=== PATIENT | female | born 1955 | race Caucasian/White ===

== ENCOUNTER 2020-06-04 03:18 | Outpatient (CLI) | payer MEDICAID, SELFPAY ==
--- NOTE | 2020-06-04 | DI.MRI_ITS ---
EXAM: MR LUMBAR SPINE WO INDICATION: RADICULOPATHY,M54.17, LOW BACK PAIN WITH RADIATION TO RLE,NUMBNESS,PAR-. COMPARISON: No exams were available for comparison TECHNIQUE: MR examination of the lumbosacral spine was performed according to the usual protocol. FINDINGS: No significant bony signal abnormality is seen. Intervertebral discs show normal signal. No signifi cant facet arthropathy identified. The conus medullaris appears intact. There is no evidence of a central canal spinal stenosis, or neural foraminal stenosis, in the lumbar region. No disc herniation is identified in the lumbar region. IMPRESSION: Negative lumbosacral spine MRI.
== END 2020-06-04 03:38 ==
PROVIDERS: PCP Internal Medicine; Visit Provider Internal Medicine
DX: M54.17 Radiculopathy, lumbosacral region (principal); R20.0 Anesthesia of skin
CPT/HCPCS: 72148

== ENCOUNTER 2020-09-07 01:27 | Outpatient (CLI) | payer MEDICAID, SELFPAY ==
--- NOTE | 2020-09-07 | DI.DEXA_ITS ---
Exam(s) XR DEXA BONE DENSITY W/WO LAZARO EXAM: XR DEXA BONE DENSITY W/WO LAZARO CLINICAL HISTORY: SCREENING OSTEOPOROSIS, Z13.820 TECHNIQUE: Routine DEXA evaluation of the lumbar spine, hip, or forearm. COMPARISON: No exams were available for comparison FINDINGS: Performed on a Hologic unit. Lateral image: No compression fracture evident. Lumbar Spine total T-score: -1.4 Hip total T-score:-2.3 Independent reading at the femoral neck yields a T-score -3.0 Forearm total T-score: -0.5 IMPRESSION: Bone mineral density measures in the osteoporosis range. Fracture risk is high. Note: Any spine fracture indicates 5x risk for subsequent spine fracture and 2x risk for subsequent h ip fracture. World Health Organization criteria for BMD interpretation classify patients: Normal...... T- Score at or above -1.0 Osteopenic... T- Score between -1.0 and -2.5 Osteoporosis... T-Score at or below -2.5
== END 2020-09-07 01:47 ==
PROVIDERS: PCP Internal Medicine; Visit Provider Internal Medicine
DX: Z13.820 Encounter for screening for osteoporosis (principal)
CPT/HCPCS: 77080

== ENCOUNTER 2020-09-15 10:03 | Emergency (ER) | payer MEDICAID, SELFPAY ==
[2020-09-15] VITALS (9 sets, daily range): BP systolic 131–152; BP diastolic 63–75; PULSE 69–84; RESP 18; TEMP 36.2; O2SAT 97–100
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
[2020-09-15] MEDS: Lidocaine/Epinephri/Tetracaine Topical Gel 3 ML TP (10:42)
--- NOTE | 2020-09-15 11:28 | DI.CT_ITS ---
Exam(s) CT HEAD WO EXAM: CT HEAD WO CLINICAL HISTORY: head injury. TECHNIQUE: Imaging Protocol: Axial computed tomography images with coronal and sagittal reformatted images were created and reviewed COMPARISON: No exams were available for comparison FINDINGS: Ventricles and Extra axial spaces: Normal in size and morphology for the patient's age. Hemorrhage: None. Cerebral parenchyma: No acute territorial infarct. There are areas of decreased attenuation scattere d in the white matter likely reflecting small vessel ischemic disease. Midline shift: None. Brainstem/Cerebellum: Normal. Calvarium: Normal. Visualized Paranasal sinuses/Mastoids: Clear. Soft Tissues: Unremarkable. IMPRESSION: 1. No acute intracranial process. 2. Results of this exam have been verbally communicated with provider. RADIATION DOSE DELIVERED: 607mGy.cm Total DLP DATA REPOSITORY: All CT scans at this facility are submitted to the National Radiology Data Registry (NRDR) Dose Index Registry (DIR) with the [employer] ([employer]). RADIATION OPTIMIZATION: All CT scans at this facility use at least one of these dose optimization te chniques: automated exposure control; mA and/or kV adjustment per patient size (includes targeted exa ms where dose is matched to clinical indication); or iterative reconstruction.
== END 2020-09-15 11:56 | disposition home or self-care (01) ==
PROVIDERS: Emergency Provider Physician Assistant; PCP Internal Medicine
DX: S01.01XA Laceration without foreign body of scalp, initial encounter (principal); W20.8XXA Other cause of strike by thrown, projected or falling object, initial encounter
CPT/HCPCS: 12001; 99284; 70450; 99283

== ENCOUNTER 2020-09-20 09:33 | Emergency (ER) | payer MEDICAID, SELFPAY ==
[2020-09-20 09:36] VITALS: BP 131/78; PULSE 81; TEMP 36.4; O2SAT 99
--- NOTE | 2020-09-20 09:36 | ED.GENADUL_ITS ---
Discharge Plan Disposition Patient Disposition: HOME Condition: Stable Discharge Details Clinical Impression: Encounter for removal of laura Primary Care Provider: Lalita Molina ED Provider: Alexis Silva Home Meds and New Rx's Prescriptions: Continued atorvastatin 10 mg tablet 10 mg PO DAILY RF: 0 diazepam 10 mg tablet 5 mg PO QHS PRNRF: 0 fluticasone propionate [Allergy Relief (fluticasone)] 50 mcg/actuation spray,suspension 2 spray intranasal DAILY RF: 0 hydrochlorothiazide 25 mg tablet 25 mg PO DAILY RF: 0 ibuprofen 600 mg tablet 600 mg PO TID RF: 0 loratadine 10 mg capsule 10 mg PO DAILY RF: 0 nystatin 100,000 unit/gram cream 1 applic topical BID RF: 0 omeprazole 40 mg capsule,delayed release(DR/EC) 40 mg PO DAILY RF: 0 albuterol sulfate [ProAir HFA] 90 mcg/actuation HFA aerosol inhaler 1 inh inhalation ONCE RF: 0 Trelegy Ellipta 100-62.5-25 mcg blister with device 1 inh inhalation DAILY RF: 0 Discharge Instructions Additional Instructions: Laura removed without difficulty. Laceration appears to be well-healing. Please watch for new or worsening symptoms and return to the ER for any concerns. Medical Decision Making 65-year-old female presenting for staple removal. No additional concerns or complaints. Laceration appears well-healed, will remove laura. Medical Records Medical records reviewed: Yes I reviewed the patient's medical records. HPI General Mode of arrival: ambulatory . Date/Time Provider Initiated Documentation: 09/20/20 09:34 . Limitations to Documentation: no limitations . Information obtained by: patient . HPI Narrative: This is a 65-year-old female presenting to the ER today for staple removal. Patient sustained a scalp laceration 5 days ago, 2 laura were placed. Patient has no acute concerns or complaints. Denies headache, fever, drainage from the laceration. Related Data Home Medications Medication Instructions Recorded Confirmed albuterol sulfate 90 mcg/actuation 1 inh INHALATION ONCE 08/12/20 09/15/20 aerosol inhaler atorvastatin 10 mg tablet 10 mg PO DAILY 08/12/20 09/15/20 diazepam 10 mg tablet 5 mg PO QHS PRN tab 08/12/20 09/15/20 fluticasone fur. 100 mcg-umeclid 1 inh INHALATION DAILY 08/12/20 09/15/20 62.5 mcg-vilant 25 mcg inhalat.powder fluticasone propionate 50 2 spray INTRANASAL DAILY 08/12/20 09/15/20 mcg/actuation nasal spray,suspension hydrochlorothiazide 25 mg tablet 25 mg PO DAILY 08/12/20 09/15/20 ibuprofen 600 mg tablet 600 mg PO TID 08/12/20 09/15/20 loratadine 10 mg capsule 10 mg PO DAILY 08/12/20 09/15/20 nystatin 100,000 unit/gram topical 1 applic TOPICAL BID 08/12/20 09/15/20 cream omeprazole 40 mg capsule,delayed 40 mg PO DAILY 08/12/20 09/15/20 release Allergies Allergy/AdvReac Type Severity Reaction Status Date / Time estrogens, conjugated Allergy Severe Anaphylaxis Verified 09/15/20 10:15 [From Prempro] medroxyprogesterone Allergy Severe Anaphylaxis Verified 09/15/20 10:15 [From Prempro] oxybutynin Allergy Severe Anaphylaxis Verified 09/15/20 10:15 General GAEL: 3 Review of Systems Constitutional Constitutional: Denies fever(s), Denies headache(s) and Denies weakness Eyes Eyes: Denies change in vision ENT Ears, Nose, Mouth, and Throat: Denies headache(s) Gastrointestinal Gastrointestinal: Denies nausea and Denies vomiting Musculoskeletal Musculoskeletal: Denies tingling Integumentary/Breasts Skin/Breast: Denies erythema Neurologic Neurologic: Denies headache(s), Denies tingling and Denies weakness [facility] Medical History Pharyngitis Social History Smoking/Tobacco Use Status: Former Tobacco Use Smoking risk assessment performed?: Yes Drug use: Never Substance use type: does not use Do you feel safe at home: Yes Do you feel safe in your relationship?: Yes Exam Const General: cooperative, healthy appearing, comfortable and no acute distress Orientation: alert, awake and oriented x3 HENMT Head: normocephalic and atraumatic Head images: 1. Well approximated laceration. 2 laura present. There is no warmth, eryt mack, drainage, discomfort to palpation. No signs of infection. Ears: hearing grossly normal bilaterally Face and sinus: normal facial exam Mouth: moist mucous membranes Eyes General: appearance normal, both eyes and all related structures Conjunctivae: conjunctivae normal Neck Neck: normal visual inspection, full ROM, trachea midline and supple Resp Effort & Inspection: normal respiratory effort and able to speak in complete sentences Skin General skin exam: no rashes or lesions noted Neuro General: patient alert, patient awake, moves all extremities and no focal motor deficits Sensory Exam: no sensory deficits noted Psych Appearance: grossly normal Mental Status: mental status grossly normal Procedures Other Description: 2 laura removed using staple remover. Patient tolerated well
== END 2020-09-20 10:12 | disposition home or self-care (01) ==
PROVIDERS: Emergency Provider Physician Assistant; PCP Internal Medicine
DX: S01.01XD Laceration without foreign body of scalp, subsequent encounter (principal); X58.XXXD Exposure to other specified factors, subsequent encounter; Z48.02 Encounter for removal of sutures

== ENCOUNTER 2020-10-22 02:26 | Outpatient (CLI) | payer MEDICAID, SELFPAY ==
[2020-10-22 08:56] LABS: ALT 30 U/L (14-59); AST 30 U/L (15-37); Albumin 3.9 g/dL (3.4-5.0); Alkaline Phosphatase 71 U/L (46-116); Anion Gap 7.3 mmol/L (3-11); BUN 10 mg/dL (7-18); Bilirubin, Total 0.6 mg/dL (0.2-1.0); CO2 31.7 mmol/L (21.0-32.0); CREATININE 0.9 mg/dL (0.55-1.02); Calculated LDL 110 mg/dL (<100); Chloride 100 mmol/L (98-107); Cholesterol 200 mg/dL (<200); Glucose 90 mg/dL (74-106); HDL Cholesterol 78 mg/dL (40-60); Potassium 3.3 mmol/L (3.5-5.1); Sodium 139 mmol/L (136-145); Total Protein 7.2 g/dL (6.4-8.2); Triglyceride 64 mg/dL (<150)
== END 2020-10-22 02:27 | disposition home or self-care (01) ==
LOC: LBO 02:26
PROVIDERS: PCP Internal Medicine; Visit Provider Internal Medicine
DX: E78.5 Hyperlipidemia, unspecified (principal)
CPT/HCPCS: 36415; 80053; 80061

== ENCOUNTER 2020-12-16 01:38 | Outpatient (CLI) | payer MEDICAID, SELFPAY ==
--- NOTE | 2020-12-16 | DI.US_ITS ---
Exam(s) US SOFT TISS ABD WALL/LOW BACK EXAM: US SOFT TISS ABD WALL/LOW BACK CLINICAL HISTORY: LIPOMA OF SKIN,D17.30,FULLNESS,MASS FLANK AREA. TECHNIQUE: Ultrasound was performed using standard protocol. COMPARISON: No exams were available for comparison FINDINGS: Sonographic assessment utilizing grayscale and color Doppler imaging was performed and targeted to th e area of clinical concern. There is a 5.5 x 1.1 x 6 cm isoechoic mass in the subcutaneous tissues corresponding to the palpable abnormality. Sonographically this is most consistent with a lipoma. IMPRESSION: 5.5 x 1.1 x 6 cm isoechoic mass in the subcutaneous tissues corresponding to the palpable abnormality likely reflecting lipoma. DATA REPOSITORY:
== END 2020-12-16 01:58 ==
PROVIDERS: PCP Internal Medicine; Visit Provider Internal Medicine
DX: D17.1 Benign lipomatous neoplasm of skin and subcutaneous tissue of trunk (principal)
CPT/HCPCS: 76705

== ENCOUNTER 2021-01-10 09:45 | Emergency (ER) | payer MEDICAID, SELFPAY ==
[2021-01-10] VITALS (21 sets, daily range): BP systolic 113–136; BP diastolic 60–94; PULSE 68–92; RESP 19–26; TEMP 36.8; O2SAT 94–99
--- NOTE | 2021-01-10 09:45 | RT.EKG_ITS ---
APPROVED REPORT Exam: Resting ECG Reason for Exam: feeling unwell Patient Location: E HR:80 bpm ECG Measurements Heart Rate 80 AXIS CA 132 P 72 QRSd 95 QRS -16 QT 363 T 54 QTc 419 Conclusion Sinus rhythm...normal P axis, V-rate 60- 99 no STEMI, non-diagnostic EKG I have reviewed and interpreted ECG and agree with software generated interpretation.
--- NOTE | 2021-01-10 10:00 | DI.RAD_ITS ---
Exam(s) XR PORTABLE CHEST AP EXAM: XR PORTABLE CHEST AP CLINICAL HISTORY: cough. TECHNIQUE: 2D digital imaging was performed. COMPARISON: No exams were available for comparison FINDINGS: Heart size is upper normal. The mediastinum is not widened. Lungs are clear. No infiltrates nor obvious pleural effusions. IMPRESSION: No acute pulmonary findings on this single AP portable view of the chest. DATA REPOSITORY: RADIATION DOSE DELIVERED: All CT scans at this facility use at least one of these dose optimization techniques: automated exposure control; mA and/or kV adjustment per patient size (includes targeted e xams where dose is matched to clinical indication); or iterative reconstruction.
--- NOTE | 2021-01-10 10:26 | W.ED.GENAD ---
Discharge Plan Disposition Patient Disposition: HOME Condition: Stable Discharge Details Clinical Impression: URI (upper respiratory infection) Primary Care Provider: Lalita Molina ED Provider: Alexis Silva Home Meds and New Rx's Prescriptions: Continued bisacodyl [Dulcolax (bisacodyl)] 5 mg tablet,delayed release (DR/EC) 5 mg PO ONCE Qty: 4 RF: 0 polyethylene glycol 3350 17 gram/dose powder 17 g PO ONCE Qty: 238 RF: 0 diazepam 10 mg tablet 5 mg PO QHS PRNRF: 0 fluticasone propionate [Allergy Relief (fluticasone)] 50 mcg/actuation spray,suspension 2 spray intranasal DAILY RF: 0 ibuprofen 600 mg tablet 600 mg PO TID RF: 0 loratadine 10 mg capsule 10 mg PO DAILY RF: 0 omeprazole 40 mg capsule,delayed release(DR/EC) 40 mg PO DAILY RF: 0 albuterol sulfate [ProAir HFA] 90 mcg/actuation HFA aerosol inhaler 1 inh inhalation ONCE RF: 0 Trelegy Ellipta 100-62.5-25 mcg blister with device 1 inh inhalation DAILY RF: 0 atorvastatin 10 mg tablet 20 mg PO DAILY RF: 0 Discharge Instructions Instructions: Upper Respiratory Infection (ED) Additional Instructions: Work-up in the ER does not reveal any obvious emergent process. You may use jejz-zww-fhuijzp medications for symptomatic control. Specifically we talked about Chloraseptic Roland for your sore throat. Please watch for new or worsening symptoms and return to the ER for any concerns. I have placed you on the care management list to help expedite outpatient primary care follow up Medical Decision Making 65-year-old female presents to the ER with 3-4-day history of URI-like symptoms, she is fully vaccinated. Given her age, complaint of chest pressure when coughing, will obtain a single troponin EKG although given her presentation extremely low suspicion for ACS. Also extremely low suspicion for PE, we will not pursue CTA of the chest. Will obtain IV access, CBC, CMP, single troponin, flu, Covid, rapid strep, chest x-ray. Patient appears well, nontoxic, afebrile, not requiring any supplemental oxygen. Patient is comfortable with this plan and has no additional questions or concerns. Laboratory values are unremarkable for obvious emergent process. Minimal nonspecific leukocytosis of 11.38, hemoglobin 12.4 hematocrit 37.4 platelet count 268. Electrolytes unremarkable, creatinine 1.0 with a GFR of 56. Glucose 102 calcium 8.9 troponin less than 0.05, flu negative, Covid negative Chest x-ray unremarkable. Patient without wheezing, not requiring any neb treatments, steroids, submental oxygen. Given the duration of her symptoms, single troponin reasonable for cardiac rule out. Patient appears well, nontoxic. We discussed her evaluation, work-up, disposition. Patient comfortable with discharge at this time. No clear indication for emergent antibiotic therapy. We discussed [id number] medications for symptomatic control. Strict discharge and return precautions provided. Patient does not have a primary care provider that she was placed on the care management list to help expedite outpatient primary care follow-up. Patient without any additional questions or concerns. This documentation was generated using [employer] system, please disregard any oddities of phrase or misspellings. Medical Records Medical records reviewed: Yes I reviewed the patient's medical records. Imaging Data Radiologic Study: Attestation: I personally reviewed and interpreted this imaging study as follows: Imaging: X-Ray Radiologist's impression: EXAM XR PORTABLE CHEST AP CLINICAL HISTORY [ cough. ] [] TECHNIQUE 2D digital imaging was performed. COMPARISON [No exams were available for comparison] [] FINDINGS [Heart size is upper normal]. The mediastinum is not widened. [Lungs are clear. No infiltrates nor obvious pleural effusions.] [] [] IMPRESSION [No acute pulmonary findings on this single AP portable view of the chest. Lab Data Lab results reviewed: Yes I reviewed the patient's lab results. Labs: 01/10/21 10:42 Tonsil - Not Specified Group A Streptococcus Culture - Pending 01/10/21 10:16 Nasopharynx Influenza Types A,B Antigen - Final Laboratory Tests Range/Units 01/10/21 01/10/21 01/10/21 10:12 10:16 10:30 WBC (4.4-10.8) 10^3/uL RBC (3.93-5.22) 10^6/uL Hgb (11.2-15.7) g/dL Hct (36.0-46.0) % MCV (80-95) fL MCH (27.0-33.0) pg MCHC (32.0-36.0) % RDW (11.7-14.6) % Plt Count (130-400) 10^3/uL MPV (8.0-11.0) fL Immature Gran % Neutrophils % Lymphocytes % Monocytes % Eosinophils % Basophils % Nucleated RBC % % Absolute Neutrophils (1.2-6.7) 10^3/uL Absolute Lymphocytes (1.2-3.4) 10^3/uL Absolute Monocytes (0.1-0.8) 10^3/uL Absolute Eosinophils (0.0-0.7) 10^3/uL Absolute Basophils (0.0-0.2) 10^3/uL Sodium (136-145) mmol/L 141 Potassium (3.5-5.1) mmol/L 3.5 Chloride (98-107) mmol/L 104 Carbon Dioxide (21.0-32.0) mmol/L 29.8 Anion Gap (3-11) mmol/L 7.2 BUN (7-18) mg/dL 9 Creatinine (0.55-1.02) mg/dL 1.0 Estimated GFR/1.73 m2 (mL/min/1.73m2) 56.00 Glucose (74-106) mg/dL 102 Calcium (8.5-10.1) mg/dL 8.9 Total Bilirubin (0.2-1.0) mg/dL 0.6 AST (15-37) U/L 13 L ALT (14-59) U/L 24 Alkaline Phosphatase (46-116) U/L 91 Troponin I (<0.06) ng/mL Total Protein (6.4-8.2) g/dL 7.7 Albumin (3.4-5.0) g/dL 3.6 COVID-19 Source Cancelled NASOPHARYX SARS-CoV-2 (PCR) Cancelled Negative Range/Units 01/10/21 01/10/21 10:30 10:30 WBC (4.4-10.8) 10^3/uL 11.38 H RBC (3.93-5.22) 10^6/uL 3.80 L Hgb (11.2-15.7) g/dL 12.4 Hct (36.0-46.0) % 37.4 MCV (80-95) fL 98.4 H MCH (27.0-33.0) pg 32.6 MCHC (32.0-36.0) % 33.2 RDW (11.7-14.6) % 12.4 Plt Count (130-400) 10^3/uL 268 MPV (8.0-11.0) fL 9.8 Immature Gran % 0.4 Neutrophils % 79.4 Lymphocytes % 10.1 Monocytes % 9.4 Eosinophils % 0.3 Basophils % 0.4 Nucleated RBC % % 0 Absolute Neutrophils (1.2-6.7) 10^3/uL 9.04 H Absolute Lymphocytes (1.2-3.4) 10^3/uL 1.15 L Absolute Monocytes (0.1-0.8) 10^3/uL 1.07 H Absolute Eosinophils (0.0-0.7) 10^3/uL 0.03 Absolute Basophils (0.0-0.2) 10^3/uL 0.05 Sodium (136-145) mmol/L Potassium (3.5-5.1) mmol/L Chloride (98-107) mmol/L Carbon Dioxide (21.0-32.0) mmol/L Anion Gap (3-11) mmol/L BUN (7-18) mg/dL Creatinine (0.55-1.02) mg/dL Estimated GFR/1.73 m2 (mL/min/1.73m2) Glucose (74-106) mg/dL Calcium (8.5-10.1) mg/dL Total Bilirubin (0.2-1.0) mg/dL AST (15-37) U/L ALT (14-59) U/L Alkaline Phosphatase (46-116) U/L Troponin I (<0.06) ng/mL < 0.05 Total Protein (6.4-8.2) g/dL Albumin (3.4-5.0) g/dL COVID-19 Source SARS-CoV-2 (PCR) ECG Data Attestation: I personally reviewed and interpreted this ECG (s) as follows: Interpretation: Please see official report by Dr. Kemp. Sinus rhythm, ventricular rate of 88, no STEMI HPI General Mode of arrival: ambulatory. Date/Time Provider Initiated Documentation: 01/10/21 10:04. Limitations to Documentation: no limitations. Information obtained by: patient. HPI Narrative: Jaron is a 65-year-old female, past medical history of asthma-COPD, GERD, hypertension, hyperlipidemia, anxiety, former smoker, presenting to the ER for multiple complaints, reporting a head cold, mild headache, nasal congestion, sneezing, general fatigue, and what she describes as a sometimes productive cough, and sore throat. She reports mild chest pressure when coughing but no real chest pressure at baseline. She denies chest pain or shortness of breath. Patient has not taken any [id number] medications for her symptoms. She denies fever, visual changes, neck pain, back pain, abdominal pain, nausea, vomiting, dysuria, diarrhea, pain or swelling her legs. Patient states that she is fully vaccinated against Covid. Reports that a friend had similar symptoms a week or so ago. Patient states her symptoms been present for the past 3-4 days. Related Data Home Medications Medication Instructions Recorded Confirmed albuterol sulfate 90 mcg/actuation 1 inh INHALATION ONCE 08/12/20 01/10/21 aerosol inhaler diazepam 10 mg tablet 5 mg PO QHS PRN tab 08/12/20 01/10/21 fluticasone fur. 100 mcg-umeclid 1 inh INHALATION DAILY 08/12/20 01/10/21 62.5 mcg-vilant 25 mcg inhalat.powder fluticasone propionate 50 2 spray INTRANASAL DAILY 08/12/20 01/10/21 mcg/actuation nasal spray,suspension ibuprofen 600 mg tablet 600 mg PO TID 08/12/20 01/10/21 loratadine 10 mg capsule 10 mg PO DAILY 08/12/20 01/10/21 omeprazole 40 mg capsule,delayed 40 mg PO DAILY 08/12/20 01/10/21 release atorvastatin 10 mg tablet 20 mg PO DAILY tab 12/23/20 01/10/21 bisacodyl 5 mg tablet,delayed 5 mg PO ONCE #4 tab 12/30/20 01/10/21 release polyethylene glycol 3350 17 17 g PO ONCE #238 g 12/30/20 01/10/21 gram/dose oral powder Previous Rx's Medication Instructions Recorded bisacodyl 5 mg tablet,delayed 5 mg PO ONCE #4 tab 12/30/20 release polyethylene glycol 3350 17 17 g PO ONCE #238 g 12/30/20 gram/dose oral powder Allergies Allergy/AdvReac Type Severity Reaction Status Date / Time estrogens, conjugated Allergy Severe Anaphylaxis Verified 12/30/20 08:46 [From Prempro] medroxyprogesterone Allergy Severe Anaphylaxis Verified 12/30/20 08:46 [From Prempro] oxybutynin Allergy Severe Anaphylaxis Verified 12/30/20 08:46 General Stated Complaint: RespSymp GAEL: 3 Review of Systems Constitutional Constitutional: Denies fatigue, Denies fever(s), Reports headache(s) and Denies weakness Eyes Eyes: Denies eye discharge ENT Ears, Nose, Mouth, and Throat: Reports headache(s), Denies neck pain and Reports sore throat Cardiovascular Cardiovascular: Reports chest pain (Pressure with cough) and Denies dyspnea Respiratory Respiratory: Reports cough and Denies dyspnea Gastrointestinal Gastrointestinal: Denies abdominal pain, Denies diarrhea, Denies nausea and Denies vomiting Genitourinary Genitourinary: Denies dysuria Musculoskeletal Musculoskeletal: Denies back pain, Reports myalgias and Denies neck pain Integumentary/Breasts Skin/Breast: Denies rash Neurologic Neurologic: Reports headache(s) and Denies weakness Endocrine Endocrine: Denies fatigue [facility] [place] Medical History Crushing injury of left hand Pharyngitis Social History Smoking/Tobacco Use Status: Former Tobacco Use Smoking risk assessment performed?: Yes Alcohol Intake: current Alcohol Intake frequency: a few times a week Alcohol type: beer Drug use: Never Substance use type: does not use Do you feel safe at home: Yes Do you feel safe in your relationship?: Yes Exam Const General: cooperative, healthy appearing, comfortable and no acute distress Orientation: alert, awake and oriented x3 HENMT Head: normal to inspection, normocephalic and atraumatic Ears: external ears normal, TM's normal bilaterally and EAC's normal General nose exam: external nose normal Face and sinus: normal facial exam Mouth: oral mucosae normal and moist mucous membranes Throat: posterior oropharynx normal Eyes General: appearance normal, both eyes and all related structures Conjunctivae: conjunctivae normal Neck Neck: normal visual inspection, full ROM, no lymphadenopathy, no meningeal signs, trachea midline, supple and nontender Resp Effort & Inspection: normal respiratory effort, able to speak in complete sentences and cough Quality of cough: dry (Mild) Auscultation: clear to auscultation bilaterally Cardio Rate: regular rate Rhythm: regular rhythm GI Inspection: normal to inspection Palpation: soft, not firm, no guarding, no pulsatile masses and nontender Auscultation: normal bowel sounds Back/Spine/Pelvis Back: No back tenderness Skin General skin exam: no rashes or lesions noted Neuro General: patient alert, patient awake, moves all extremities and no focal motor deficits Cognition: normal cognition Speech: speech normal Gait: normal gait Motor: muscle tone normal throughout Sensory Exam: no sensory deficits noted Extrem General: normal to inspection, full ROM, capillary refill normal, no pedal edema and no calf tenderness Psych Appearance: grossly normal Mental Status: mental status grossly normal Course Vital Signs Vital signs: Vital Signs Temperature 36.8 C 01/10/21 09:52 Pulse 92 H 01/10/21 09:52 Respiratory Rate 23 01/10/21 09:52 Blood Pressure 123/70 01/10/21 09:52 Pulse Oximetry 97 01/10/21 09:52 Temperature 36.8 C 01/10/21 09:52 Temperature Source Oral 01/10/21 09:52 Pulse 92 H 01/10/21 09:52 Respiratory Rate 23 01/10/21 09:52 Respiratory Effort Short of Breath 01/10/21 10:05 Respiratory Depth Normal 01/10/21 10:05 Blood Pressure 123/70 01/10/21 09:52 Blood Pressure Position Sitting 01/10/21 09:52 Pulse Oximetry 97 01/10/21 09:52 Oxygen Delivery Method Room Air 01/10/21 09:52 Oxygen Flow Rate 0 01/10/21 09:52 Pain Level 5 01/10/21 09:52 Lab/Test Results Lab/Test Results: 01/10/21 10:16 Nasopharynx Influenza Types A,B Antigen - Pending Laboratory Tests Range/Units 01/10/21 01/10/21 10:12 10:16 COVID-19 Source Cancelled NASOPHARYX SARS-CoV-2 (PCR) Cancelled
[2021-01-10 10:41] LABS: Abs Immature Grans 0.05 10^3/uL (0.0-0.06); Absolute Eosinophil Count 0.03 10^3/uL (0.0-0.7); Absolute Lymphocyte Count 1.15 10^3/uL (1.2-3.4); Absolute Monocyte Count 1.07 10^3/uL (0.1-0.8); Absolute Neutrophil Count 9.04 10^3/uL (1.2-6.7); Basophils % 0.4; Eosinophils % 0.3; HCT 37.4 % (36.0-46.0); HGB 12.4 g/dL (11.2-15.7); Immature Grans % 0.4; Lymphocytes % 10.1; MCH 32.6 pg (27.0-33.0); MCHC 33.2 % (32.0-36.0); MCV 98.4 fL (80-95); MPV 9.8 fL (8.0-11.0); Monocytes % 9.4; Neutrophils % 79.4; Nucleated RBC 0 %; Platelet Count 268 10^3/uL (130-400); RDW 12.4 % (11.7-14.6); RDW-SD 44.9 fL; WBC 11.38 10^3/uL (4.4-10.8)
[2021-01-10 10:42] LABS: Absolute Basophil Count 0.05 10^3/uL (0.0-0.2)
[2021-01-10 10:55] LABS: ALT 24 U/L (14-59); AST 13 U/L (15-37); Albumin 3.6 g/dL (3.4-5.0); Alkaline Phosphatase 91 U/L (46-116); Anion Gap 7.2 mmol/L (3-11); BUN 9 mg/dL (7-18); Bilirubin, Total 0.6 mg/dL (0.2-1.0); CO2 29.8 mmol/L (21.0-32.0); Calcium 8.9 mg/dL (8.5-10.1); Chloride 104 mmol/L (98-107); Glucose 102 mg/dL (74-106); Potassium 3.5 mmol/L (3.5-5.1); Sodium 141 mmol/L (136-145); Total Protein 7.7 g/dL (6.4-8.2)
[2021-01-10 11:00] LABS: Troponin I < 0.05 ng/mL (<0.06)
[2021-01-10 11:20] LABS: COVID-19 PCR Negative (Negative)
--- NOTE | 2021-01-10 14:23 | PDOC.ERCMPRO ---
- If Service Date Differs Date of service: 01/10/21 Time of Service: 14:23 Care Management Progress Note Leah is seen in the ED for an upper respiratory infection. CM is asked to set Leah up with a PCP but a review of her chart reveals that she is already an established patient at [facility]. [facility] telephones the [facility] office and learns that Leah sees Lalita Molina PA-C. They will outreach to Leah to schedule a follow up appointment.
== END 2021-01-10 13:18 | disposition home or self-care (01) ==
PROVIDERS: Emergency Provider Physician Assistant; PCP Internal Medicine
DX: J06.9 Acute upper respiratory infection, unspecified (principal); R07.89 Other chest pain; J02.9 Acute pharyngitis, unspecified; J44.9 Chronic obstructive pulmonary disease, unspecified; Z87.891 Personal history of nicotine dependence; Z20.822 Contact with and (suspected) exposure to COVID-19; Z03.818 Encounter for observation for suspected exposure to other biological agents ruled out
CPT/HCPCS: 36415; 80053; 87449; 87635; 87880; 93005; 99285; 71045; 84484; 85025; 87081; 93010

== ENCOUNTER 2021-01-14 11:59 | Emergency (ER) | payer MEDICAID, SELFPAY ==
[2021-01-14 12:03] VITALS: BP 137/75; PULSE 93; RESP 18; TEMP 36.5; O2SAT 98
--- NOTE | 2021-01-14 12:15 | DI.RAD_ITS ---
Exam(s) XR CHEST 2V PA LATERAL EXAM: XR CHEST 2V PA LATERAL CLINICAL HISTORY: cough, shortness of breath TECHNIQUE: 2D digital imaging was performed. COMPARISON: CR XR PORTABLE CHEST AP from 01/10/2021 FINDINGS: MEDIASTINUM: Normal. HEART: Normal. PULMONARY VASCULATURE: Normal. LUNGS: No focal consolidation. Mild interstitial changes. PLEURAL SPACE: No pleural effusion or pneumothorax. BONE:Unremarkable for age. IMPRESSION: No acute abnormality. DATA REPOSITORY: RADIATION DOSE DELIVERED:
--- NOTE | 2021-01-14 12:27 | ED.GENADUL_ITS ---
Discharge Plan Disposition Patient Disposition: HOME Condition: Stable Discharge Details Clinical Impression: Bronchitis, COPD (chronic obstructive pulmonary disease) Primary Care Provider: Lalita Molina ED Provider: Leatha Mace Home Meds and New Rx's Prescriptions: New doxycycline hyclate 100 mg capsule 100 mg PO BID Qty: 14 RF: 0 Saccharomyces boulardii [Florastor] 250 mg capsule 250 mg PO BID Qty: 14 RF: 0 prednisone 20 mg tablet 40 mg PO DAILY 4 Days Qty: 8 RF: 0 benzonatate [Tessalon Perles] 100 mg capsule 100 mg PO BID PRNQty: 10 RF: 0 Combivent Respimat 20-100 mcg/actuation mist 1 puff inhalation Q6H Qty: 4 RF: 0 Continued bisacodyl [Dulcolax (bisacodyl)] 5 mg tablet,delayed release (DR/EC) 5 mg PO ONCE Qty: 4 RF: 0 polyethylene glycol 3350 17 gram/dose powder 17 g PO ONCE Qty: 238 RF: 0 diazepam 10 mg tablet 5 mg PO QHS PRNRF: 0 fluticasone propionate [Allergy Relief (fluticasone)] 50 mcg/actuation spray,suspension 2 spray intranasal DAILY RF: 0 ibuprofen 600 mg tablet 600 mg PO TID RF: 0 loratadine 10 mg capsule 10 mg PO DAILY RF: 0 omeprazole 40 mg capsule,delayed release(DR/EC) 40 mg PO DAILY RF: 0 albuterol sulfate [ProAir HFA] 90 mcg/actuation HFA aerosol inhaler 1 inh inhalation ONCE RF: 0 Trelegy Ellipta 100-62.5-25 mcg blister with device 1 inh inhalation DAILY RF: 0 atorvastatin 10 mg tablet 20 mg PO DAILY RF: 0 Discharge Instructions Instructions: Acute Bronchitis (ED), COPD (Chronic Obstructive Pulmonary Disease) (ED) Additional Instructions: Florastor daily, doxycycline twice daily for 7 days Prednisone starting tomorrow you received a dose today Use your Combivent instead of your albuterol or ProAir every 6 hours Stay hydrated Tessalon Perles as needed for cough Follow-up with your primary care physician in 1 to 2 days for reevaluation Return with fever, chills, worsening shortness of breath, or should you have new or worsening complaints Referrals: Lalita oMlina [Primary Care Provider] - Medical Decision Making Patient appears well, she is in no respiratory distress given her history of worsening shortness of breath I did order Combivent, steroids, doxycycline as she is a COPD her I suspect she has bronchitis, she has a negative Covid test from 3 days prior, no indication to repeat Chest x-ray does not show acute abnormality Return precautions discussed and patient understanding, no suspicion for cardiac etiology of patient's complaints and she had an excellent work-up on her previous exam, I do not think she warrants additional testing at this time Medical Records Medical records reviewed: Yes I reviewed the patient's medical records. Lab Data Lab results reviewed: Yes I reviewed the patient's lab results. HPI General Mode of arrival: ambulatory . Date/Time Provider Initiated Documentation: 01/14/21 11:59 . Limitations to Documentation: no limitations . Information obtained by: patient . HPI Narrative: This 65-year-old female presents with upper respiratory symptoms for the past 6 days. She was evaluated previously in the emergency room diagnosed with upper respiratory infection. She presents secondary to worsening shortness of breath. She denies any chest pain. She states she has negative for Covid and is Covid vaccinated. She. She does not currently smoke. She denies any hemoptysis, calf pain or swelling, recent flights, surgeries, long drives. She denies any associated pleuritic discomfort. She denies any known fever or chills. She is not been taking any [id number] medications. Related Data Home Medications Medication Instructions Recorded Confirmed albuterol sulfate 90 mcg/actuation 1 inh INHALATION ONCE 08/12/20 01/14/21 aerosol inhaler diazepam 10 mg tablet 5 mg PO QHS PRN tab 08/12/20 01/14/21 fluticasone fur. 100 mcg-umeclid 1 inh INHALATION DAILY 08/12/20 01/14/21 62.5 mcg-vilant 25 mcg inhalat.powder fluticasone propionate 50 2 spray INTRANASAL DAILY 08/12/20 01/14/21 mcg/actuation nasal spray,suspension ibuprofen 600 mg tablet 600 mg PO TID 08/12/20 01/14/21 loratadine 10 mg capsule 10 mg PO DAILY 08/12/20 01/14/21 omeprazole 40 mg capsule,delayed 40 mg PO DAILY 08/12/20 01/14/21 release atorvastatin 10 mg tablet 20 mg PO DAILY tab 12/23/20 01/14/21 bisacodyl 5 mg tablet,delayed 5 mg PO ONCE #4 tab 12/30/20 01/10/21 release polyethylene glycol 3350 17 17 g PO ONCE #238 g 12/30/20 01/14/21 gram/dose oral powder Saccharomyces boulardii [Florastor] 250 mg PO BID #14 cap 01/14/21 benzonatate [Tessalon Perles] 100 mg PO BID PRN #10 cap 01/14/21 doxycycline hyclate 100 mg PO BID #14 cap 01/14/21 ipratropium-albuterol [Combivent 1 puff INHALATION Q6H #4 g 01/14/21 Respimat] prednisone 40 mg PO DAILY 4 Days #8 tab 01/14/21 Previous Rx's Medication Instructions Recorded bisacodyl 5 mg tablet,delayed 5 mg PO ONCE #4 tab 12/30/20 release polyethylene glycol 3350 17 17 g PO ONCE #238 g 12/30/20 gram/dose oral powder Saccharomyces boulardii [Florastor] 250 mg PO BID #14 cap 01/14/21 benzonatate [Tessalon Perles] 100 mg PO BID PRN #10 cap 01/14/21 doxycycline hyclate 100 mg PO BID #14 cap 01/14/21 ipratropium-albuterol [Combivent 1 puff INHALATION Q6H #4 g 01/14/21 Respimat] prednisone 40 mg PO DAILY 4 Days #8 tab 01/14/21 Allergies Allergy/AdvReac Type Severity Reaction Status Date / Time estrogens, conjugated Allergy Severe Anaphylaxis Verified 01/14/21 12:09 [From Prempro] medroxyprogesterone Allergy Severe Anaphylaxis Verified 01/14/21 12:09 [From Prempro] oxybutynin Allergy Severe Anaphylaxis Verified 01/14/21 12:09 General Stated Complaint: RespSymp GAEL: 3 Review of Systems All systems reviewed & are unremarkable except as noted in HPI and below PFSH Medical History Crushing injury of left hand Pharyngitis Social History Smoking/Tobacco Use Status: Former Tobacco Use Smoking risk assessment performed?: Yes Alcohol Intake: current Alcohol Intake frequency: a few times a week Alcohol type: beer Drug use: Never Substance use type: does not use Do you feel safe at home: Yes Do you feel safe in your relationship?: Yes Exam Const General: cooperative, comfortable and no acute distress HENMT Mouth: oral mucosae normal Other: Uvula midline Eyes Pupils: PERRL Resp Effort & Inspection: normal respiratory effort Auscultation: clear to auscultation bilaterally Cardio Rate: regular rate Rhythm: regular rhythm Skin General skin exam: no rashes or lesions noted Neuro General: patient alert and patient oriented x3 Extrem Other: No calf swelling or tenderness appreciated Course Vital Signs Vital signs: Vital Signs Temperature 36.5 C 01/14/21 12:03 Pulse 93 H 01/14/21 12:03 Respiratory Rate 18 01/14/21 12:03 Blood Pressure 137/75 01/14/21 12:03 Pulse Oximetry 98 01/14/21 12:03 Temperature 36.5 C 01/14/21 12:03 Temperature Source Skin 01/14/21 12:03 Pulse 93 H 01/14/21 12:03 Respiratory Rate 18 01/14/21 12:03 Blood Pressure 137/75 01/14/21 12:03 Blood Pressure Position Sitting 01/14/21 12:03 Pulse Oximetry 98 01/14/21 12:03 Oxygen Delivery Method Room Air 01/14/21 12:03 Oxygen Flow Rate 0 01/14/21 12:03 Pain Level 8 01/14/21 12:03 PAWSS Have you Been Recently Intoxicated or Drunk Within the Last 30 days?: No Have you Ever Experienced Previous Episodes of Alcohol Withdrawal?: No Have you ever Experienced Withdrawal Seizures?: No Have you ever Experienced Delirium Tremens(DT)s?: No Have you ever undergone Alcohol Rehabilitation Treatment (i.e, inpt ot outpatient treatment programs)?: No Have you ever Experienced Blackouts?: No Have you ever Combined Alcohol with other Downers within the last 90 days?: No Have you ever Combined Alcohol with any other Substance of Abuse during the last 90 days?: No Positive Blood Alcohol level on Presentation? [PCS.BAL]: No Evidence of Increased Autonomic Activity (i.e. HR>120, tremor, sweating, agitation, nausea)?: No Result: 0
[2021-01-14 12:59] VITALS: RESP 1
[2021-01-14] MEDS: predniSONE 20 MG TAB 40 MG PO (12:59)
[2021-01-14] MEDS: Albuterol/Ipratropium 3 ML UPD VIAL (12:59)
[2021-01-14 13:23] VITALS: BP 119/79; PULSE 90; RESP 16; TEMP 36.6; O2SAT 97
== END 2021-01-14 13:27 | disposition home or self-care (01) ==
PROVIDERS: Emergency Provider Physician Assistant; PCP Internal Medicine
DX: J44.0 Chronic obstructive pulmonary disease with (acute) lower respiratory infection (principal); J20.8 Acute bronchitis due to other specified organisms; Z87.891 Personal history of nicotine dependence
CPT/HCPCS: 94640; 99283; 71046; J3490; J7512; J7620

== ENCOUNTER 2021-01-17 11:30 | Emergency (ER) | payer MEDICAID, SELFPAY ==
[2021-01-17 11:36] VITALS: BP 152/68; PULSE 86; RESP 26; TEMP 36.8; O2SAT 100
--- NOTE | 2021-01-17 11:36 | RT.EKG_ITS ---
APPROVED REPORT Exam: Resting ECG Reason for Exam: sob Patient Location: E HR:83 bpm ECG Measurements Heart Rate 83 AXIS HI 136 P 64 QRSd 83 QRS -10 QT 351 T 51 QTc 414 Conclusion Sinus rhythm...normal P axis, V-rate 60- 99
--- NOTE | 2021-01-17 12:18 | ED.GENADUL_ITS ---
Discharge Plan Disposition Patient Disposition: HOME Condition: Improving Discharge Details Clinical Impression: URI (upper respiratory infection) Primary Care Provider: Lalita Molina ED Provider: Elisha Rivera Home Meds and New Rx's Prescriptions: Continued bisacodyl [Dulcolax (bisacodyl)] 5 mg tablet,delayed release (DR/EC) 5 mg PO ONCE Qty: 4 RF: 0 polyethylene glycol 3350 17 gram/dose powder 17 g PO ONCE Qty: 238 RF: 0 diazepam 10 mg tablet 5 mg PO QHS PRNRF: 0 fluticasone propionate [Allergy Relief (fluticasone)] 50 mcg/actuation spray,suspension 2 spray intranasal DAILY RF: 0 ibuprofen 600 mg tablet 600 mg PO TID RF: 0 loratadine 10 mg capsule 10 mg PO DAILY RF: 0 omeprazole 40 mg capsule,delayed release(DR/EC) 40 mg PO DAILY RF: 0 albuterol sulfate [ProAir HFA] 90 mcg/actuation HFA aerosol inhaler 1 inh inhalation ONCE RF: 0 Trelegy Ellipta 100-62.5-25 mcg blister with device 1 inh inhalation DAILY RF: 0 atorvastatin 10 mg tablet 20 mg PO DAILY RF: 0 doxycycline hyclate 100 mg capsule 100 mg PO BID Qty: 14 RF: 0 Saccharomyces boulardii [Florastor] 250 mg capsule 250 mg PO BID Qty: 14 RF: 0 benzonatate [Tessalon Perles] 100 mg capsule 100 mg PO BID PRNQty: 10 RF: 0 Combivent Respimat 20-100 mcg/actuation mist 1 puff inhalation Q6H Qty: 4 RF: 0 Discharge Instructions Instructions: Upper Respiratory Infection (ED) Additional Instructions: It is reassuring that your symptoms are improving and that you want to begin your physical activity once again. As we discussed, please begin slowly. You may use Tylenol and ibuprofen as needed for discomfort. Encourage hydration. Please follow-up with primary care in the next 1 to 2 weeks for reevaluation. Please continue with the medications as previously prescribed. If you develop any new or worsening symptoms please seek care urgently once again. Referrals: Lalita Molina [Primary Care Provider] - Discharge Data Discharge Date/Time-TO BE ENTERED AT DEPARTURE: 01/17/21 12:30 Medical Decision Making Patient is a pleasant 65 year old female presenting today with c/c of continued URI. States her symptoms are improving. She had been experiencing SOB, this has been improving since starting Doxycycline and prednisone. She denies CP. States she is still having cough and can have discomfort with her cough. Improves with APAP. States that this is improving as well since her recent visit. She is questioning if she can start exercising again. ECG was obtained. Reviewed by Dr. Baez. NSR, no acute ischemic changes noted. On exam, patient appears non toxic. Lungs clear, no respiratory distress. She has some tenderness along left lower side of her chest wall. No rash. Normal cardiac exam. we discussed treatment options. She sounds to be improving. Gave advise on returning to exercise. Advised to start slow. She will continue with her previously prescribed medications. She would like to hold off on further workup as she states she is improving. Return precautions discussed. She will f/u with PCP in the next 1-2 weeks for revaluation. All of her questions and concerns were addressed, she is in agreement with this plan. HPI General Mode of arrival: ambulatory . Date/Time Provider Initiated Documentation: 01/17/21 11:38 . Limitations to Documentation: no limitations . Information obtained by: patient and RN notes reviewed . HPI Narrative: Patient is a pleasant 65 year old female presenting today with c/c of continued cough and feeling unwell. States she initially became ill on 01/10. Was seen in the ED at which time thorough workup was completed. She then came back in a few days later at which time she was treated for COPD exacerbation. She is currently on abx and steroids. She states that each day she feels slightly improved. Wants to be able to exercise and was not sure if she should do so as she still has some persistant symptoms. She states that she is getting better with time and above intervention. She is not having worsening CP, no increased SOB. Related Data Home Medications Medication Instructions Recorded Confirmed albuterol sulfate 90 mcg/actuation 1 inh INHALATION ONCE 08/12/20 01/14/21 aerosol inhaler diazepam 10 mg tablet 5 mg PO QHS PRN tab 08/12/20 01/14/21 fluticasone fur. 100 mcg-umeclid 1 inh INHALATION DAILY 08/12/20 01/14/21 62.5 mcg-vilant 25 mcg inhalat.powder fluticasone propionate 50 2 spray INTRANASAL DAILY 08/12/20 01/14/21 mcg/actuation nasal spray,suspension ibuprofen 600 mg tablet 600 mg PO TID 08/12/20 01/14/21 loratadine 10 mg capsule 10 mg PO DAILY 08/12/20 01/14/21 omeprazole 40 mg capsule,delayed 40 mg PO DAILY 08/12/20 01/14/21 release atorvastatin 10 mg tablet 20 mg PO DAILY tab 12/23/20 01/14/21 bisacodyl 5 mg tablet,delayed 5 mg PO ONCE #4 tab 12/30/20 01/10/21 release polyethylene glycol 3350 17 17 g PO ONCE #238 g 12/30/20 01/14/21 gram/dose oral powder Combivent Respimat 1 puff INHALATION Q6H #4 g 01/14/21 Saccharomyces boulardii [Florastor] 250 mg PO BID #14 cap 01/14/21 benzonatate [Tessalon Perles] 100 mg PO BID PRN #10 cap 01/14/21 doxycycline hyclate 100 mg PO BID #14 cap 01/14/21 Previous Rx's Medication Instructions Recorded bisacodyl 5 mg tablet,delayed 5 mg PO ONCE #4 tab 12/30/20 release polyethylene glycol 3350 17 17 g PO ONCE #238 g 12/30/20 gram/dose oral powder Combivent Respimat 1 puff INHALATION Q6H #4 g 01/14/21 Saccharomyces boulardii [Florastor] 250 mg PO BID #14 cap 01/14/21 benzonatate [Tessalon Perles] 100 mg PO BID PRN #10 cap 01/14/21 doxycycline hyclate 100 mg PO BID #14 cap 01/14/21 Allergies Allergy/AdvReac Type Severity Reaction Status Date / Time estrogens, conjugated Allergy Severe Anaphylaxis Verified 01/17/21 11:42 [From Prempro] medroxyprogesterone Allergy Severe Anaphylaxis Verified 01/17/21 11:42 [From Prempro] oxybutynin Allergy Severe Anaphylaxis Verified 01/17/21 11:42 General Stated Complaint: SOB GAEL: 2 Review of Systems Constitutional Constitutional: Reports as per HPI and Denies headache(s) Eyes Eyes: Reports as per HPI, Denies eye discharge and Denies irritation ENT Ears, Nose, Mouth, and Throat: Reports as per HPI and Denies headache(s) Cardiovascular Cardiovascular: Reports as per HPI, Denies chest pain and Denies dyspnea Respiratory Respiratory: Reports as per HPI and Denies dyspnea Gastrointestinal Gastrointestinal: Reports as per HPI, Denies abdominal pain, Denies change in bowel habits, Denies nausea and Denies vomiting Integumentary/Breasts Skin/Breast: Reports as per HPI and Denies rash Neurologic Neurologic: Reports as per HPI and Denies headache(s) [facility] Medical History Crushing injury of left hand Pharyngitis Social History Smoking/Tobacco Use Status: Former Tobacco Use Smoking risk assessment performed?: Yes Alcohol Intake: current Alcohol Intake frequency: a few times a week Alcohol type: beer Drug use: Never Substance use type: does not use Do you feel safe at home: Yes Do you feel safe in your relationship?: Yes Exam Const General: cooperative, healthy appearing, comfortable, no acute distress, well developed and well groomed Nutritional Appearance: average body habitus and well nourished Orientation: alert and awake [facility] Head: normal to inspection, normocephalic and atraumatic Ears: hearing grossly normal bilaterally, external ears normal and TM's normal bilaterally General nose exam: external nose normal and nares normal Face and sinus: normal facial exam, sinuses nontender and face symmetric Mouth: oral mucosae normal, lip normal, tongue normal, oropharynx normal and moist mucous membranes Teeth and gingiva: dentition normal Throat: posterior oropharynx normal, tonsils normal and uvula midline Eyes General: appearance normal, both eyes and all related structures Neck Neck: normal visual inspection, full ROM and no lymphadenopathy Resp Effort & Inspection: normal respiratory effort, able to speak in complete sentences and no respiratory distress Auscultation: clear to auscultation bilaterally, no rales, no rhonchi and no wheezes Cardio Rate: regular rate Rhythm: regular rhythm Heart Sounds: S1 normal and S2 normal Skin General skin exam: no rashes or lesions noted Neuro General: patient alert and patient awake Cognition: normal cognition Speech: speech normal Gait: normal gait Extrem General: normal to inspection, capillary refill normal, no pedal edema and no calf tenderness Psych Appearance: grossly normal and well kempt Mental Status: mental status grossly normal Speech and Movement: speech and movement normal Course Vital Signs Vital signs: Vital Signs Temperature 36.8 C 01/17/21 11:36 Pulse 86 01/17/21 11:36 Respiratory Rate 26 H 01/17/21 11:36 Blood Pressure 152/68 H 01/17/21 11:36 Pulse Oximetry 100 01/17/21 11:36 Temperature 36.8 C 01/17/21 11:36 Temperature Source Oral 01/17/21 11:36 Pulse 86 01/17/21 11:36 Respiratory Rate 26 H 01/17/21 11:36 Blood Pressure 152/68 H 01/17/21 11:36 Pulse Oximetry 100 01/17/21 11:36 Oxygen Delivery Method Room Air 01/17/21 11:36 Oxygen Flow Rate 0 01/17/21 11:36 Pain Level 6 01/17/21 11:36
[2021-01-17 12:32] VITALS: BP 152/68; PULSE 86; RESP 26; TEMP 36.8; O2SAT 100
== END 2021-01-17 12:30 | disposition home or self-care (01) ==
PROVIDERS: Emergency Provider Physician Assistant; PCP Internal Medicine
DX: J06.9 Acute upper respiratory infection, unspecified (principal); R06.02 Shortness of breath
CPT/HCPCS: 93005; 99283; 93010; 99282

== ENCOUNTER 2021-01-25 10:30 | Outpatient (CLI) | payer MEDICAID, SELFPAY ==
[2021-01-25 13:03] LABS: ALT 29 U/L (14-59); AST 17 U/L (15-37); Albumin 3.6 g/dL (3.4-5.0); Alkaline Phosphatase 80 U/L (46-116); Anion Gap 8.7 mmol/L (3-11); BUN 11 mg/dL (7-18); Bilirubin, Total 0.6 mg/dL (0.2-1.0); CO2 30.3 mmol/L (21.0-32.0); CREATININE 0.9 mg/dL (0.55-1.02); Calcium 8.7 mg/dL (8.5-10.1); Calculated LDL 110 mg/dL (<100); Chloride 105 mmol/L (98-107); Cholesterol 203 mg/dL (<200); Glucose 88 mg/dL (74-106); HDL Cholesterol 55 mg/dL (40-60); Potassium 4.2 mmol/L (3.5-5.1); Sodium 144 mmol/L (136-145); Total Protein 6.8 g/dL (6.4-8.2); Triglyceride 191 mg/dL (<150)
== END 2021-01-25 10:31 | disposition home or self-care (01) ==
LOC: LOS 10:30
PROVIDERS: PCP Internal Medicine; Visit Provider Internal Medicine
DX: I10 Essential (primary) hypertension (principal); E78.5 Hyperlipidemia, unspecified
CPT/HCPCS: 36415; 80053; 80061

== ENCOUNTER 2021-02-11 00:27 | Outpatient (CLI) | payer MEDICAID, SELFPAY ==
--- NOTE | 2021-02-11 09:21 | DI.CT_ITS ---
Exam(s) CT CHEST WO EXAM: CT CHEST WO CLINICAL HISTORY: COPD J44.9 TECHNIQUE: Imaging Protocol: Axial computed tomography images with coronal and sagittal reformatted images were created and reviewed COMPARISON: CT CT CHEST LOW DOSE CA SCREENING from 08/16/2020 FINDINGS: Tracheobronchial tree: Patent where visualized. Pulmonary parenchyma: No consolidation or dominant measurable mass. Mild centrilobular emphysema is p resent. Lung Nodules: There is a stable to 3 mm nodule in the right upper lobe. (Series 7, image 78). There is a stable 3 mm nodule in the right upper lobe. (Series 7, image 286). The left lower lobe pulmon priya nodular opacity has resolved. Mediastinum and Lynn: No dominant adenopathy or fluid collection. The esophagus is unremarkable. Thyroid gland: There is a stable multinodular thyroid gland. One of the nodules measures 1.1 cm and contains calcifications. Thyroid ultrasound may be obtained for further evaluation. Pleura: No effusion or pneumothorax. Heart: The heart is not dilated. Coronary artery calcification is present. No pericardial effusion. Aorta: Thoracic aorta non-dilated.Atherosclerosis. Upper abdomen: There is diverticulosis of the colon. No evidence of acute diverticulitis. There is a 3 x 2.2 cm hypodense mass in the posterior segment of the right lobe of the liver. Soft Tissues: Unremarkable. Bones: Within normal limits. IMPRESSION: 1. Resolution of the left lower lobe nodular opacity. This may represent a resolved infiltrate. 2. Stable pulmonary nodules. 3. 3 x 2.2 cm hypodense lesion in the posterior segment of the right lobe of the liver. CT or MRI of the abdomen is recommended for further evaluation. 4. Multinodular thyroid gland. Nonemergent thyroid ultrasound may be considered for further evaluati on. Category Lung-RADS 1.0 CATEGORIES: Category 0 - Prior chest CT exam(s) being located for comparison. Category 1 - Annual screening in 12 months. No nodules or definitely benign nodules. Category 2 - Annual screening in 12 months. Benign appearance. Nodules with low likelihood of becomin g active cancer. Category 3 - 6-month follow-up. Probably benign. Short-term follow-up suggested. Nodules with low lik elihood of becoming active cancer. Category 4A - 3-month follow-up and CT/PET if >8 mm in size. Suspicious finding. Findings which requi re additional testing. Category 4B - Findings which require additional testing and tissue sampling. Suspicious finding. Modifier S- Potentially clinically significant finding. (Non lung cancer) RADIATION DOSE DELIVERED: 473.52mGy.cm Total DLP 11.7mGy CTDIvol 473.52mGy.cm Total DLP DATA REPOSITORY: All CT scans at this facility are submitted to the National Radiology Data Registry (NRDR) Dose Index Registry (DIR) with the [employer] (A[employer]). RADIATION OPTIMIZATION: All CT scans at this facility use at least one of these dose optimization te chniques: automated exposure control; mA and/or kV adjustment per patient size (includes targeted exa ms where dose is matched to clinical indication); or iterative reconstruction.
== END 2021-02-11 00:47 ==
PROVIDERS: PCP Internal Medicine; Visit Provider Internal Medicine
DX: J44.9 Chronic obstructive pulmonary disease, unspecified (principal); R91.1 Solitary pulmonary nodule; K76.9 Liver disease, unspecified; E04.2 Nontoxic multinodular goiter
CPT/HCPCS: 71250

== ENCOUNTER 2021-02-18 01:00 | Outpatient (CLI) | payer MEDICAID, SELFPAY ==
[2021-02-18 10:55] LABS: Source Nasal/Nares
[2021-02-18 19:09] LABS: COVID-19 PCR Negative (Negative)
== END 2021-02-18 01:01 | disposition home or self-care (01) ==
LOC: LBO 01:00
PROVIDERS: PCP Internal Medicine; Visit Provider Surgery
DX: Z20.822 Contact with and (suspected) exposure to COVID-19 (principal); Z01.818 Encounter for other preprocedural examination
CPT/HCPCS: 87635

== ENCOUNTER 2021-02-21 06:07 | Day surgery (SDC) | payer MEDICAID, SELFPAY ==
--- NOTE | 2021-02-21 06:14 | W.ANESPRE ---
General Info Date of Service Date Performed: 02/21/21 Height: 5 ft 3 in Weight: 66.9 kg Body Mass Index (BMI): 26.1 Surgical Procedure: Operation Date: 02/21/21 07:35 Proposed Procedures Side Surgeon p Colonoscopy Lainey Parker MD Meds Allergies and Home Medications Allergies Allergy/AdvReac Type Severity Reaction Status Date / Time estrogens, conjugated Allergy Severe Anaphylaxis Verified 02/21/21 06:17 [From Prempro] medroxyprogesterone Allergy Severe Anaphylaxis Verified 02/21/21 06:17 [From Prempro] oxybutynin Allergy Severe Anaphylaxis Verified 02/21/21 06:17 Home Medication Medication Instructions Recorded albuterol sulfate 90 mcg/actuation 1 inh INHALATION ONCE 08/12/20 aerosol inhaler diazepam 10 mg tablet 2.5 mg PO QHS PRN tab 08/12/20 fluticasone fur. 100 mcg-umeclid 1 inh INHALATION DAILY 08/12/20 62.5 mcg-vilant 25 mcg inhalat.powder omeprazole 40 mg capsule,delayed 40 mg PO DAILY 08/12/20 release atorvastatin 10 mg tablet 20 mg PO DAILY tab 12/23/20 fluticasone propionate 50 2 spray INTRANASAL DAILY 01/26/21 mcg/actuation nasal spray,suspension ibuprofen 600 mg tablet 600 mg PO TID 01/26/21 Current Visit Medications: Current Medications Generic Name Dose Route Start Last Admin Trade Name Freq PRN Reason Stop Dose Admin Ringer's Solution 1,000 mls @ 80 mls/hr 02/21/21 06:00 IV 03/20/21 23:59 INFUSION MINA IV Miscellaneous Supplies 1 each 02/21/21 06:00 Iv Access IV 03/20/21 23:59 DIRECTED MINA Sodium Chloride 0 ml 02/21/21 06:00 Normal Saline Flush 10 Ml Syr IV 03/20/21 23:59 PRN PRN Sodium Chloride 0 ml 02/21/21 06:00 Normal Saline 10 Ml Vial IJ 03/20/21 23:59 DIRECTED PRN Sterile Water 0 ml 02/21/21 06:00 Water,Injection,Sterile 10 Ml Vial IJ 03/20/21 23:59 DIRECTED PRN PFSH Active Problems Active Problems: Problem Status Onset Code Screening for colon cancer Z12.11 Candidiasis B37.9 History of adenomatous polyp of colon Z86.010 Vitamin D deficiency E55.9 Hyperlipidemia E78.5 Mixed anxiety and depressive disorder F41.8 Nicotine dependence F17.200 Hypertensive disorder I10 Chronic tracheobronchitis J42 Asthma J45.909 COPD (chronic obstructive pulmonary disease) J44.9 GERD (gastroesophageal reflux disease) K21.9 Polyphagia R63.2 Dyspnea R06.00 Head injury S09.90XA Laceration of scalp S01.01XA Encounter for removal of marlin Z48.02 Lipoma D17.9 Nodule of left lung R91.1 Periapical abscess without sinus tract K04.7 Lumbosacral radiculopathy M54.17 URI (upper respiratory infection) J06.9 Bronchitis J40 Medical History Medical History (Updated 02/21/21 @ 06:30 by Lainey Parker MD) Asthma Chronic tracheobronchitis COPD (chronic obstructive pulmonary disease) Crushing injury of left hand GERD (gastroesophageal reflux disease) History of adenomatous polyp of colon Hyperlipidemia Hypertensive disorder Lipoma Lumbosacral radiculopathy Mixed anxiety and depressive disorder Nicotine dependence Nodule of left lung Pharyngitis Polyphagia Vitamin D deficiency Surgical History Surgical History Hx of section Status post cardiac surgery 06/20/2016-Pt. denies this Tobacco Smoking/Tobacco Use Status: Former Tobacco Use Alcohol Alcohol Intake: current Alcohol intake frequency: a few times a week Alcohol type: beer Substance Use Substance use: Never Substance use type: does not use Vital Signs and Lab Results Vital Signs Most Recent Vital Signs in EMR: Temp Pulse Resp BP Pulse Ox 36.1 C L 84 16 138/76 99 02/21/21 06:24 02/21/21 06:24 02/21/21 06:24 02/21/21 06:24 02/21/21 06:24 Lab Results Blood Type / Crossmatch: No Data to Display Complete Blood Count: No Data to Display Complete Metabolic Panel: Sodium Level 144 mmol/L (136-145) 01/25/21 09:47 01/25/21 Potassium Level 4.2 mmol/L (3.5-5.1) 01/25/21 09:47 01/25/21 Chloride Level 105 mmol/L (98-107) 01/25/21 09:47 01/25/21 Carbon Dioxide Level 30.3 mmol/L (21.0-32.0) 01/25/21 09:47 01/25/21 Blood Urea Nitrogen 11 mg/dL (7-18) 01/25/21 09:47 01/25/21 Creatinine 0.9 mg/dL (0.55-1.02) 01/25/21 09:47 01/25/21 Estimated GFR/1.73 m2 >= 60.00 (mL/min/1.73m2) 01/25/21 09:47 01/25/21 Calcium Level 8.7 mg/dL (8.5-10.1) 01/25/21 09:47 01/25/21 Albumin 3.6 g/dL (3.4-5.0) 01/25/21 09:47 01/25/21 Glucose Level 88 mg/dL (74-106) 01/25/21 09:47 01/25/21 Liver Function Panel: Alanine Aminotransferase (ALT/SGPT) 29 U/L (14-59) 01/25/21 09:47 01/25/21 Aspartate Amino Transf (AST/SGOT) 17 U/L (15-37) 01/25/21 09:47 01/25/21 Coagulation Panel: No Data to Display Cardiac Panel: No Data to Display Arterial Blood Gas: No Data to Display Venous Blood Gas: No Data to Display Pancreas Panel: No Data to Display Thyroid Panel: No Data to Display Infectious Disease: Coronavirus (COVID-19)(PCR) Negative (Negative) 02/18/21 09:54 02/18/21 Coronavirus 2019 Source Nasal/Nares 02/18/21 09:54 02/18/21 Blood Cultures: No Data to Display Toxicology Panel: No Data to Display Imaging and Studies Imaging and Studies Study information below may be from another EMR and interpreted by another provider. Please see original notes in EMR for more complete details. EKG Summary: 01/2021: sinus rhythm. Anesthesia Assessment and Plan Anesthesia History Personal History: No History of Anesthesia Complications Family History: No Family History of Anesthesia Complications Exercise Tolerance Exercise Tolerance: Metabolic Equivalents>4 Cardiac & Pulmonary Exam Cardiac Exam: Normal S1/S2 Heart Sounds Pulmonary Exam: Clear Bilateral Breath Sounds Implantable Cardiac Device Does patient have a Pacemaker or an ICD?: No Airway Exam Known Difficult Airway: No Mallampati Class: 3 Mouth Opening: Normal (> 3cm) Thyromental Distance: Greater than 3 cm Neck Range of Motion: Full ROM Neck Circumference: Normal Teeth Condition: Normal Dentition ASA Classification ASA Score: ASA 2 Emergency Case?: No NPO Status NPO Status: NPO Clears >2 hours, Solids >8 hours Anesthesia Plan Resuscitation Status: Full Code Anesthesia Technique: General Anesthesia Airway Planned: Natural Airway Monitors Used: Standard Monitors Preoperative Comments:: 65 yo female for colonoscopy. last screening 2013 with polyps. Sig PMHx: HTN (HCTZ), GERD (omep), asthma/COPD (fluticasone/umeclid/albut).
[2021-02-21 06:24] VITALS: BP 138/76; PULSE 84; RESP 16; TEMP 36.1; O2SAT 99
--- NOTE | 2021-02-21 06:28 | HPE_ITS ---
Date of service: 02/21/21 Time of Service: 06:28 Assessment and Plan Assessment and plan (1) Screening for colon cancer: Status: Acute Assessment and plan: The patient is here for Colonoscopy pre-op. Her last screening was in 2013, which was remarkable for large adenomatous polyp. She has no family history of colon cancer. She has not had any bowel habit changes. -Discussed colonoscopy bowel prep as well as the procedure. Discussed possible complications of the procedure to include bleeding, pain, perforation, missed small lesion/polyp, sore throat, aspiration and adverse reaction to the medica tions. Questions were answered to patient?s satisfaction. No guarantees were implied or given. P// Colonoscopy under sedation. (2) History of adenomatous polyp of colon: History of Present Illness Narrative: 65 y/o female with history of HTN, GERD, asthma, COPD and hyperlipidemia presents for colonoscopy screening pre-op. Her last screening was in 2013, which was remarkable for large adenomatous polyp. She denies a family history of colon cancer. She denies any changes in bowel habits including bloody or black tarry stools, abdominal pain, diarrhea or constipation. She denies constitutional symptoms. Denies use of marijuana or any other recreational or illegal drugs. She denies chest pain, palpitations, dyspnea or dyspnea with exertion. Patient reports walking 1/2 mile, a few times per week. She denies prior history or family history of adverse reactions or complications with anesthesia. The patient denies any history of stroke, NM, seizures, bleeding or clotting disorders. She denies having any implanted metal in her body. No changes in her health since she was seen in December Review of Systems Constitutional Constitutional: Denies fever(s) ENT Ears, Nose, Mouth, and Throat: Denies dysphagia and Denies hoarseness Cardiovascular Cardiovascular: Denies chest pain, Denies chest pain at rest, Denies irregular heart rhythm, Denies dyspnea and Denies dyspnea on exertion Respiratory Respiratory: Denies cough, Denies dyspnea and Denies dyspnea on exertion Gastrointestinal Gastrointestinal: Reports as per HPI and Denies dysphagia Genitourinary Genitourinary: Denies dysuria, Denies urinary incontinence and Denies urinary urgency Endocrine Endocrine: Reports system reviewed and no additional complaints, except as documented Hematologic/Lymphatic Hematologic/Lymphatic: Denies easy bruising and Denies lymphadenopathy PFSH All Active Problems (Updated 02/21/21 @ 06:30 by Lainey Parker MD) Screening for colon cancer (Acute) Candidiasis (Acute) Dyspnea (Acute) Head injury (Acute) Laceration of scalp (Acute) Encounter for removal of marlin (Acute) Periapical abscess without sinus tract (Acute) URI (upper respiratory infection) (Acute) Bronchitis (Acute) Medical History (Updated 02/21/21 @ 06:30 by Lainey Parker MD) Asthma Chronic tracheobronchitis COPD (chronic obstructive pulmonary disease) Crushing injury of left hand GERD (gastroesophageal reflux disease) History of adenomatous polyp of colon Hyperlipidemia Hypertensive disorder Lipoma Lumbosacral radiculopathy Mixed anxiety and depressive disorder Nicotine dependence Nodule of left lung Pharyngitis Polyphagia Vitamin D deficiency Surgical History Hx of section Status post cardiac surgery 06/20/2016-Pt. denies this Family History Mother Hypertension Diabetes Father Alzheimer disease Parkinson disease Maternal Grandfather Heart disease Maternal Grandmother Heart disease Social History Smoking/Tobacco Use Status: Former Tobacco Use Quit Date: 03/12/18 Smoking risk assessment performed?: Yes Alcohol Intake: current Alcohol Intake frequency: a few times a week Alcohol type: beer Drug use: Never Substance use type: does not use Do you feel safe at home: Yes Additional Social history: lives alone Meds Allergies and Home Medications Allergies Allergy/AdvReac Type Severity Reaction Status Date / Time estrogens, conjugated Allergy Severe Anaphylaxis Verified 02/21/21 06:17 [From Prempro] medroxyprogesterone Allergy Severe Anaphylaxis Verified 02/21/21 06:17 [From Prempro] oxybutynin Allergy Severe Anaphylaxis Verified 02/21/21 06:17 Home Medications Medication Instructions Recorded Confirmed Type albuterol sulfate 90 mcg/actuation 1 inh INHALATION ONCE 08/12/20 02/17/21 History aerosol inhaler diazepam 10 mg tablet 2.5 mg PO QHS PRN tab 08/12/20 02/21/21 History fluticasone fur. 100 mcg-umeclid 1 inh INHALATION DAILY 08/12/20 02/21/21 History 62.5 mcg-vilant 25 mcg inhalat.powder omeprazole 40 mg capsule,delayed 40 mg PO DAILY 08/12/20 02/21/21 History release atorvastatin 10 mg tablet 20 mg PO DAILY tab 12/23/20 02/21/21 History fluticasone propionate 50 2 spray INTRANASAL DAILY 01/26/21 02/17/21 History mcg/actuation nasal spray,suspension ibuprofen 600 mg tablet 600 mg PO TID 01/26/21 02/21/21 History Exam Const General: healthy appearing and comfortable Resp Effort & Inspection: normal respiratory effort Auscultation: clear to auscultation bilaterally Cardio Rate: regular rate Rhythm: regular rhythm Heart Sounds: no click, no gallops and no murmurs
--- NOTE | 2021-02-21 06:31 | W.COLOREPORT ---
Colonoscopy Report Date of procedure: 02/21/21 Pre-op diagnosis general: Hx of colon polyps, screening Post-op diagnosis procedure note: same Procedure: Flexible sigmoidoscopy Surgeon: Lainey Parker Anesthesia Type: General:No Airway (Cheko Putnam CRNA) Estimated blood loss (mL): 0 Pathology: none sent Complications: None Disposition: same day Indications: The patient is here for Colonoscopy pre-op. Her last screening was in 2013, which was remarkable for large adenomatous polyp. She has no family history of colon cancer. She has not had any bowel habit changes. -Discussed colonoscopy bowel prep as well as the procedure. Discussed possible complications of the procedure to include bleeding, pain, perforation, missed small lesion/polyp, sore throat, aspiration and adverse reaction to the medications. Questions were answered to patient?s satisfaction. No guarantees were implied or given. Prep: Miralax/Dulcolax Findings: Unable to complete the colonoscopy due to a 90 degree corner at the proximal sigmoid colon. Attempted to get around the corner for 3-4 minutes without success. Aborted the procedure as I was afraid to perforate if I continued to try Procedure Description: After informed consent was obtained the patient was taken to the procedure room and placed in a left decubitous position. Monitors were applied and a time out was done. The patients name, date of , procedure, allergies to medications and metal in their body was reviewed. The patient was then sedated. Once sedated and comfortable a rectal exam was done. External exam was normal. Internal exam revealed a normal sphincter tone and no palpable masses. The scope was then introduced and retro-flexed. No internal hemorrhoids, polyps or masses were identified on retro-flexion. The scope was then advanced to the proximal sigmoid colon were there was a very tight corner. The scope would not easily go around the corner. Her hips were opened to try and open the corner but the scope still would not pass without having to push and at that point I was afraid to perforate so the procedure was terminated. The scope was removed and the patient was woken up and taken back to Same day surgery in stable condition. The patient tolerated the procedure well and there were no immediate complications. Follow up: Will try to bring the patient back in 6 months and try again
--- NOTE | 2021-02-21 06:39 | PDOC.DSDIS_ITS ---
Discharge Plan Disposition Patient Disposition: HOME Condition: Good Discharge Details Reason For Visit: Colonoscopy Attending Provider: Lainey Parker Primary Care Provider: Lalita Molina Home Meds and New Rx's Prescriptions: Continued diazepam 10 mg tablet 2.5 mg PO QHS PRNRF: 0 omeprazole 40 mg capsule,delayed release(DR/EC) 40 mg PO DAILY RF: 0 albuterol sulfate [ProAir HFA] 90 mcg/actuation HFA aerosol inhaler 1 inh inhalation ONCE RF: 0 Trelegy Ellipta 100-62.5-25 mcg blister with device 1 inh inhalation DAILY RF: 0 atorvastatin 10 mg tablet 20 mg PO DAILY RF: 0 fluticasone propionate [Allergy Relief (fluticasone)] 50 mcg/actuation spray, suspension 2 spray intranasal DAILY RF: 0 ibuprofen 600 mg tablet 600 mg PO TID RF: 0 Discharge Instructions Additional Instructions: Findings: Unable to pass the scope around a corner. Follow up: 6 months for another attempt Please call if you develop: fevers >101.5 Nausea or Vomiting Abdominal pain that is not transient Rectal bleeding that is more then a tbsp A hard abdomen and inability to pass gas DAY SURGERY UNIT POST ENDOSCOPY INSTRUCTIONS Instructions for everyone who is given Anesthesia: For your safety, please do the following for the next 24 Hours: a. Do not drive or operate dangerous equipment b. Do not drink alcohol beverages or use any recreational drugs for the first 24 hours or while taking pain medications. The medications in your body may have a reaction that can be dangerous. c. Do not make any important decisions or sign any important papers 1. Generally there are no restrictions on your activity after a day or so has gone by, but you may feel a bit fatigued for a few days. 2. After you arrive home you may have a light meal and return to a normal diet as you can tolerate it without feeling sick to your stomach. 3. After surgery, you may feel pain or discomfort. This should be only transient, but if it persists please contact your doctor. 4. If there are any questions regarding the findings of your procedure, please feel free to contact your doctor. 6. If you are unable to contact your doctor with a problem, contact the hospital at [phone]. 7. Continue all your regular medications unless directed otherwise. I understand the above instructions and have no questions. Signature of Patient or Responsible Adult Escort Date/Time Name of Responsible Adult Escort Signature of Nurse Date/Time Activity:: Activity as Tolerated Diet:: As Tolerated Discharge Orders Discharge Orders: Discharge Order (Routine); Ordered 02/21/21 Ordered By: Lainey Parker DS: Diagnosis Discharge Diagnosis (1) Screening for colon cancer: Status: Acute (2) History of adenomatous polyp of colon:
[2021-02-21] MEDS: Lactated Ringers 1,000 ML 80 ML IV (06:44)
[2021-02-21 06:59] VITALS: BMI 26.1
[2021-02-21 07:40] VITALS: BP 134/86; PULSE 76; RESP 16; TEMP 36.3; O2SAT 97
--- NOTE | 2021-02-21 07:52 | W.ANESPOSTOP ---
Postoperative Evaluation Date, Time and Location Date Performed: 02/21/21 Time Performed: 07:52 Patient Location: Day Surgery Unit Vital Signs Most Recent Imported Vital Signs: Most Recent Vital Signs Temp Pulse Resp BP Pulse Ox 36.3 C L 76 16 134/86 97 02/21/21 07:40 02/21/21 07:40 02/21/21 07:40 02/21/21 07:40 02/21/21 07:40 Pain Score Most Recent Pain Score: Most Recent Pain Score Pain Level 0 02/21/21 07:40 Assessment Mental Status: Awake (Alert & Oriented to Patient Baseline) Airway and Respiratory Function: Patent airway with normal (patient baseline) respiratory exam Cardiovascular Function: Hemodynamically Stable Hydration Status: Adequately Hydrated Nausea & Vomiting: No Nausea or Vomiting Pain: Pt. Denies Any Pain Peripheral Nerve Block: Patient did not receive a nerve block
[2021-02-21 08:07] VITALS: BP 147/95; PULSE 66; RESP 16; TEMP 36.2; O2SAT 100
== END 2021-02-21 08:35 | disposition home or self-care (01) ==
PROVIDERS: PCP Internal Medicine; Visit Provider Surgery
PROC: 0DJD8ZZ Inspection of Lower Intestinal Tract, Via Natural or Artificial Opening Endoscopic (ICD-10-PCS; CPT 45378; principal; 2021-02-21 07:30)
DX: Z12.11 Encounter for screening for malignant neoplasm of colon (principal); Z86.010 Personal history of colon polyps
CPT/HCPCS: 45330; J2001

== ENCOUNTER 2021-02-23 00:14 | Outpatient (CLI) | payer MEDICAID, SELFPAY ==
--- NOTE | 2021-02-23 09:15 | DI.MRI_ITS ---
Exam(s) MR ABDOMEN WO/W EXAM: MR ABDOMEN WO/W CLINICAL HISTORY: LESION OF LIVER K76.9 LIVER DISEASE, LESION IN POSTERIOR SEGMENT RT LOBE TECHNIQUE: Multiplanar multisequence MRI was performed with both pre and post contrast infused seque nces. Contrast injected sequences were performed following IV injection of cc of Dotarem. COMPARISON: CT CT CHEST WO from 02/11/2021 was reviewed FINDINGS: VISUALIZED LUNG BASES: No pleural effusions evident. There is no ascites evident. LIVER: Liver size normal. There is a solitary hepatic lesion in right lobe which is subcapsular in c orresponds to the finding described on the recent chest CT scan. This is well-defined, lobulated, T2 -2 uniformly bright and measures 2.5 cm AP by 2 cm maximum with by 2.2 cm craniocaudal. Following co ntrast injection this lesion exhibits typical centripetal enhancement seen with cavernous hemangioma. No other enhancing lesions in the liver. A tiny nonenhancing cyst measuring 2 millimeters is seen just above this hemangioma. BILIARY: There is no obvious gallbladder pathology. The CBD is not dilated. PANCREAS: There is a tiny 2 millimeters cyst in the anterior aspect of the pancreas at the junction o f the body and tail. In addition, there is another slightly larger 4 millimeter cyst in the anterior aspect of the tail the pancreas. SPLEEN: Spleen is not enlarged and there are no intrasplenic lesions.Splenic and portal veins are pat ent ADRENALS: There are no significant adrenal masses. KIDNEYS: No solid renal masses. No hydronephrosis.No cysts evident. ABDOMINAL AORTA: Not enlarged and there is no significant para-aortic adenopathy. ANTERIOR ABDOMINAL WALL/GI: There is no evidence of significant anterior abdominal wall hernia in the field of view of this study.Is no evidence of obvious bowel obstruction. OSSEOUS: There are no lytic osseous lesions in the field of view of this study. IMPRESSION: 1. There is a 2.5 x 2.0 x 2.2 cm subcapsular lesion in the right hepatic lobe corresponding to the fi nding described on recent chest CT scan. On MRI this has the appearance and enhancement characterist ics of a benign cavernous hemangioma. Adjacent to it is a tiny 2 millimeters benign cyst. No other significant focal hepatic findings. 2. Incidentally noted are 2 tiny cysts in the pancreas. One measures 2 millimeters and the other adrian sures 4 millimeters, these located at the junction of the body and tail and in the anterior aspect of the tail, respectively. Recommend repeat MRI in 6 months to ensure stability of these pancreatic fi ndings. DATA REPOSITORY:
[2021-02-23] MEDS: Gadoterate meglumine 20 ML VIAL 12 ML IVP (09:55)
== END 2021-02-23 00:34 ==
PROVIDERS: PCP Internal Medicine; Visit Provider Internal Medicine
DX: K76.89 Other specified diseases of liver (principal); D18.03 Hemangioma of intra-abdominal structures; K86.2 Cyst of pancreas
CPT/HCPCS: 74183

== ENCOUNTER 2021-03-08 01:29 | Outpatient (CLI) | payer MEDICAID, SELFPAY ==
--- NOTE | 2021-03-08 11:00 | DI.US_ITS ---
Exam(s) US THYROID EXAM: US THYROID CLINICAL HISTORY: NONTOXIC MULTINODULAR GOITER, E04.2, modified to protocol-BP TECHNIQUE: Ultrasound performed using standard protocol. COMPARISON: No exams were available for comparison FINDINGS: Thyroid ultrasound was performed according to the usual protocol. There are numerous bilateral thyro id nodules. Right thyroid lobe measures 4.8 x 2.3 x 2.0 cm and left thyroid lobe measures 5.1 x 2.0 x 1.7 cm. There is a 19 x 12 x 7 millimeter in diameter solid nodule of the superior pole of the right thyroid lobe which is isoechoic, wider than tall, and has smooth margins. This appears to contain punctate f oci. This is a TR 4 lesion by TI-RADS calcification and biopsy is recommended since this is greater than 1.5 cm in diameter. No additional lesions are identified which qualify for biopsy. A 6 millimeter in diameter TR 5 lesio n located in the upper pole of the right thyroid lobe may be followed with repeat ultrasound in 6 mon ths. IMPRESSION: Multinodular appearance of the thyroid gland. Biopsy recommended for suspicious nodule of upper arnaldo e of the right thyroid lobe as described above. DATA REPOSITORY:
== END 2021-03-08 01:49 ==
PROVIDERS: PCP Internal Medicine; Visit Provider Internal Medicine
DX: E04.2 Nontoxic multinodular goiter (principal)
CPT/HCPCS: 76536

== ENCOUNTER 2021-07-13 00:38 | Outpatient (CLI) | payer MEDICAID, SELFPAY ==
--- NOTE | 2021-07-13 | DI.MRI_ITS ---
Exam(s) MR ABDOMEN WO/W EXAM: MR ABDOMEN WO/W CLINICAL HISTORY: PANCREATIC LESION, K86.9 TECHNIQUE: Multiplanar multisequence MRI of the Abdomen was performed. Contrast: 13 milliliters Dotarem IV. COMPARISON: MR MR ABDOMEN WO/W from 02/23/2021 FINDINGS: No change in size or appearance of the previously noted high signal lesion in the lateral right lobe of the liver, consistent with a hemangioma. Tiny cyst seen superior to this level. No pancreatic cysts are visible. No significant pancreatic abnormality. Gallbladder, spleen, adrena ls and kidneys as well as spine are unremarkable. No pleural or pericardial effusions are seen at th e lung bases. Diverticulosis noted in scattered through visualized portions of the colon. Aorta nor mal in diameter. IMPRESSION: Stable appearance of liver hemangioma. No significant pancreatic abnormality identified. DATA REPOSITORY:
[2021-07-13 08:20] LABS: CREATININE 0.9 mg/dL (0.55-1.02)
[2021-07-13] MEDS: Gadoterate meglumine 20 ML VIAL 13 ML IVP (08:40)
== END 2021-07-13 00:58 ==
PROVIDERS: PCP Nurse Practitioner Family; Visit Provider Nurse Practitioner Family
DX: K86.89 Other specified diseases of pancreas (principal); Z01.812 Encounter for preprocedural laboratory examination; K76.89 Other specified diseases of liver; D18.03 Hemangioma of intra-abdominal structures
CPT/HCPCS: 74183; 82565

== ENCOUNTER 2021-08-17 11:21 | Day surgery (SDC) | payer MEDICAID, SELFPAY ==
--- NOTE | 2021-08-17 06:39 | W.ANESPRE ---
General Info Date of Service Date Performed: 08/17/21 Height: 5 ft 3 in Weight: 64 kg Body Mass Index (BMI): 25.0 Surgical Procedure: Operation Date: 08/17/21 12:50 Proposed Procedure Side Surgeon p Terell Parker MD Meds Allergies and Home Medications Allergies Allergy/AdvReac Type Severity Reaction Status Date / Time estrogens, conjugated Allergy Severe Anaphylaxis Verified 08/17/21 11:35 [From Prempro] medroxyprogesterone Allergy Severe Anaphylaxis Verified 08/17/21 11:35 [From Prempro] oxybutynin Allergy Severe Anaphylaxis Verified 08/17/21 11:35 amoxicillin Allergy Intermediate Diarrhea, Verified 08/17/21 11:35 raw skin Home Medication Medication Instructions Recorded albuterol sulfate 90 mcg/actuation 1 inh inhalation ONCE 08/12/20 aerosol inhaler (ProAir HFA) diazepam 10 mg tablet 2.5 mg PO QHS PRN 08/12/20 fluticasone fur. 100 mcg-umeclid 1 inh inhalation DAILY 08/12/20 62.5 mcg-vilant 25 mcg inhalat.powder (Trelegy Ellipta) omeprazole 40 mg capsule,delayed 40 mg PO DAILY 08/12/20 release atorvastatin 10 mg tablet 20 mg PO DAILY 12/23/20 fluticasone propionate 50 2 spray intranasal DAILY 01/26/21 mcg/actuation nasal spray,suspension (Allergy Relief (fluticasone)) ibuprofen 600 mg tablet 600 mg PO TID 01/26/21 bisacodyl 5 mg tablet,delayed 5 mg PO ONCE #4 tabs 08/12/21 release (Dulcolax (bisacodyl)) polyethylene glycol 3350 17 17 g PO ONCE #238 grams 08/12/21 gram/dose oral powder Current Visit Medications: Current Medications Generic Name Dose Route Start Last Admin Trade Name Freq PRN Reason Stop Dose Admin Ringer's Solution 1,000 mls @ 80 mls/hr 08/17/21 06:00 IV 09/15/21 23:59 [facility] IV Miscellaneous Supplies 1 each 08/17/21 06:00 Iv Access IV 09/15/21 23:59 DIRECTED MINA Sodium Chloride 0 ml 08/17/21 06:00 Normal Saline Flush 10 Ml Syr IV 09/15/21 23:59 PRN PRN Sodium Chloride 0 ml 08/17/21 06:00 Normal Saline 10 Ml Vial IJ 09/15/21 23:59 DIRECTED PRN Sterile Water 0 ml 08/17/21 06:00 Water,Injection,Sterile 10 Ml Vial IJ 09/15/21 23:59 DIRECTED PRN PFSH Active Problems Active Problems: Problem Status Onset Code COPD (chronic obstructive pulmonary disease) J44.9 Screening for colon cancer Z12.11 Dyspnea R06.00 URI (upper respiratory infection) J06.9 Bronchitis J40 Medical History Medical History Asthma Candidiasis Chronic tracheobronchitis COPD (chronic obstructive pulmonary disease) Crushing injury of left hand Encounter for removal of marlin GERD (gastroesophageal reflux disease) Head injury History of adenomatous polyp of colon Hyperlipidemia Hypertensive disorder Laceration of scalp Lipoma Lumbosacral radiculopathy Lung cyst Mixed anxiety and depressive disorder Mixed conductive and sensorineural hearing loss of right ear with restricted hearing of left ear Nicotine dependence Nodule of left lung Periapical abscess without sinus tract Personal history of nicotine dependence Pharyngitis Polyphagia Sensorineural hearing loss, unilateral, left ear, with restricted hearing on the contralateral side Vitamin D deficiency Surgical History Surgical History History of left cataract surgery 06/2020 History of right cataract surgery 06/20/2016 Hx of section Tobacco Smoking/Tobacco Use Status: Former Tobacco Use Alcohol Alcohol Intake: current Alcohol intake frequency: 3 or more drinks per day Alcohol type: beer and other Substance Use Substance use: Never Substance use type: does not use Vital Signs and Lab Results Vital Signs Most Recent Vital Signs in EMR: Temp Pulse Resp BP Pulse Ox 36.2 C L 64 16 132/68 99 08/17/21 11:40 08/17/21 11:40 08/17/21 11:40 08/17/21 11:40 08/17/21 11:40 Lab Results Blood Type / Crossmatch: No Data to Display Complete Blood Count: No Data to Display Complete Metabolic Panel: No Data to Display Liver Function Panel: No Data to Display Coagulation Panel: No Data to Display Cardiac Panel: No Data to Display Arterial Blood Gas: No Data to Display Venous Blood Gas: No Data to Display Pancreas Panel: No Data to Display Thyroid Panel: No Data to Display Infectious Disease: No Data to Display Blood Cultures: No Data to Display Toxicology Panel: No Data to Display Imaging and Studies Imaging and Studies Study information below may be from another EMR and interpreted by another provider. Please see original notes in EMR for more complete details. EKG Summary: 01/2021: sinus rhythm. Anesthesia Assessment and Plan Anesthesia History Personal History: No History of Anesthesia Complications Family History: No Family History of Anesthesia Complications Exercise Tolerance Exercise Tolerance: Metabolic Equivalents>4 Cardiac & Pulmonary Exam Cardiac Exam: Normal S1/S2 Heart Sounds Pulmonary Exam: Clear Bilateral Breath Sounds Implantable Cardiac Device Does patient have a Pacemaker or an ICD?: No Airway Exam Known Difficult Airway: No Mallampati Class: 3 Mouth Opening: Normal (> 3cm) Thyromental Distance: Greater than 3 cm Neck Range of Motion: Full ROM Neck Circumference: Normal Teeth Condition: Normal Dentition ASA Classification ASA Score: ASA 2 Emergency Case?: No NPO Status NPO Status: NPO Clears >2 hours, Solids >8 hours Anesthesia Plan Resuscitation Status: Full Code Anesthesia Technique: General Anesthesia Airway Planned: Natural Airway Monitors Used: Standard Monitors Preoperative Comments:: 65 yo female for colonoscopy. last in 2020 but was incomplete. history of polyps. Sig PMHx: HTN (HCTZ), GERD (omep), asthma/COPD (fluticasone/umeclid/albut), anxiety. Previous Anes: prop/lido for colo without issues.
--- NOTE | 2021-08-17 07:12 | COLE_ITS ---
Colonoscopy Report Date of procedure: 08/17/21 Pre-op diagnosis general: Colon Cancer Screening Post-op diagnosis procedure note: other (colorectal polyps and severe diverticulosis) Procedure: Colonoscopy with polypectomy Surgeon: Lainey Parker Anesthesia Type: General:No Airway Estimated blood loss (mL): 5 Pathology: other (Transverse polyps and sigmoid polyps x3) Complications: None Disposition: same day Indications: The patient is here for Colonoscopy pre-op.?Her last screening was in 02/2021, which was incomplete secondary to a very tight corner.? Recommendation was follow-up in 6 months for repeat colonoscopy to reattempt. ?She has no family history of colon cancer. She has not had any bowel habit changes. -Discussed colonoscopy bowel prep as well as the procedure. Discussed possible complications of the procedure to include bleeding, pain, perforation, missed small lesion/polyp, sore throat, aspiration and adverse reaction to the medications. Questions were answered to patient?s satisfaction. No guarantees were implied or given.? Prep: Miralax/Dulcolax Procedure Start Time: 13:46 Procedure End Time: 14:18 Retraction Time: 16 minutes Findings: several polyps severe diverticulosis Tight corned at 20 cm Procedure Description: After informed consent was obtained the patient was taken to the procedure room and placed in a left decubitous position. Monitors were applied and a time out was done. The patients name, date of , procedure, allergies to medications and metal in their body was reviewed. The patient was then sedated. Once sedated and comfortable a rectal exam was done. External exam was normal. Internal exam revealed a normal sphincter tone and no palpable masses. The scope was then introduced and retro-flexed. No internal hemorrhoids, polyps or masses were identified on retro-flexion. The scope was then advanced to the cecum with difficulty as there was a very tight corner at about 20 cm. The ileocecal vlave and appendiceal orifice were identified. The prep was adequate. The scope was then slowly retracted over 16 minutes back into the rectum. Polyps were removed with cold forceps in the transverse colon x1 and sigmoid colon x3. There was severe reynoso-diverticulosis noted. The scope was removed and the patient was woken up and taken back to Same day surgery in stable condition. The patient tolerated the procedure well and there were no immediate complications. Follow up: Follow up will depend on final pathology unless they develop changes in bowel habits or other new gastrointestinal complaints.
--- NOTE | 2021-08-17 07:13 | PDOC.DSDIS_ITS ---
Discharge Plan Disposition Patient Disposition: HOME Condition: Good Discharge Details Reason For Visit: [place] Attending Provider: Lainey Parker Primary Care Provider: Laura Manuel Home Meds and New Rx's Prescriptions: Continued diazepam 10 mg tablet 2.5 mg PO QHS PRN omeprazole 40 mg capsule,delayed release(DR/EC) 40 mg PO DAILY albuterol sulfate [ProAir HFA] 90 mcg/actuation HFA aerosol inhaler 1 inh inhalation ONCE Trelegy Ellipta 100-62.5-25 mcg blister with device 1 inh inhalation DAILY atorvastatin 10 mg tablet 20 mg PO DAILY fluticasone propionate [Allergy Relief (fluticasone)] 50 mcg/actuation spray,suspension 2 spray intranasal DAILY Rx Instructions: administer into each nostril ibuprofen 600 mg tablet 600 mg PO TID Discontinued bisacodyl [Dulcolax (bisacodyl)] 5 mg tablet,delayed release (DR/EC) 5 mg PO ONCE Qty: 4 0RF Rx Instructions: Take according to provider's instructions for colonoscopy prep. polyethylene glycol 3350 17 gram/dose powder 17 g PO ONCE Qty: 238 0RF Rx Instructions: To be taken as directed by prescriber's office for colonoscopy prep. Discharge Instructions Instructions: Colorectal Polyps (DC), Diverticulosis (DC) Additional Instructions: Findings: 4 polyps severe diverticulosis Follow up: depends on final pathology. You will get a letter in the mail Please call if you develop: fevers >101.5 Nausea or Vomiting Abdominal pain that is not transient Rectal bleeding that is more then a tbsp A hard abdomen and inability to pass gas DAY SURGERY UNIT POST ENDOSCOPY INSTRUCTIONS Instructions for everyone who is given Anesthesia: For your safety, please do the following for the next 24 Hours: a. Do not drive or operate dangerous equipment b. Do not drink alcohol beverages or use any recreational drugs for the first 24 hours or while taking pain medications. The medications in your body may have a reaction that can be dangerous. c. Do not make any important decisions or sign any important papers 1. Generally there are no restrictions on your activity after a day or so has gone by, but you may feel a bit fatigued for a few days. 2. After you arrive home you may have a light meal and return to a normal diet as you can tolerate it without feeling sick to your stomach. 3. After surgery, you may feel pain or discomfort. This should be only transient, but if it persists please contact your doctor. 4. If there are any questions regarding the findings of your procedure, please feel free to contact your doctor. 6. If you are unable to contact your doctor with a problem, contact the hospital at [phone]. 7. Continue all your regular medications unless directed otherwise. I understand the above instructions and have no questions. Signature of Patient or Responsible Adult Escort Date/Time Name of Responsible Adult Escort Signature of Nurse Date/Time Activity:: Activity as Tolerated Diet:: high fiber diet Discharge Orders Discharge Orders: Discharge Order (Routine); Ordered 08/17/21 Ordered By: Lainey Parker
[2021-08-17 11:40] VITALS: BP 132/68; PULSE 64; RESP 16; TEMP 36.2; O2SAT 99
[2021-08-17] MEDS: Lactated Ringers 1,000 ML 80 ML IV (11:59)
[2021-08-17 12:38] VITALS: BMI 25.0
--- NOTE | 2021-08-17 14:06 | BOWEL_PTH ---
PATIENT: Leah Ramirez LOC: [facility] U#:[id number] AGE/SX: 66/F ROOM: RE08/17/[address]: Lainey Parker MD : [id number] BED: DIS: 08/17/2021 SPEC #: [id number] RECD: 08/17/21 17:37 STATUS: ASHA REQ #: [id number] EBONIE: 08/17/21 14:[address]: Lainey Parker DEPT: Surgical Specimen RECD BY: Leatha Flores ENTERED: 08/17/21 17:38 SP TYPE: Bowel OTHR DR: Laura Manuel Tissues: 1 - BIOPSY BOWEL 2 - BIOPSY BOWEL Procedures: GROSS AND MICRO LEVEL 4 Comments: [id number]
[2021-08-17 14:33] VITALS: BP 166/88; PULSE 72; RESP 18; TEMP 36.2; O2SAT 97
[2021-08-17] MEDS: Hyoscyamine 0.125 MG SL/ORAL/CHEW SL ×2 (14:47→15:08)
--- NOTE | 2021-08-17 15:15 | W.ANESPOSTOP ---
Postoperative Evaluation Date, Time and Location Date Performed: 08/17/21 Time Performed: 15:15 Patient Location: Day Surgery Unit Vital Signs Most Recent Imported Vital Signs: Most Recent Vital Signs Temp Pulse Resp BP Pulse Ox 36.2 C L 72 18 166/88 H 97 08/17/21 14:33 08/17/21 14:33 08/17/21 14:33 08/17/21 14:33 08/17/21 14:33 Pain Score Most Recent Pain Score: Most Recent Pain Score Pain Level 0 08/17/21 11:40 Assessment Mental Status: Awake (Alert & Oriented to Patient Baseline) Airway and Respiratory Function: Patent airway with normal (patient baseline) respiratory exam Cardiovascular Function: Hemodynamically Stable Hydration Status: Adequately Hydrated Nausea & Vomiting: No Nausea or Vomiting Pain: Pt. Denies Any Pain Peripheral Nerve Block: Patient did not receive a nerve block
[2021-08-17 15:26] VITALS: BP 179/86; PULSE 75; RESP 35; TEMP 36.2; O2SAT 97
--- NOTE | 2021-08-17 15:30 | DI.RAD_ITS ---
Exam(s) XR ABDOMEN FLAT PLATE EXAM: XR ABDOMEN FLAT PLATE CLINICAL HISTORY: abd pain. TECHNIQUE: 2D digital imaging was performed. COMPARISON: No exams were available for comparison FINDINGS: Single AP supine portable view The entire colon is air-filled and mildly distended. There is no excessive stool content to suggest constipation. There are no prominent dilated small bowel loops. No obvious pneumatosis. Cannot ass ess for free air as there is no upright nor decubitus view. No abnormal calcifications. Visualized lung bases are clear. IMPRESSION: As above. Recommend upright view as the next step. DATA REPOSITORY: RADIATION DOSE DELIVERED:
--- NOTE | 2021-08-17 15:30 | DI.RAD_ITS ---
Exam(s) XR PORTABLE CHEST AP EXAM: XR PORTABLE CHEST AP CLINICAL HISTORY: abd pain. TECHNIQUE: 2D digital imaging was performed. COMPARISON: CR XR CHEST 2V PA LATERAL from 01/14/2021 CR,XR XR ABDOMEN FLAT PLATE from 08/17/2021 FINDINGS: Single AP portable view. Heart size is upper normal. The mediastinum is not widened. Right lung is clear. There is, however, nodular infiltrate in the mid aspect of the left lung measur ing approximately 1.2 cm, not previously present. Follow-up CT scan recommend There are no pleural effusions IMPRESSION: Left lung nodular infiltrate. CT scan recommended to rule out malignancy. First read by [facility] Final report called by myself to ER physician 08/18/2021 7:50 a.m. DATA REPOSITORY: RADIATION DOSE DELIVERED: All CT scans at this facility use at least one of these dose optimization techniques: automated exposure control; mA and/or kV adjustment per patient size (includes targeted e xams where dose is matched to clinical indication); or iterative reconstruction.
[2021-08-17] MEDS: Ketorolac 15 MG/ML VIAL IVP (16:00)
--- NOTE | 2021-08-17 16:00 | W.PM.PROGNOT ---
Date of Service Date of service: 08/17/21 Time of Service: 16:00 Assessment and Plan Assessment and plan (1) Abdominal pain: Status: Acute Assessment and plan: s/p colonoscopy which was difficult. CXR and Badominal XRAY ordered. I looked at it and dont see any free air. He bowel is dilated. Give Toradol and Ativan. If no improvement will admitt patient overnight for observation and pain medication Subjective Subjective Interval history since last seen: Leah is having a lot of cramping abdominal pain. She has not passed a lot of gas yet. She has been given 2 doses of Levsin The pain does come and go. Exam Resp Effort & Inspection: normal respiratory effort GI Inspection: distended Palpation: soft Objective Last Vital Signs Temp 97.2 F L 08/17/21 14:33 Pulse 72 08/17/21 14:33 Resp 18 08/17/21 14:33 BP 166/88 H 08/17/21 14:33 Pulse Ox 97 08/17/21 14:33
[2021-08-17] MEDS: Normal Saline Flush 10 ML SYR IV ×2 (16:01→16:24)
[2021-08-17 16:10] VITALS: BP 175/98; PULSE 83; RESP 26; TEMP 36.4; O2SAT 97
[2021-08-17] MEDS: LORazepam 2 MG/ML VIAL 1 MG IVP (16:24)
[2021-08-17 16:28] VITALS: BP 146/73; PULSE 74; RESP 18; TEMP 36.6; O2SAT 96
[2021-08-17 17:09] VITALS: BP 154/77; PULSE 77; RESP 18; TEMP 36.6; O2SAT 98
--- NOTE | 2021-08-17 21:09 | DI.VRAD_ITS ---
PROCEDURE INFORMATION: Exam: XR Abdomen Exam date and time: 08/17/2021 3:40 PM Age: 66 years old Clinical indication: Abdominal pain; Generalized TECHNIQUE: Imaging protocol: XR of the abdomen. Views: Frontal supine view of the abdomen. 1 View. COMPARISON: MR ABDOMEN WO/W 07/13/2021 8:15 AM FINDINGS: Gastrointestinal tract: Borderline sized, gas distended loops of large bowel throughout the abdomen are nonspecific. No radiographic evidence of excessive stool content. No evidence of dilated loops of small bowel. No air-fluid levels. Bones/joints: Unremarkable. IMPRESSION: Borderline sized, gas distended loops of large bowel throughout the abdomen are nonspecific. No excessive stool content to suggest constipation. Early ileus or obstruction cannot be excluded. Dictated and Authenticated by: Gteachew Jacobson MD. Ordering:KRISTIE Retana MD
--- NOTE | 2021-08-17 21:10 | DI.VRAD_ITS ---
PROCEDURE INFORMATION: Exam: XR Chest Exam date and time: 08/17/2021 3:37 PM Age: 66 years old Clinical indication: Other: Abdominal pain TECHNIQUE: Imaging protocol: XR of the chest. Views: 1 view. COMPARISON: CT CHEST WO 02/11/2021 9:21 AM FINDINGS: Lungs: Unremarkable. No consolidation. Pleural spaces: Unremarkable. No pleural effusion. No pneumothorax. Heart/Mediastinum: Unremarkable. No cardiomegaly. Bones/joints: Unremarkable. IMPRESSION: No acute findings. Dictated and Authenticated by: Getachew Jacobson MD. Ordering:KRISTIE Retana MD
== END 2021-08-17 17:38 | disposition home or self-care (01) ==
PROVIDERS: PCP Nurse Practitioner Family; Visit Provider Surgery
PROC: 0DJD8ZZ Inspection of Lower Intestinal Tract, Via Natural or Artificial Opening Endoscopic (ICD-10-PCS; CPT 45378; principal; 2021-08-17 12:45)
DX: Z12.11 Encounter for screening for malignant neoplasm of colon (principal); K63.5 Polyp of colon; K21.9 Gastro-esophageal reflux disease without esophagitis; K57.30 Diverticulosis of large intestine without perforation or abscess without bleeding; G89.18 Other acute postprocedural pain; R10.9 Unspecified abdominal pain; I10 Essential (primary) hypertension; J44.9 Chronic obstructive pulmonary disease, unspecified; F17.210 Nicotine dependence, cigarettes, uncomplicated
CPT/HCPCS: 45380; 88305; 71045; 74018; J1885; J2060; J2405; J2704; J3490

== ENCOUNTER → 2021-09-02 00:38 | Outpatient (CLI) | payer MEDICAID, SELFPAY ==
--- NOTE | 2021-09-02 07:00 | DI.CT_ITS ---
Exam(s) CT CHEST WO EXAM: CT CHEST WO CLINICAL HISTORY: resent CXR with new lung nodule,r91.1. TECHNIQUE: Imaging protocol: Axial computed tomography images were obtained and coronal and sagittal reformatted images were created and reviewed. COMPARISON: CT CT CHEST WO from 02/11/2021 MR MR ABDOMEN WO/W from 02/23/2021 CR,XR XR PORTABLE CHEST AP from 08/17/2021 FINDINGS: Tracheobronchial tree: Patent where visualized. Pulmonary parenchyma: No focal consolidating infiltrate. There is a 3.2 mm noncalcified pulmonary no dule in the right upper lobe. There is a 2.7 mm noncalcified pulmonary nodule in the left lung apex. These nodules are stable compared to the CT scan of the chest from 02/11/2021. No pulmonary nodule or infiltrate is seen in the left mid lung to correspond to the finding on the chest x-ray. Mild ruben trilobular emphysematous changes are present. Mediastinum and Lynn: No dominant adenopathy or fluid collection. The esophagus is unremarkable. Thyroid gland: There is a 1.6 cm hypodense nodule in the right lobe of the thyroid gland. Smaller no dules are also present. Nonemergent thyroid ultrasound is recommended. Pleura: No effusion or pneumothorax. Heart: The heart is not dilated. Mild coronary artery calcification is present. No pericardial effus ion. Aorta: Thoracic aorta non-dilated. Atherosclerosis is present. Upper abdomen: The hypodense lesion seen in the right lobe of the liver is unchanged. Previous MRI shows this to be a hemangioma. There is diverticulosis seen in the colon but no evidence of acute di verticulitis. Lymph nodes: Within normal limits. Soft tissues: There is again seen a a 6 cm transverse by 5.1 cm AP x 10 cm craniocaudad lipoma in the left axilla. Bones:Within normal limits for the patient's age. IMPRESSION: 1. Stable pulmonary nodules. 2. No pulmonary findings to correspond to the opacity seen on the chest x-ray from 08/17/2021. 3. Mild centrilobular emphysematous changes. 4. 1.6 cm hypodense right thyroid nodule. Nonemergent thyroid ultrasound is recommended. RADIATION DOSE DELIVERED: 457.37mGy.cm Total DLP 457.37mGy.cm Total DLP DATA REPOSITORY: All CT scans at this facility are submitted to the National Radiology Data Registry (NRDR) Dose Index Registry (DIR) with the [employer] (ACR). RADIATION OPTIMIZATION: All CT scans at this facility use at least one of these dose optimization te chniques: automated exposure control; mA and/or kV adjustment per patient size (includes targeted exa ms where dose is matched to clinical indication); or iterative reconstruction.
== END ==
PROVIDERS: PCP Nurse Practitioner Family; Visit Provider Surgery
DX: R91.8 Other nonspecific abnormal finding of lung field (principal); E04.1 Nontoxic single thyroid nodule; J43.2 Centrilobular emphysema
CPT/HCPCS: 71250

== ENCOUNTER 2021-10-18 19:18 | Outpatient (REF) | payer MEDICAID, SELFPAY ==
[2021-10-18 16:14] LABS: HCT 37.6 % (36.0-46.0); HGB 12.5 g/dL (11.2-15.7); MCH 32.7 pg (27.0-33.0); MCHC 33.2 % (32.0-36.0); MCV 98 fL (80-95); MPV 10.6 fL (8.0-11.0); Platelet Count 271 10^3/uL (130-400); RBC 3.82 10^6/uL (3.93-5.22); RDW 13.1 % (11.7-14.6); RDW-SD 46.8 fL; WBC 5.71 10^3/uL (4.4-10.8)
[2021-10-18 16:15] LABS: Anion Gap 9.4 mmol/L (3-11); BUN 15 mg/dL (7-18); CO2 28.6 mmol/L (21.0-32.0); CREATININE 0.9 mg/dL (0.55-1.02); Calcium 8.6 mg/dL (8.5-10.1); Calculated LDL 97 mg/dL (<100); Chloride 102 mmol/L (98-107); Cholesterol 217 mg/dL (<200); Glucose 98 mg/dL (74-106); HDL Cholesterol 67 mg/dL (40-60); Potassium 3.7 mmol/L (3.5-5.1); Sodium 140 mmol/L (136-145); TSH (W/Ref FT4) 0.85 uIU/mL (0.36-3.74); Triglyceride 269 mg/dL (<150)
== END 2021-10-18 19:19 | disposition home or self-care (01) ==
LOC: NCHCN 19:18
PROVIDERS: PCP Nurse Practitioner Family; Visit Provider Nurse Practitioner Family
DX: E04.1 Nontoxic single thyroid nodule (principal); E78.5 Hyperlipidemia, unspecified; I10 Essential (primary) hypertension
CPT/HCPCS: 80048; 80061; 85027; 84443

== ENCOUNTER 2022-02-14 02:14 | Outpatient (CLI) | payer MEDICARE, MEDICAID, SELFPAY ==
--- NOTE | 2022-02-14 09:45 | DI.MAMMO_ITS ---
Exam(s) MAMMO SCREENING EXAM: MAMMO SCREENING CLINICAL HISTORY: SCREENING, Z12.39 TECHNIQUE: Bilateral full field digital CC and MLO mammographic images were obtained with 3D tomosyn thesis and utilizing computer aided detection (CAD). COMPARISON: Available for comparison. FINDINGS: Masses/Architectural Distortion: None seen. Microcalcifications: No suspicious pleomorphic-type are seen. Skin Thickening/Nipple Retraction: None. IMPRESSION: 1. No significant interval change with no specific features of malignancy noted. 2. Unless there is more urgent need, screening mammography is recommended, as per [employer] guidelines. BI-RADS Category 1 - Negative Breast Density - Category C - Heterogeneously dense Breast density category C or D implies that the patient has dense breast tissue. Dense breast tissue is very common and is not abnormal but dense breast tissue can make it harder to find cancer on a ma mmogram. Also, dense breast tissue may increase their breast cancer risk. This information about the result of the mammogram report was provided to the patient to raise their awareness. Use this report when you speak with the patient about their risks for breast cancer, which includes their family hist ory. At that time, you may recommend for more screening tests (Ultrasound or MRI) as they might be us eful based on their risk. A negative radiographic report should not delay biopsy if a dominant or clinically suspicious mass is present. Up to ten percent of cancers are not identified on mammography. A negative report may reinforce clinical impression. Adenosis and dense breasts may obscure an underlying neoplasm. False positive reports average 6 to 10%. Patient will receive a letter notifying them of these results.
== END 2022-02-14 02:34 ==
PROVIDERS: PCP Nurse Practitioner Family; Visit Provider Internal Medicine
DX: Z12.31 Encounter for screening mammogram for malignant neoplasm of breast (principal); R92.8 Other abnormal and inconclusive findings on diagnostic imaging of breast
CPT/HCPCS: 77063; 77067

== ENCOUNTER 2022-05-17 01:43 | Outpatient (CLI) | payer MEDICARE, MEDICAID, SELFPAY ==
--- NOTE | 2022-05-17 07:15 | DI.MRI_ITS ---
Exam(s) MR IAC BRAIN WO/W EXAM: MR IAC BRAIN WO/W CLINICAL HISTORY: right great than left hearing LOSS,VERTIGO,IMPAIRED SPEECH,H90.3,R47.9,R42. TECHNIQUE: Multiplanar multisequence MRI of the brain and internal auditory canals was performed. CONTRAST MATERIAL: IV Contrast: 13 mL of Magnevist contrast administered. COMPARISON: No exams were available for comparison FINDINGS: VENTRICLES AND EXTRA AXIAL SPACES: Normal in size and morphology for the patient's age. HEMORRHAGE: None. CEREBRAL PARENCHYMA: Some mild atrophy. Scattered foci high signal in the white matter consistent wi th sequela of chronic microvascular disease. No focus of restricted diffusion to suggest acute infar ct. No space-occupying lesion identified. MIDLINE SHIFT: None. BRAINSTEM/CEREBELLUM: Normal. CALVARIUM: Normal. ENHANCEMENT: No suspicious enhancement identified. VISUALIZED PARANASAL SINUSES/MASTOIDS: Clear. IAC/CP ANGLE: The internal auditory canals are within normal limits. The cerebellar pontine angles ar e unremarkable. No enhancing lesions are seen. . Cochlear and semicircular canals appear normal. OTHER FINDINGS: None. IMPRESSION: Unremarkable MRI of the brain and internal auditory canals. DATA REPOSITORY:
[2022-05-17 13:44] LABS: Estimated GFR 62.52 (mL/min/1.73m2)
[2022-05-17] MEDS: Normal Saline Flush 10 ML SYR IVP (14:33)
== END 2022-05-17 02:03 ==
PROVIDERS: PCP Nurse Practitioner Family; Visit Provider Otolaryngology
DX: H90.3 Sensorineural hearing loss, bilateral (principal); R42 Dizziness and giddiness
CPT/HCPCS: 70553; 82565

== ENCOUNTER 2022-08-16 14:05 | Outpatient (CLI) | payer MEDICARE, MEDICAID, SELFPAY ==
--- NOTE | 2022-08-16 13:06 | DI.RAD_ITS ---
Exam(s) XR SACRUM COCCYX XR SACROILIAC JOINTS EXAM: XR SACRUM COCCYX and XR sacroiliac joints CLINICAL HISTORY: SI JOINT PAIN RIGHT M53.3. TECHNIQUE: 2D digital imaging was performed. Seven images were obtained. COMPARISON: MR MR LUMBAR SPINE WO from 06/04/2020 FINDINGS: BONES: No acute fracture is present. No bony destructive lesion is seen. No erosions or ankylosis is seen in the sacroiliac joints. JOINTS: No dislocation present. There are degenerative changes of the sacroiliac joints, right greate r than left. SOFT TISSUE: Vascular calcifications are present. IMPRESSION: Degenerative changes of the sacroiliac joints, right greater than left. DATA REPOSITORY: RADIATION DOSE DELIVERED:
== END 2022-08-16 14:25 ==
LOC: DI 14:16
PROVIDERS: PCP Nurse Practitioner Family; Visit Provider Nurse Practitioner Family
DX: M46.1 Sacroiliitis, not elsewhere classified (principal)
CPT/HCPCS: 72202; 72220

== ENCOUNTER 2022-09-05 00:39 | Outpatient (CLI) | payer MEDICARE, MEDICAID, SELFPAY ==
--- NOTE | 2022-09-05 07:00 | DI.CTLCSR_ITS ---
Exam(s) CT CHEST LUNG CANCER SCREEN EXAM: CT CHEST LUNG CANCER SCREEN CLINICAL HISTORY: Screening for lung cancer,former smoker, copd, TECHNIQUE: Imaging Protocol: Axial computed tomography images with coronal and sagittal reformatted images were created and reviewed. Low dose screening protocol. COMPARISON: CT CT CHEST WO from 09/02/2021 FINDINGS: Tracheobronchial tree: No bronchiectasis or mucus plugging.. Mediastinum and Lynn: No dominant adenopathy or fluid collection. Pulmonary parenchyma: No consolidation or dominant measurable mass. Mild emphysematous changes. Lung Nodules: Scattered tiny calcified and noncalcified nodules consistent with granulomas. No suspi cious pulmonary nodules. No change from prior. Pleura: No effusion. No pneumothorax. Heart: The heart is not dilated. Mild coronary artery calcifications are seen. Stable mild pericard ial thickening anteriorly. Aorta: Thoracic aorta non-dilated.Mild atherosclerotic changes. Upper abdomen: Unremarkable. Stable area of low attenuation in the lateral right lobe of the liver . Bones: Unremarkable for age. Soft Tissues: Stable appearance of a lipoma in the left axilla. IMPRESSION: No suspicious pulmonary nodules. Lung RADS Cat 2 - Benign Appearance / Behavior: Nodules with a very low likelihood of becoming a clin ically active cancer due to size or lack of growth Lung-RADS 1.0 CATEGORIES: Category 0 - Prior chest CT exam(s) being located for comparison. Category 1 - Annual screening in 12 months. No nodules or definitely benign nodules. Category 2 - Annual screening in 12 months. Benign appearance. Nodules with low likelihood of becomin g active cancer. Category 3 - 6-month follow-up. Probably benign. Short-term follow-up suggested. Nodules with low lik elihood of becoming active cancer. Category 4A - 3-month follow-up and CT/PET if >8 mm in size. Suspicious finding. Findings which requi re additional testing. Category 4B - Findings which require additional testing and tissue sampling. Category 4X - Category 3 or 4 nodules with additional features or imaging findings that increases the suspicion of malignancy. Modifier S- Potentially clinically significant findings (non lung cancer) RADIATION DOSE DELIVERED: 80.57mGy.cm Total DLP DATA REPOSITORY: All CT scans at this facility are submitted to the National Radiology Data Registry (NRDR) Dose Index Registry (DIR) with the [employer] (ACR). RADIATION OPTIMIZATION: All CT scans at this facility use at least one of these dose optimization te chniques: automated exposure control; mA and/or kV adjustment per patient size (includes targeted exa ms where dose is matched to clinical indication); or iterative reconstruction.
== END 2022-09-05 00:59 ==
PROVIDERS: PCP Nurse Practitioner Family; Visit Provider Physician Assistant Surgical
DX: Z12.2 Encounter for screening for malignant neoplasm of respiratory organs (principal); J44.9 Chronic obstructive pulmonary disease, unspecified; Z87.891 Personal history of nicotine dependence
CPT/HCPCS: 71271

== ENCOUNTER 2022-11-27 17:43 | Outpatient (REF) | payer MEDICARE, MEDICAID, SELFPAY ==
[2022-11-27 16:09] LABS: ALT 32 U/L (14-59); AST 20 U/L (15-37); Albumin 3.7 g/dL (3.4-5.0); Alkaline Phosphatase 89 U/L (46-116); Anion Gap 12.8 mmol/L (3-11); BUN 9 mg/dL (7-18); Bilirubin, Total 0.5 mg/dL (0.2-1.0); CO2 23.2 mmol/L (21.0-32.0); CREATININE 0.9 mg/dL (0.55-1.02); Calcium 9.2 mg/dL (8.5-10.1); Calculated LDL 114 mg/dL (<100); Chloride 102 mmol/L (98-107); Cholesterol 215 mg/dL (<200); Estimated GFR 70.95 (mL/min/1.73m2); FREE T4 1.05 ng/dL (0.76-1.46); Glucose 93 mg/dL (74-106); HDL Cholesterol 76 mg/dL (40-60); Potassium 3.7 mmol/L (3.5-5.1); Sodium 138 mmol/L (136-145); TSH 0.54 uIU/mL (0.36-3.74); Total Protein 7.2 g/dL (6.4-8.2); Triglyceride 125 mg/dL (<150)
== END 2022-11-27 17:44 | disposition home or self-care (01) ==
LOC: NCHCN 17:43
PROVIDERS: PCP Nurse Practitioner Family; Visit Provider Nurse Practitioner Family
DX: I10 Essential (primary) hypertension (principal); E04.1 Nontoxic single thyroid nodule; E78.5 Hyperlipidemia, unspecified
CPT/HCPCS: 80053; 80061; 84439; 84443

== ENCOUNTER 2023-03-01 02:54 | Outpatient (CLI) | payer MEDICARE, MEDICAID, SELFPAY ==
--- OUTSIDE RECORDS SUMMARY | 2023-03-01 03:02 | XMS_ITS | Continuity of Care Document ---
Author Name Unknown Organization [facility] Address [address] [place] [address] Care Team Providers Care Rotating Field Assembler Name Role Phone Lalita Molina Primary Care Physician Encounter [facility] Date(s): 08/03/21 - 02/24/[address] [id number] Discharge Disposition: Home or Self Care Attending Physician: Lalita Molian Admitting Physician: Lalita Molina Referring Physician: Lalita Molina Allergies, Adverse Reactions, Alerts Substance Reaction Severity Status oxybutynin Urticaria Unknown Active conjugated estrogens-medroxyprogesterone Urticaria Unknown Active Assessment and Plan Future Appointments Future Scheduled Tests Laboratory* Comprehensive Metabolic Panel 07/26/21 * Lipid Panel 07/26/21 Radiology* MG Mammo Screening Bilateral w/ Tommie 01/24/22 Immunizations Given and Recorded Vaccine Date Status Refusal Reason SARS-CoV-2 (COVID-19) mRNA BNT-162b2 vax 12/15/20 Recorded SARS-CoV-2 (COVID-19) mRNA BNT-162b2 vax 11/24/20 Recorded SARS-COV-2 (COVID-19) vaccine, unspecifi 12/15/20 Recorded SARS-COV-2 (COVID-19) vaccine, unspecifi 11/24/20 Recorded tetanus/diphth/pertuss (Tdap) adult/adol 12/24/16 Recorded tetanus/diphth/pertuss (Tdap) adult/adol 01/17/07 Recorded influenza virus vaccine, inactivated 12/03/14 Mark rded influenza virus vaccine, inactivated 12/05/13 Mark rded influenza virus vaccine, inactivated 01/06/13 Mark rded influenza virus vaccine, inactivated 12/29/11 Mark rded influenza virus vaccine, inactivated 11/25/10 Mark rded influenza virus vaccine, inactivated 12/16/09 Mark rded influenza virus vaccine, inactivated 01/17/07 Mark rded influenza virus vaccine, inactivated 01/04/06 Mark rded pneumococcal 23-polyvalent vaccine 10/04/12 Record ed rubella virus vaccine 03/12/00 Recorded Medications albuterol 2.5 mg/3 mL (0.083%) inhalation solution See Instructions, Inhale 3 mL every 4-6 hours by nebulization route as needed for 30 days;, 0 Refill(s) Start Date: 07/22/21 Status: Ordered atorvastatin 40 mg oral tablet 1 tab, Oral, Daily, for 90 days, 0 Refill(s) Start Date: 07/22/21 Status: Ordered diazePAM 10 mg oral tablet See Instructions, PRN other (see comment), Take 1/2 to 1 tablet by mouth at bedtime as needed, 0 Refill(s) Start Date: 07/22/21 Status: Ordered fluticasone 50 mcg/inh nasal spray 2 sprays, Nasal, BID Start Date: 07/22/21 Status: Ordered hydroCHLOROthiazide 12.5 mg oral tablet 1 tab, Oral, Daily, for 90 days., 0 Refill(s) Start Date: 07/22/21 Status: Ordered ibuprofen 600 mg oral tablet 1 tab, Oral, TID, PRN other (see comment), as needed, 0 Refill(s) Start Date: 07/22/21 Status: Ordered loratadine 10 mg oral tablet 1 tab, Oral, Daily, for 90 days, 0 Refill(s) Start Date: 07/22/21 Status: Ordered nystatin 100,000 units/g topical cream 1 torrey, Oral, BID, Apply to affected area, 0 Refill(s) Start Date: 07/22/21 Status: Ordered omeprazole 40 mg oral delayed release capsule 1 cap, Oral, Daily, 0 Refill(s) Start Date: 07/22/21 Status: Ordered ProAir HFA 90 mcg/inh inhalation aerosol See Instructions, PRN other (see comment), Inhale two puffs by mouth every 4 to 6 hours as needed, 0 Refill(s) Start Date: 07/22/21 Status: Ordered Trelegy Ellipta 100 mcg-62.5 mcg-25 mcg/inh inhalation powder 0 Refill(s) Start Date: 07/22/21 Status: Ordered Problem List Condition Confirmation Course Effective Dates Status Health Status Informant Acute exacerbation of chronic obstructive airways disease 1 Confirmed Active Adenomatous polyp of colon Confirmed Active Asthma Confirmed Active Bone density finding Confirmed Active Candidiasis of mouth 2 Confirmed Active Chronic obstructive lung disease 3 Confirmed Active Chronic tracheobronchitis Confirmed Active Cough Confirmed Active Crush injury of finger of left hand Confirmed Active Cyst of pancreas 4 Confirmed 02/25/21 Active Dyspnea Confirmed Active Excessive eating - polyphagia 5 Confirmed 04/01/19 Active Gastroesophageal reflux disease without esophagitis Confirmed 10/20/19 Active Hyperlipidemia 6 Confirmed Active Long-term current use of drug therapy Confirmed Active Low back pain 7 Confirmed 10/20/19 Active Lumbosacral radiculopathy 8 Confirmed Active Mixed anxiety and depressive disorder 9 Confirmed 10/20/19 Active Multiple joint pain 10 Confirmed 10/20/19 Active Neck pain 11 Confirmed Active Nicotine dependence Confirmed Active Nodule of lung Confirmed 08/24/20 Active Pharyngitis Confirmed Active Thyroid nodule 12 Confirmed 04/26/21 Active Vitamin D deficiency Confirmed Active 1Increased productive cough, SOB and wheezing. Most consistent with COPD exacerbation. Start doxycycline 100 mg BID x 7 days. Patient would likely benefit from dual therapy with oral steroid; however,pt declines this. Rx for proair inhaler which can be used every 4-6 hours as needed for cough, sob or wheezing. Tessalon Perles for cough. I have also recommended trial of mucinex. Call with questions or concerns. 2slight adherant plaques to the roof of the mouth. Start nystatin. 3Mild, stable on trelegy 1 puff qd. She has only required her proair 3X in the last 2 weeks. Has established with [facility] pulmonology, last seen 03/2021. Question of Zvmf-Gufg-Aecu syndrome for cystic lung disease, no other phenotypic findings. Continued monitoring for now. Plan to follow up 09/2021. 42 cysts of pancreas seen incidentally on MR abdomen 02/2021, recommend 6 month follow up to ensure stability, this has been ordered and would be fufilled at [facility] 08/2021. : Check labs. Follow-up 1 week. Will contact patient and move up follow-up if abnormal labs. 6FLP 01/2021 LDL: 110 Goal for LDL <100 After discussion, will increase atorvastatin to 40 mg qd 7Chronic, MR within the last year was normal. She is working with PT - improvement. 8Back pain well controlled s/p completion of PT. She continues to walk routinely. Using IBU prn for pain. 9Mood stable with new living situation and community involvement. No change in plan of care. She still works with a counselor routinely at [facility]. 10Patient presents with increased joint pains. Noted to have significant ric node of right 1st digit. Had relief with PT in the past of lower back pain - seeing them now. Minimal tenderness on exam. No CVA tenderness. Significant family history of RA. Labs reveal positive GIL question diagnosis of seronegative RA, Lupus, or Polymyositis due to increasing pain with symptoms bilaterally. Will follow up on rheumatology referral as Jose Alberto has not heard anything. : Refer PT at [facility]. Previous PT with [place] when he worked at [employer]. Follow-up as scheduled with her PCP Ramona Melgar NP on 05/16/2019. 04/01/2019: Chronic neck pain. Suspect DDD/DJD. X-rays C-spine. Follow-up 1 week to review. incidental finding of TR4 thyroid nodule RT superior pole of thyroid, 1.6 in diameter - recommendation for bx. She was referred per [facility] to ENT for bx, but this did not occur. Will refer locally to [facility] for FNA bx. Will check TFTs today as well. Procedures Procedure Date Related Diagnosis Body Site Status Cataract surgery 03/11/16 Complete d section 03/11/76 Complete d Social History Social History Type Response Smoking Status Smoking tobacco use: Former smoker ; quit 08/13/2019;Never; Number used per day: 2 ppd; Number of years: 34; 1 entered on: 07/22/21 Sex Female 1Date of most recent tobacco screenin04-26-2021; using acupuncture Patient Care team information Personnel Name: Lalita Molina Address: Address: [facility] [address]
[2023-03-01 09:42] LABS: ALT 31 U/L (14-59); AST 20 U/L (15-37); Albumin 3.6 g/dL (3.4-5.0); Alkaline Phosphatase 92 U/L (46-116); Bilirubin, Total 0.6 mg/dL (0.2-1.0); Calculated LDL 111 mg/dL (<100); Cholesterol 207 mg/dL (<200); HDL Cholesterol 69 mg/dL (40-60); Total Protein 7.5 g/dL (6.4-8.2); Triglyceride 139 mg/dL (<150)
[2023-03-01 10:47] LABS: Bilirubin, Direct 0.2 mg/dL (0.0-0.2)
== END 2023-03-01 02:55 | disposition home or self-care (01) ==
LOC: LBO 02:54
PROVIDERS: PCP Nurse Practitioner Family; Visit Provider Nurse Practitioner Family
DX: E78.5 Hyperlipidemia, unspecified (principal)
CPT/HCPCS: 36415; 80061; 80076

== ENCOUNTER 2023-09-18 11:39 | Outpatient (REF) | payer MEDICARE, MEDICAID, SELFPAY ==
[2023-09-18 16:57] LABS: ALT 32 U/L (14-59); AST 28 U/L (15-37); Albumin 3.6 g/dL (3.4-5.0); Alkaline Phosphatase 97 U/L (46-116); Anion Gap 6.1 mmol/L (3-11); BUN 7 mg/dL (7-18); Bilirubin, Total 0.44 mg/dL (0.2-1.0); CO2 28.9 mmol/L (21.0-32.0); Calcium 8.8 mg/dL (8.5-10.1); Chloride 103 mmol/L (98-107); Estimated GFR 62.13 (mL/min/1.73m2); Glucose 88 mg/dL (74-106); Sodium 138 mmol/L (136-145); Total Protein 7.5 g/dL (6.4-8.2)
== END 2023-09-18 11:40 | disposition home or self-care (01) ==
LOC: NCHCN 11:39
PROVIDERS: PCP Nurse Practitioner Family; Visit Provider Nurse Practitioner Family
DX: I10 Essential (primary) hypertension (principal)
CPT/HCPCS: 80053

== ENCOUNTER → 2023-09-20 09:09 | Outpatient (BNVA) | payer MEDICARE, MEDICAID, SELFPAY | PROVIDERS: PCP Nurse Practitioner Family; Referring Provider Nurse Practitioner Family; Visit Provider Internal Medicine Critical Care Medicine | DX: J44.9 Chronic obstructive pulmonary disease, unspecified (principal); Z87.891 Personal history of nicotine dependence | CPT/HCPCS: 99213 ==

== ENCOUNTER 2023-09-21 02:11 | Outpatient (CLI) | payer MEDICARE, MEDICAID, SELFPAY ==
--- OUTSIDE RECORDS SUMMARY | 2023-09-21 02:14 | XMS_ITS | Encounter Summary ---
Author Organization [facility] Address [address] [place] [address] Care Team Providers Care Pick Up Driver Name Role Phone Unavailable Primary Care Provider Unavailabl e Encounter Details Date Type Department Care Team (Late st Contact Info) Description 06/14/2000 Results Only [facility] - Map conversion [address] [place] [address] Samantha Cortez CNM Social History Tobacco Use Types Packs/Day Years Used Date Smoking Tobacco: Never Assessed Sex and Gender Information Value Date Recorded Sex Assigned at Not on file Gender Identity Not on file Sexual Orientation Not on file documented as of this encounter Plan of Treatment Not on file documented as of this encounter Procedures Procedure Name Priority Date/Time Associated Diagnosis Comments CYTOPATHOLOGY Routine 06/14/2000 0:00 EDT documented in this encounter Results * CYTOPATHOLOGY (06/14/2000 0:00 EDT) Pathology Report: CYTOPATHOLOGY REPORT Reports generated via electronic interface contain original data; however they are lacking the format of the original report. Caution should be taken when reading/interpreti ng unformatted reports. Name: ? JOSE ALBERTO RAMIREZ ? Accession #: ? [id number] : ? 1955 (Age: 45) ??F ?Collect Date: ? 06/14/2000 Location: ? [facility] ? Receive Date: ? 06/18/2000 Provider: ?SAMANTHA JARVISM Copy to: ? Specimen/Source: ?ThinPrep Pap Test, Cervix/Endocervix Last Menstrual Period: ? 05/26/00 ? SPECIMEN ADEQUACY ? Satisfactory for evaluation. GENERAL CATEGORIZATION ? Benign Cellular Changes DESCRIPTIVE DIAGNOSIS ? Predominance of coccobacilli present consistent with shift in vaginal jeny. ? Document reviewed and electronically signed by: ? CHET Tatum(ASCP) ? Report Date: ??06/19/2000 13:12 End of Report MUNIRA OLIVEROS 06/14/2000 06/18/2000 Samantha Cortez CNM PATHOLOGY ORDERABLES [facility] [address] [place] [address] documented in this encounter Visit Diagnoses Not on filedocumented in this encounter
--- OUTSIDE RECORDS SUMMARY | 2023-09-21 02:14 | XMS_ITS | Encounter Summary ---
Author Organization [facility] Address [address] [place] [address] Care Team Providers Care Notching Press Operator Name Role Phone Ramona Melgar Primary Care Provider [phone] Encounter Details Date Type Department Care Team (Late st Contact Info) Description 07/23/2020 Lab Requisition [facility] Pathology & Laboratory Medicine - [address] [address] Outr Resulting Lab, Provider Social History Tobacco Use Types Packs/Day Years Used Date Smoking Tobacco: Light Smoker Cigarettes Smokeless Tobacco: Never Alcohol Use Standard Drinks/Week Comments Yes 0 (1 standard drink = 0.6 oz pur e alcohol) occasional Interpersonal Safety Answer Date Record ed Physically Hurt Never 10/12/2019 Verbally Threaten Not on file 10/12/2019 Sex and Gender Information Value Date Recorded Sex Assigned at Not on file Gender Identity Not on file Sexual Orientation Not on file documented as of this encounter Plan of Treatment Not on file documented as of this encounter Procedures Procedure Name Priority Date/Time Associated Diagnosis Comments CHLAMYDIA/N. GONORRHOEAE AMPLIFIED NUCLEIC ACID, THINPREP Routine 07/23/2020 14:11 EDT documented in this encounter Results * CHLAMYDIA/N. GONORRHOEAE AMPLIFIED RNA, THINPREP (07/23/2020 14:11 EDT) Neisseria gonorrhoeae Result Negative Negative 07/26/2020 15:27 EDT [facility] Chlamydia trachomatis Result Negative Negative 07/26/2020 15:27 EDT [facility] Papanicolaou smear specimen (specimen) CERVIX UTERI STRUCTURE / Unknown 07/23/2020 14:11 EDT 07/26/2020 8:07 EDT Provider Outr Resulting Lab MICROBIOLOGY - GENERAL ORDERABLES [facility] [address] [place] [address] documented in this encounter Visit Diagnoses Not on filedocumented in this encounter Care Teams Notching Press Operator Relationship Specialty Start Date End Date Ramona Melgar [address] [place] [address] [place] [phone] PCP - General 09/16/18 documented as of this encounter
--- OUTSIDE RECORDS SUMMARY | 2023-09-21 02:14 | XMS_ITS | Encounter Summary ---
Author Organization [facility] Address [address] [place] [address] Care Team Providers Care Help Desk Assistant Name Role Phone Ramona Melgar Primary Care Provider [phone] Encounter Details Date Type Department Care Team (Late st Contact Info) Description 08/17/2021 Lab Requisition [facility] Pathology & Laboratory Medicine - [address] [address] Polo Parker MD [address] [place] [address] [address] [place], [place] [address] Encounter for screening for malignant neoplasm of colon Social History Tobacco Use Types Packs/Day Years [...] Procedure Name Priority Date/Time Associated Diagnosis Comments SURGICAL PATHOLOGY Today 08/17/2021 14 :06 EDT Encounter for screening for malignant neoplasm of colon documented in this encounter Results * SURGICAL PATHOLOGY (08/17/2021 14:06 EDT) Note to Patient The following pathology results have been interpreted by your pathologist and may be available to you before your health provider has had the opportunity to review them. Please allow time for your provider to receive these results and explore management options, if applicable. 08/19/2021 16:17 [facility] Final Diagnosis A. COLON, TRANSVERSE, POLYP, BIOPSY: - Tubular adenoma. B. COLON, SIGMOID, POLYPS, BIOPSY: - Hyperplastic polyps. 08/19/2021 16:17 [facility] Attestation By the signature below, the attending physician certifies that they have 1) personally conducted a gross and/or microscopic examination of the described specimen(s), and/or personally interpreted the results of laboratory testing of the described specimen(s), and 2) personally rendered or confirmed the above diagnosis. 08/19/2021 16:17 [facility] at 1617 Clinical History Colon cancer screening 08/19/2021 16:17 [facility] Gross Description A. Received in formalin labelled with proper patient identification (initials B, M) and transverse colon polyp is a single fragment of rogers soft tissue (0.4 x 0.4 x 0.3 cm). The specimen is entirely submitted in A1. B. Received in formalin labelled with proper patient identification (initials B, M) and sigmoid colon polyps times 3 are 5 fragments of rogers soft tissue (ranging from 0.2 cm to 0.5 cm in greatest dimension). The specimen is entirely submitted in B1. RUSSEL LANDIN(ASCP) 08/18/2021 7:56 08/19/2021 16:17 [facility] Performing Lab [facility] 08/19/2021 16:17 [facility] Scanned Images 08/19/2021 16:17 [facility] Tissue ENTIRE SIGMOID COLON / Unknown 08/17/2021 14:06 EDT 08/17/2021 23:26 EDT Tissue specimen (specimen) SIGMOID COLON STRUCTURE / Unknown 08/17/2021 14:06 EDT 08/17/2021 23:26 EDT Polo Parker MD PATHOLOGY [facility] [address] [place] [address] documented in this encounter Visit Diagnoses Diagnosis Encounter for screening for malignant neoplasm of colon Special screening for malignant neoplasms, colon documented in this encounter Care Teams Help Desk Assistant Relationship Specialty Start Date End Date Ramona Melgar [address] [place] [address] [place] [phone] PCP - General 09/16/18 documented as of this encounter
--- OUTSIDE RECORDS SUMMARY | 2023-09-21 02:14 | XMS_ITS | Encounter Summary ---
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 No vision changes but her eyes get tired when she reads now. No new floaters or flashes. No pain. Encounter Details Date Type Department Care Team (Late st Contact Info) Description 03/25/2018 12:45 EST Office Visit [facility] Ophthalmology - [address] [id number] Nils Owen MD [address] [place] [phone] Social History Tobacco Use Types Packs/Day Years Used Date Smoking Tobacco: Light Smoker Cigarettes Smokeless Tobacco: Never Alcohol Use Standard Drinks/Week Comments Yes 0 (1 standard drink = 0.6 oz pur e alcohol) occasional Sex and Gender Information Value Date Recorded Sex Assigned at Not on file Gender Identity Not on file Sexual Orientation Not on file documented as of this encounter Progress Notes * Nils Owen MD - 03/25/2018 1245 EST Chief Complaint Patient presents with ??? Eye Exam 4 month f/u BMVO and RE right eye. No vision changes but her eyes get tired when she reads now. No new floaters or flashes. No pain. HPI Location: Both eyes Pain: 0 - No pain Quality: (none) Severity: Moderate Duration: Years Timing: Constant Lasts: Continuous Context: 4 month f/u BMVO and RE right eye. Modifying factors: nothing Associated Signs & Symptoms: no f/f Visual Fluctuations: None Attestation: Hypertensive BRVO right . Vision blurry right mild moderate, months constant. NO pain.No new f/f. Base Eye Exam Visual Acuity (Snellen - Linear) Right Left Dist cc 20/40 -2 20/20 -2 Correction: Glasses Tonometry (Applanation, 13:40) Right Left Pressure 17 16 Pupils Dark Light APD Right 1 1 None Left 1 1 None Visual Carmichael (Counting fingers) Right Left Full Full Extraocular Movement Right Left Full, Ortho Full, Ortho Neuro/Psych Oriented x3: Yes Mood/Affect: Normal Dilation Both eyes: 1.0% Mydriacyl, 2.5% Mikey Synephrine @ 13:41 Slit Lamp and Fundus Exam External Exam Right Left External Normal Normal Slit Lamp Exam Right Left Lids/Lashes Normal Normal Conjunctiva/Sclera White and quiet White and quiet Cornea Clear Clear Anterior Chamber Deep and quiet Deep and quiet Iris Round and reactive Round and reactive Lens Nuclear sclerosis, Posterior subcapsular cataract Posterior chamber intraocular lens, 1+ Posterior capsular opacification Vitreous Normal Normal Fundus Exam Right Left Disc Normal Normal C/D Ratio 0.3 0.3 Macula microvascular changes superior pole of fovea, BMVO in PM bundle Normal Vessels AV nicking AV nicking Periphery Normal Normal Imaging: OCT REPORT Indications: Macular Hole Findings: Right Eye Left Eye tiny cyst, normal thickness Normal Original test to be found in patients shadow chart Impression: 1. 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 Pseudophakia of left eye 3. Nuclear senile cataract of right eye Plan: BMVO right eye Well compensated Follow Retinal Edema right eye Minimal edema Follow PCIOL left eye Pt has well placed IOL(s) and natural lens of eye has been removed. There is no anterior segment inflammation. Positioning of selvin(s) is good. Patient reassured. Increased risk RD post lensectomy /IOL Spoke with Leah Ramirez and cautioned them to notice any new flashes, floaters, or loss in peripheral vision. If they saw any of these signs, they were instructed to contact office immediately. They have been further counseled to cover the unaffected eye at least once per day to ascertain whether there is any increase in floaters , flashes or loss of side vision occurring in the affected eye. NS cataract right eye Leah Ramirez was instructed that she has a cataract, but the cataract is not severe enough to require surgery at this time. Comment well compensated BMVO I, Dr. Owen, have performed my own HPI and reviewed the tech's ROS. I have also reviewed the patient's past medical, family, social and surgical history, as well as the patient's medications, allergies, and problem list. I am scribing for Dr. Nils Owen MD while he is personally performing the service. 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 Medication Sig Dispensed Refills Start Date End Date fluticasone/umeclidin/marisol anter (TRELEGY ELLIPTA INHALATION) Inhale as directed. fluticasone (FLONASE) 50 mcg/actuation nasal spray Instill 100 mcg into both nostrils daily. added in this encounter Eye Exam Visual Acuity (Snellen - Linear) Right eye Left eye Dist cc 20/40 -2 20/20 -2 Correction: Glasses Tonometry (Applanation, 13:40) Right eye Left eye Pressure 17 16 Pupils Dark Light APD Right eye 1 1 None Left eye 1 1 None Visual Carmichael (Counting fingers) Right eye Left eye Full Full Extraocular Movement Right eye Left eye Full, Ortho Full, Ortho Neuro/Psych Oriented x3: Yes Mood/Affect: Normal Dilation Both eyes: 1.0% Mydriacyl, 2 .5% Mikey Synephrine @ 13:41 External Exam Right eye Left eye External Normal Normal Slit Lamp Exam Right eye Left eye Lids/Lashes Normal Normal Conjunctiva/Sclera White and quiet White and sahil et Cornea Clear Clear Anterior Chamber Deep and quiet Deep and quiet Iris Round and reactive Round and tiffany ctive Lens Nuclear sclerosis, P osterior subcapsular cataract Posterior chamber intraocular lens, 1+ Posterior capsular opacification Vitreous Normal Normal Fundus Exam Right eye Left eye Disc Normal Normal C/D Ratio 0.3 0.3 Macula microvascular changes superior p ole of fovea, BMVO in PM bundle Normal Vessels AV nicking AV nicking Periphery Normal Normal Care Teams Formulation Technician Relationship Specialty Start Date End Date Unknown, Provider, PCP - General 02/13/18 09/15/18 documented as of this encounter
--- OUTSIDE RECORDS SUMMARY | 2023-09-21 02:14 | XMS_ITS | Encounter Summary ---
Author Organization [facility] Address [address] [place] [address] Care Team Providers Care Small Offset Printer Name Role Phone Unavailable Primary Care Provider Unavailabl e Encounter Details Date Type Department Care Team (Late st Contact Info) Description 01/04/2006 Results Only [facility] conversion [address] [place] [address] Ming Berman, FLUX CORE WELDER Social History Tobacco Use Types Packs/Day Years Used Date Smoking Tobacco: Never Assessed Sex and Gender Information Value Date Recorded Sex Assigned at Not on file Gender Identity Not on file Sexual Orientation Not on file documented as of this encounter Plan of Treatment Not on file documented as of this encounter Procedures Procedure Name Priority Date/Time Associated Diagnosis Comments CYTOPATHOLOGY Routine 01/04/2006 0:00 EDT documented in this encounter Results * CYTOPATHOLOGY (01/04/2006 0:00 EDT) Pathology Report: CYTOPATHOLOGY REPORT Reports generated via electronic interface contain original data; however they are lacking the format of the original report. Caution should be taken when reading/interpreti ng unformatted reports. Name: ? JOSE ALBERTO RAMIREZ ? Accession #: ? [id number] : ? 1955 (Age: 50) ??F ?Collect Date: ? 01/04/2006 Location: ? [facility] ? Receive Date: ? 01/05/2006 Provider: ?MING BERMAN FLUX CORE WELDER Copy to: ? Specimen/Source: ?ThinPrep Pap Test, Cervix/Endocervix, processed on [employer] ThinPrep Imaging System, with manual evaluation Last Menstrual Period: ? 12/18/05 Previous Gynecologic Pathology: ? ASC-US: -HR HPV 07/13, ??QNS for HPV testing 09/13 Other: ? HPVDX - HPV testing requested regardless of diagnosis on current ThinPrep Pap test. Additional clinical information: pap 07/12/05 WNL ? SPECIMEN ADEQUACY ? Satisfactory for Evaluation - transformation zone component present GENERAL CATEGORIZATION ? Negative for Intraepithelial Lesion or Malignancy ? Document reviewed and electronically signed by: ? SAMM Steinberg(ASCP) ? Report Date: ??01/09/2006 14:49 End of Report MUNIRA OLIVEROS 01/04/2006 01/05/2006 Ming Berman FLUX CORE WELDER PATHOLOGY ORDER JAMAL MUNIRA OLIVEROS [address] [place] [address] documented in this encounter Visit Diagnoses Not on filedocumented in this encounter
--- OUTSIDE RECORDS SUMMARY | 2023-09-21 02:14 | XMS_ITS | Referral Summary ---
Author Organization [facility] Address [address] [place] [address] Care Team Providers Care Lime Kiln Tender Name Role Phone Ramona Melgar Primary Care Provider [phone] Allergies Active Allergy Reactions Criticality Noted Date Comments Conj Estrog-Medroxyprogest Chris Anaphylaxis High 04/13 Medications Medication Sig Dispensed Refills Start Date End Date Status omeprazole (PRILOSEC) 20 mg capsule Take 20 mg by mouth daily. Active diazePAM (VALIUM) 10 mg tablet Take 10 mg by mouth 3 times daily. Active ibuprofen (MOTRIN) 600 mg tablet Take 600 mg by mouth 3 times daily. Active hydroCHLOROthiazide (HYDRODIURIL) 25 mg tablet Take 25 mg by mouth daily. Active fluticasone (FLONASE) 50 mcg/actuation nasal spray Instill 100 mcg into both nostrils daily. Active fluticasone/umeclidin /vilanter (TRELEGY ELLIPTA INHALATION) Inhale as directed. Active Active Problems Problem Noted Date Diagnosed Date BRVO (branch retinal vein occlusion) 06/05/2017 Retinal edema 06/05/2017 Nuclear senile cataract of right eye 06/05/2017 Pseudophakia of left eye 06/05/2017 Social History Tobacco Use Types Packs/Day Years [...] on file Sexual Orientation Not on file Last Filed Vital Signs Vital Sign Reading Time Taken Comments Blood Pressure 162/94 05/08/2017 1259 EST Pulse - - Temperature - - Respiratory Rate - - Oxygen Saturation - - Inhaled Oxygen Concentration - - Weight - - Height - - Body Mass Index - - Plan of Treatment Not on file Care Teams Lime Kiln Tender Relationship Specialty Start Date End Date Ramona Melgar [address] [place] [address] [place] [phone] PCP - General 09/16/18
--- OUTSIDE RECORDS SUMMARY | 2023-09-21 02:14 | XMS_ITS | Encounter Summary ---
Author Organization [facility] Address [address] [place] [address] Care Team Providers Care Leather Colorer Name Role Phone Unavailable Primary Care Provider Unavailabl e Encounter Details Date Type Department Care Team (Late st Contact Info) Description 07/12/2005 Results Only [facility] conversion [address] [place] [address] Ming Berman, FOREST RANGER Social History Tobacco Use Types Packs/Day Years Used Date Smoking Tobacco: Never Assessed Sex and Gender Information Value Date Recorded Sex Assigned at Not on file Gender Identity Not on file Sexual Orientation Not on file documented as of this encounter Plan of Treatment Not on file documented as of this encounter Procedures Procedure Name Priority Date/Time Associated Diagnosis Comments CYTOPATHOLOGY Routine 07/12/2005 0:00 EDT documented in this encounter Results * CYTOPATHOLOGY (07/12/2005 0:00 EDT) Pathology Report: CYTOPATHOLOGY REPORT Reports generated via electronic interface contain original data; however they are lacking the format of the original report. Caution should be taken when reading/interpreti ng unformatted reports. Name: ? JOSE ALBERTO RAMIREZ ? Accession #: ? [id number] : ? 1955 (Age: 50) ??F ?Collect Date: ? 07/12/2005 Location: ? [facility] ? Receive Date: ? 07/14/2005 Provider: ?MING BERMAN APRN Copy to: ? Specimen/Source: ?ThinPrep Pap Test, Cervix/Endocervix, processed on [employer] ThinPrep Imaging System, with manual evaluation Last Menstrual Period: ? 07/02/05 Previous Gynecologic Pathology: ? ASC-US: - HPV, insufficent for HPV testing 09/13 Other: ? HPVA - HPV testing requested if ASC-US on the current ThinPrep Pap test. ? SPECIMEN ADEQUACY ? Satisfactory for Evaluation - transformation zone component present GENERAL CATEGORIZATION ? Negative for Intraepithelial Lesion or Malignancy INTERPRETATION ? Reactive cellular changes associated with inflammation present (includes repair). ? Document reviewed and electronically signed by: ? Amy Becerra MD ? Report Date: ??07/19/2005 11:11 End of Report MUNIRA OLIVEROS 07/12/2005 07/14/2005 Ming Berman APRN PATHOLOGY ORDER JAMAL MUNIRA OLIVEROS [address] [place] [address] documented in this encounter Visit Diagnoses Not on filedocumented in this encounter
--- OUTSIDE RECORDS SUMMARY | 2023-09-21 02:14 | XMS_ITS | Encounter Summary ---
Author Organization [facility] Address [address] [place] [address] Care Team Providers Care Quality Control Tech Name Role Phone Linda Khan BARREL CHARRER HELPER Primary Care Provider [phone] Reason for Referral * (Routine) - New Request Specialty Diagnoses / Procedures Referred By Zackery daniels Referred To Contact Diagnoses Branch retinal vein occlusion of right eye with macular edema Procedures OCT (OPHTHALMIC DIGITAL IMAGING, POSTERIOR SEGMENT) Nils Owen MD [address] [place] [phone] Referral ID Status Reason Start Date Expiration Date V isits Requested Visits Authorized [id number] New Request 11/20/2017 1 1 Reason for Visit * Reason Comments Eye Problem Vision is the same b oth eyes, no pain, flashes or floaters HX of BMVO Encounter Details Date Type Department Care Team (Late st Contact Info) Description 11/20/2017 12:45 EDT Office Visit [facility] Ophthalmology [facility] [address] [place] [address] Nils Owen MD [address] [place] [phone] Social History Tobacco Use Types Packs/Day [...] Progress Notes * Nils Owen MD - 11/20/2017 1245 EDT Chief Complaint Patient presents with ??? Eye Problem Vision is the same both eyes, no pain, flashes or floaters HX of BMVO HPI Location: Both eyes Pain: 0 - No pain Quality: Severity: Moderate Duration: Years Timing: Constant Lasts: Continuous Context: Vision is the same both eyes, no pain, flashes or floaters HX of BMVO Modifying factors: Glasses Associated Signs & Symptoms: Vision is the same both eyes no pain Visual Fluctuations: Attestation: Patient is here for follow up on BMVO right eye, hx RE. Vision is stable, no pain, no new flashes or floaters. VA right eye mildly blurry compared to left. Years, constant, continuous. Blood pressure: A1c: Base Eye Exam Visual Acuity (Snellen - Linear) Right Left Dist cc 20/40 20/20 Tonometry (Applanation, 12:55) Right Left Pressure 15 14 Pupils Pupils APD Right PERRL None Left PERRL None Neuro/Psych Oriented x3: Yes Mood/Affect: Normal Dilation Both eyes: 1.0% Mydriacyl, 2.5% Phenylephrine @ 12:55 Slit Lamp and Fundus Exam External Exam Right Left External Normal Normal Slit Lamp Exam Right Left Lids/Lashes Normal Normal Conjunctiva/Sclera White and quiet White and quiet Cornea Clear Clear Anterior Chamber Deep and quiet Deep and quiet Iris Round and reactive Round and reactive Lens Nuclear sclerosis, Posterior subcapsular cataract Posterior chamber intraocular lens Fundus Exam Right Left Disc Normal Normal C/D Ratio 0.3 0.3 Macula microvascular changes superior pole of fovea, BMVO in PM bundle Normal Vessels AV nicking AV nicking Periphery Normal Normal OCT REPORT Indications: BMVO Findings: Right Eye Left Eye cystic edema Normal Original test to be found in patients shadow chart Impression: 1. 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 Hypertension, unspecified type 3. Nuclear sclerosis of right eye 4. Pseudophakia, left eye Assessment and Plan: BMVO with mild edema right eye Vision is stable at 20/40 No intervention at this time - pt declines Control BP Observe Hypertension with hypertensive retinopathy both eyes- av nicking , hx of bmvo Encourage tight BP control Mod NSC right eye Leah Ramirez was instructed that she has a cataract, but the cataract is not severe enough to require surgery at this time. PCIOL left eye Pt has well placed IOL(s) and natural lens of eye has been removed. There is no anterior segment inflammation. Positioning of selvin(s) is good. Patient reassured. Observe SUMMARY RETINAL ISSUES ARE CLINICALLY STABLE. PATIENT WILL FOLLOW UP AT APPOINTED TIME (OR PRN LOSS CENTRALVISION, CHANGE IN AMSLER GRID IF THEY ARE USING ONE FREQENTLY, OR NEW FLASHES OR FLOATERS OR LOSS SIDE VISION, EYE PAIN, PURULENT DISCHARGE ) EITHER WITH RETINA OR PRIMARY EYE CARE PROVIDER) Comment: mild edema right with BMVO, control BP, no intervention at this time Follow up 4 months with OCT or sooner PRN I, Dr. Owen, have performed my own HPI and reviewed the tech's ROS. I have also reviewed the patient's past medical, family, social and surgical history, as well as the patient's medications, allergies, and problem list. I am scribing for Dr. Nils wOen MD, while he is personally performing the service. KRYSTAL Ybarra (Scribe) documented in this encounter Plan of Treatment Scheduled Orders Name Type Priority Associated Diagnoses Orde r Schedule OCT (OPHTHALMIC DIGITAL IMAGING, POSTERIOR SEGMENT) Ophthalmology Routine Branch Retinal Vein Occlusion Of Right Eye With Macular Edema Ordered: 11/20/2017 documented as of this encounter Visit Diagnoses Diagnosis Branch retinal vein occlusion of right eye with macular edema- Primary Hypertension, unspecified type Nuclear sclerosis of right eye Pseudophakia, left eye Lens replaced by other means documented in this encounter Eye Exam Visual Acuity (Snellen - Linear) Right eye Left eye Dist cc 20/40 20/20 Tonometry (Applanation, 12:55) Right eye Left eye Pressure 15 14 Pupils Pupils APD Right eye PERRL None Left eye PERRL None Neuro/Psych Oriented x3: Yes Mood/Affect: Normal Dilation Both eyes: 1.0% Mydriacyl, 2 .5% Phenylephrine @ 12:55 External Exam Right eye Left eye External Normal Normal Slit Lamp Exam Right eye Left eye Lids/Lashes Normal Normal Conjunctiva/Sclera White and quiet White and sahil et Cornea Clear Clear Anterior Chamber Deep and quiet Deep and quiet Iris Round and reactive Round and tiffany ctive Lens Nuclear sclerosis, P osterior subcapsular cataract Posterior chamber intraocular lens Fundus Exam Right eye Left eye Disc Normal Normal C/D Ratio 0.3 0.3 Macula microvascular changes superior p ole of fovea, BMVO in PM bundle Normal Vessels AV nicking AV nicking Periphery Normal Normal Care Teams Quality Control Tech Relationship Specialty Start Date End Date Linda Khan NP PCP - General 04/19/17 02/12/18 documented as of this encounter
--- OUTSIDE RECORDS SUMMARY | 2023-09-21 02:14 | XMS_ITS | Encounter Summary ---
Author Organization [facility] Address [address] [place] [address] Care Team Providers Care Manager Money Name Role Phone Linda Khan TRAUMA NURSE Primary Care Provider [phone] Reason for Referral * (Routine) - New Request Specialty Diagnoses / Procedures Referred By Zackery daniels Referred To Contact Diagnoses Branch retinal vein occlusion of right eye with macular edema Procedures OCT (OPHTHALMIC DIGITAL IMAGING, POSTERIOR SEGMENT) Nils Owen MD [address] [place] [phone] Referral ID Status Reason Start Date Expiration Date V isits Requested Visits Authorized [id number] New Request 09/18/2017 1 1 Reason for Visit * Reason Comments Eye Problem BRVO with Mac. Edema right eye Encounter Details Date Type Department Care Team (Late st Contact Info) Description 09/18/2017 12:30 EDT Office Visit [facility] Ophthalmology [id number] [place] [address] Nils Owen MD [address] [place] [phone] Social History Tobacco Use Types Packs/Day [...] Progress Notes * Nils Owen MD - 09/18/2017 1230 EDT Chief Complaint Patient presents with ??? Eye Problem BRVO with Mac. Edema right eye HPI Location: Right eye Pain: 0 - No pain Quality: Severity: Duration: Months Timing: Constant Lasts: Months Context: BRVO with Mac. Edema right eye Modifying factors: VA has improved since last visit, no pain, no flashes and floaters Associated Signs & Symptoms: Blood pressure has improved with medication Visual Fluctuations: None Attestation: BMVO follow up, vision is getting better, mildly blurry right eye. No pain, no flashesor floaters. Months, constant, continuous. BP has been good per patient, on HCTZ. Blood pressure: A1c: Base Eye Exam Visual Acuity (Snellen - Linear) Right Left Dist cc 20/40 +1 20/20 Dist ph cc 20/25 Correction: Glasses Tonometry (Applanation, 12:48) Right Left Pressure 14 14 Pupils Dark Light React Right 3 2 Brisk Left 3 2 Brisk Dilation Both eyes: 2.5% Phenylephrine, 1.0% Mydriacyl @ 12:50 Slit Lamp and Fundus Exam External Exam Right Left External Normal Normal Slit Lamp Exam Right Left Lids/Lashes Normal Normal Conjunctiva/Sclera White and quiet White and quiet Cornea Clear Clear Anterior Chamber Deep and quiet Deep and quiet Iris Round and reactive Round and reactive Lens 2+ Nuclear sclerosis Posterior chamber intraocular lens Vitreous Normal Normal Fundus Exam Right Left Disc vein above disc Normal C/D Ratio 0.2 0.2 Macula thickening superior mac Normal Vessels BMVO Normal Periphery Normal Normal OCT REPORT Indications: BMVO Findings: Right Eye Left Eye increased thickness superior macula, no worse than last time Normal Original test to be found in patients shadow chart Impression: 1. 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 Hypertension, unspecified type 3. Nuclear sclerosis of right eye 4. Pseudophakia, left eye Assessment and Plan: BMVO/RE right eye Stable, likely second to hypertension Continue best efforts at BP control Monitor closely Hypertension BP is better managed now that patient is on HCTZ Mild NSC right eye Leah Ramirez was instructed that she has a cataract, but the cataract is not severe enough to require surgery at this time. PCIOL left eye Pt has well placed IOL(s) and natural lens of eye has been removed. There is no anterior segment inflammation. Positioning of selvin(s) is good. Patient reassured. Observe Comment: BMVO right eye stable, BP under better control. Follow up 2 months with OCT or sooner PRN I, Dr. Owen, have performed my own HPI and reviewed the tech's ROS. I have also reviewed the patient's past medical, family, social and surgical history, as well as the patient's medications, allergies, and problem list. I am scribing for Dr. Nils Owen MD, while he is personally performing the service. KRYSTAL Ybarra (Scribe) documented in this encounter Plan of Treatment Scheduled Orders Name Type Priority Associated Diagnoses Orde r Schedule OCT (OPHTHALMIC DIGITAL IMAGING, POSTERIOR SEGMENT) Ophthalmology Routine Branch Retinal Vein Occlusion Of Right Eye With Macular Edema Ordered: 09/18/2017 documented as of this encounter Visit Diagnoses Diagnosis Branch retinal vein occlusion of right eye with macular edema- Primary Hypertension, unspecified type Nuclear sclerosis of right eye Pseudophakia, left eye Lens replaced by other means documented in this encounter Eye Exam Visual Acuity (Snellen - Linear) Right eye Left eye Dist cc 20/40 +1 20/20 Dist ph cc 20/25 Correction: Glasses Tonometry (Applanation, 12:48) Right eye Left eye Pressure 14 14 Pupils Dark Light React Right eye 3 2 Brisk Left eye 3 2 Brisk Dilation Both eyes: 2.5% Phenylephrin e, 1.0% Mydriacyl @ 12:50 External Exam Right eye Left eye External Normal Normal Slit Lamp Exam Right eye Left eye Lids/Lashes Normal Normal Conjunctiva/Sclera White and quiet White and sahil et Cornea Clear Clear Anterior Chamber Deep and quiet Deep and quiet Iris Round and reactive Round and tiffany ctive Lens 2+ Nuclear sclerosis Posterior c hamber intraocular lens Vitreous Normal Normal Fundus Exam Right eye Left eye Disc vein above disc Normal C/D Ratio 0.2 0.2 Macula thickening superior mac Normal Vessels BMVO Normal Periphery Normal Normal Care Teams Manager Money Relationship Specialty Start Date End Date Linda Khan NP PCP - General 04/19/17 02/12/18 documented as of this encounter
--- OUTSIDE RECORDS SUMMARY | 2023-09-21 02:14 | XMS_ITS | Encounter Summary ---
Author Organization [facility] Address [address] [place] [address] Care Team Providers Care Glass Tinter Name Role Phone Unavailable Primary Care Provider Unavailabl e Encounter Details Date Type Department Care Team (Late st Contact Info) Description 09/27/2004 Results Only [facility] [address] [place] [address] Ming Berman, TRENCH SHOVEL OPERATOR Social History Tobacco Use Types Packs/Day Years Used Date Smoking Tobacco: Never Assessed Sex and Gender Information Value Date Recorded Sex Assigned at Not on file Gender Identity Not on file Sexual Orientation Not on file documented as of this encounter Plan of Treatment Not on file documented as of this encounter Procedures Procedure Name Priority Date/Time Associated Diagnosis Comments CYTOPATHOLOGY Routine 09/27/2004 0:00 EDT documented in this encounter Results * CYTOPATHOLOGY (09/27/2004 0:00 EDT) Pathology Report: CYTOPATHOLOGY REPORT Reports generated via electronic interface contain original data; however they are lacking the format of the original report. Caution should be taken when reading/interpreti ng unformatted reports. Name: ? JOSE ALBERTO RAMIREZ ? Accession #: ? [id number] : ? 1955 (Age: 49) ??F ?Collect Date: ? 09/27/2004 Location: ? [facility] ? Receive Date: ? 09/29/2004 Provider: ?MING BERMAN APRN Copy to: ? Specimen/Source: ?ThinPrep Pap Test, Cervix/Endocervix, processed on [employer] ThinPrep Imaging System, with manual evaluation Last Menstrual Period: ? 09/13/04 Previous Gynecologic Pathology: ? ASC-US Other: ? HPVA - HPV testing requested if ASC-US on the current ThinPrep Pap test. ? SPECIMEN ADEQUACY ? Satisfactory for Evaluation - transformation zone component present GENERAL CATEGORIZATION ? Epithelial Cell Abnormality INTERPRETATION ? Squamous Cell Abnormality - Atypical squamous cells, undetermined significance. EDUCATIONAL NOTES/RECOMMENDATI ONS ? [facility] recommends following the 2001 Consensus Guidelines for the Management of Women with Cervical Cytological Abnormalities (SEBASTIAN,2002;287:212 0-9). Management algorithms have been distributed by [facility] and are available online at www.[email or web address]. ? Document reviewed and electronically signed by: ? SAMIR HERRERA MD ? Report Date: ??10/07/2004 17:41 End of Report MUNIRA OLIVEROS 09/27/2004 09/29/2004 Ming Berman APRN PATHOLOGY ORDER JAMAL MUNIRA OLIVEROS [address] [place] [address] documented in this encounter Visit Diagnoses Not on filedocumented in this encounter
--- OUTSIDE RECORDS SUMMARY | 2023-09-21 02:14 | XMS_ITS | Encounter Summary ---
Author Organization [facility] Address [address] [place] [address] Care Team Providers Care Manager Small Business Name Role Phone Linda Khan STAFF INTERPRETER Primary Care Provider [phone] Reason for Referral * (Routine) - New Request Specialty Diagnoses / Procedures Referred By Zackery daniels Referred To Contact Diagnoses BRVO (branch retinal vein occlusion) Retinal edema Procedures FLUORESCEIN ANGIOGRAPHY Nils Owen MD [address] [place] [phone] Referral ID Status Reason Start Date Expiration Date V isits Requested Visits Authorized [id number] New Request 06/05/2017 1 1 * (Routine) - New Request Specialty Diagnoses / Procedures Referred By Zackery daniels Referred To Contact Diagnoses BRVO (branch retinal vein occlusion) Retinal edema Procedures EYE PHOTOGRAPHY (FUNDUS) Nils Owen MD [address] [phone] Referral ID Status Reason Start Date Expiration Date V isits Requested Visits Authorized [id number] New Request 06/05/2017 1 1 * (Routine) - New Request Specialty Diagnoses / Procedures Referred By Contjuanjo daniels Referred To Contact Diagnoses BRVO (branch retinal vein occlusion) Retinal edema Procedures OCT (OPHTHALMIC DIGITAL IMAGING, POSTERIOR SEGMENT) Nils Owen MD [address] [phone] Referral ID Status Reason Start Date Expiration Date V isits Requested Visits Authorized [id number] New Request 06/05/2017 1 1 Reason for Visit * Reason Comments Eye Problem Pt. here for eye exa m including OCT, DFE, IVFA acute right with H/O BRVO with Macular edema right eye, cataract right eye, PCIOL left eye. Pt. states VA BP rechecked yesterday and improved since last seen. VA stable, no eye pain, no new or differnt f/f, some itching relieved with cool water washcloth. Encounter Details Date Type Department Care Team (Late st Contact Info) Description 06/05/2017 12:30 EDT Office Visit [facility] Ophthalmology - [id number] [place] [address] Nils Owen MD [address] [place] [address] [address] [place] [phone] Social History Tobacco Use Types Packs/Day [...] Progress Notes * Nils Owen MD - 06/05/2017 1230 EDT Chief Complaint Patient presents with ??? Eye Problem Pt. here for eye exam including OCT, DFE, IVFA acute right with H/O BRVO with Macular edema right eye, cataract right eye, PCIOL left eye. Pt. states VA BP rechecked yesterday and improved since lastseen. VA stable, no eye pain, no new or differnt f/f, some itching relieved with cool water washcloth. HPI 62 year old female with hx BMVO right eye here for follow up and IVFA Vision mildly blurry right eye, months, constant, no eye pain. Left eye sees clearly Location: Right eye Pain: 0 - No pain Quality: Blurry Severity: Mild Duration: Months Timing: Constant Lasts: Continuous Context: Pt. here for eye exam including OCT, DFE, IVFA acute right with H/O BRVO with Macular edema right eye, cataract right eye, PCIOL left eye. Pt. states VA BP rechecked yesterday and improved since last seen. VA stable, no eye pain, no new or differnt f/f, some itching relieved with cool water washcloth. Modifying factors: DFE, OCT, IVFA Associated Signs & Symptoms: blurry vision Visual Fluctuations: None Attestation: Base Eye Exam Visual Acuity (Snellen - Linear) Right Left Dist cc 20/40 +1 20/20 Dist ph cc 20/30 -2 Correction: Glasses Tonometry (Applanation, 13:02) Right Left Pressure 19 14 Pupils Dark React APD Right 2 Minimal None Left 2 Minimal None Visual Carmichael Right Left Result Full Full Extraocular Movement Right Left Result Full Full Neuro/Psych Oriented x3: Yes Mood/Affect: Normal Dilation Both eyes: 1.0% Mydriacyl, 2.5% Phenylephrine @ 13:06 Slit Lamp and Fundus Exam Slit Lamp Exam Right Left Lids/Lashes Normal Normal Conjunctiva/Sclera White and quiet White and quiet Cornea Clear Clear Anterior Chamber Deep and quiet Deep and quiet Iris Round and reactive Round and reactive Lens 2+ Nuclear sclerosis Posterior chamber intraocular lens; PCO Fundus Exam Right Left Disc Normal C/D Ratio 0.3 Macula IR hemes, cotton wool spot, edema superior macula Normal Vessels Normal Normal Periphery Normal Normal Imaging: Photos/IVFA done today: see dictation Impression: 1. BRVO (branch retinal vein occlusion) OCT (OPHTHALMIC DIGITAL IMAGING, POSTERIOR SEGMENT) EYE PHOTOGRAPHY (FUNDUS) FLUORESCEIN ANGIOGRAPHY 2. Retinal edema OCT (OPHTHALMIC DIGITAL IMAGING, POSTERIOR SEGMENT) EYE PHOTOGRAPHY (FUNDUS) FLUORESCEIN ANGIOGRAPHY 3. Nuclear senile cataract of right eye 4. Pseudophakia of left eye Plan: Branch macular vein occlusion right eye with mild edema Discussed BP control Discussed observation vs intravit injection-will discuss with BK Mod NSC right eye, ? Visually significant Observe Pseudophakia left eye, well done Pt has well placed IOL(s) and natural lens of eye has been removed. There is no anterior segment inflammation. Positioning of selvin(s) is good. Patient reassured. Observe Recheck 6 weeks Advised pt to DC smoking This office note has been dictated. Spoke with Dr Soriano re this patient and he felt that since patient was trending better and BP was improving it would be best to follow at this point rather than initiate injections so will recommend careful follow up. This has been conveyed to patient via Teersa Paddy ( stressed importance of keeping f/u appts) I, Dr. Owen, have performed my own HPI and reviewed the tech's ROS. I have also reviewed the patient's past medical, family, social and surgical history, as well as the patient's medications, allergies, and problem list. I am scribing for, Nils Owen MD, while he is personally performing the service. KRYSTAL Manzo (Scribe) * Nils Owen MD - 06/05/[address] [facility] OPHTHALMOLOGY June 05, 2017 RE: JOSE ALBERTO RAMIREZ : 1955 Fluorescein and photos INDICATIONS: Branch macular vein occlusion, right. Color photos reveal cotton-wool spots and some intraretinal hemorrhages in the superior juxtamacular region. Cupping is about 0.3. Left eye looks normal. ASSESSMENT: Bmvo, right. PLAN: Fluorescein directed toward the right eye shows a classic B branch macular vein occlusion with some juxtacentral microvasculopathy and probably a trace of capillary dropout. Moderate leakage isnoted in the region of the branch macular vein. The fellow eye looks normal. ASSESSMENT: Branch macular vein occlusion with some superior juxtacentral leakage. Clinical correlation reveals a vein occlusion in the superior macula and the OCT correlation reveals some minimal central cystic changes. ASSESSMENT: Vein occlusion, relatively mild with mild component of capillary dropout. The patient'sblood pressure has been under better control recently. Encouraged continued excellent blood pressure control. We will see the patient again in 6 weeks. We will discuss this patient with Dr Soriano to seeif he feels the patient should have anti-VEGF injections initiated based upon OCT and fluorescein. Discussed with Dr Soriano who notes problem is mild and may be improving derrek since BP better. We will follow for now. Nils Owen MD 02 29 PM - Nisl Owen MD jn Dictation ID: [id number] Britta Israel copy IVFA/PHOTOS documented in this encounter Plan of Treatment Scheduled Orders Name Type Priority Associated Diagnoses Orde r Schedule OCT (OPHTHALMIC DIGITAL IMAGING, POSTERIOR SEGMENT) Ophthalmology Routine Brvo (Branch Retinal Vein Occlusion) Retinal edema Ordered: 06/05/2017 EYE PHOTOGRAPHY (FUNDUS) Ophthalmology Routine Brvo (Branch Retinal Vein Occlusion) Retinal edema Ordered: 06/05/2017 FLUORESCEIN ANGIOGRAPHY Ophthalmology Routine Brvo (Branch Retinal Vein Occlusion) Retinal edema Ordered: 06/05/2017 documented as of this encounter Visit Diagnoses Diagnosis BRVO (branch retinal vein occlusion)- Primary Retinal edema Nuclear senile cataract of right eye Pseudophakia of left eye Lens replaced by other means documented in this encounter Historical Medications * This list may reflect changes made after this encounter. Medication Sig Dispensed Refills Start Date End Date hydroCHLOROthiazide (HYDRODIURIL) 25 mg tablet Take 25 mg by mouth daily. ibuprofen (MOTRIN) 600 mg tablet Take 600 mg by mouth 3 times daily. diazePAM (VALIUM) 10 mg tablet Take 10 mg by mouth 3 times daily. omeprazole (PRILOSEC) 20 mg capsule Take 20 mg by mouth daily. ALBUTEROL SULFATE (PROAIR HFA INHALATION) Inhale 1 Puff as directed. 09/18/2018 TIOTROPIUM BROMIDE (SPIRIVA RESPIMAT INHALATION) Inhale 1 Puff as directed. 09/18/2018 budesonide-formoterol HFA (SYMBICORT) 160-4.5 mcg/actuation HFA aerosol inhaler inhaler Inhale 1 Puff as directed 2 times daily. 09/18/2018 added in this encounter Eye Exam Visual Acuity (Snellen - Linear) Right eye Left eye Dist cc 20/40 +1 20/20 Dist ph cc 20/30 -2 Correction: Glasses Tonometry (Applanation, 13:02) Right eye Left eye Pressure 19 14 Pupils Dark React APD Right eye 2 Minimal None Left eye 2 Minimal None Visual Carmichael Right eye Left eye Full Full Extraocular Movement Right eye Left eye Full Full Neuro/Psych Oriented x3: Yes Mood/Affect: Normal Dilation Both eyes: 1.0% Mydriacyl, 2 .5% Phenylephrine @ 13:06 Slit Lamp Exam Right eye Left eye Lids/Lashes Normal Normal Conjunctiva/Sclera White and quiet White and sahil et Cornea Clear Clear Anterior Chamber Deep and quiet Deep and quiet Iris Round and reactive Round and tifafny ctive Lens 2+ Nuclear sclerosis Posterior c hamber intraocular lens; PCO Fundus Exam Right eye Left eye Disc Normal C/D Ratio 0.3 Macula IR hemes, cotton wool spot, ortega a superior macula Normal Vessels Normal Normal Periphery Normal Normal Care Teams Manager Small Business Relationship Specialty Start Date End Date Linda Khan NP PCP - General 04/19/17 02/12/18 documented as of this encounter
--- OUTSIDE RECORDS SUMMARY | 2023-09-21 02:14 | XMS_ITS | Encounter Summary ---
Author Organization [facility] Address [address] [place] [address] Care Team Providers Care Racecourse Barrier Attendant Name Role Phone Unavailable Primary Care Provider Unavailabl e Encounter Details Date Type Department Care Team (Late st Contact Info) Description 01/17/2007 Results Only [facility] - Maple conversion [address] [place] [address] Ming Berman APRN Social History Tobacco Use Types Packs/Day Years Used Date Smoking Tobacco: Never Assessed Sex and Gender Information Value Date Recorded Sex Assigned at Not on file Gender Identity Not on file Sexual Orientation Not on file documented as of this encounter Plan of Treatment Not on file documented as of this encounter Procedures Procedure Name Priority Date/Time Associated Diagnosis Comments HPV DETECTION, HIGH RISK TYPES Routine 01/17/2007 10:12 EST CYTOPATHOLOGY Routine 01/17/2007 0:00 EST documented in this encounter Results * HUMAN PAPILLOMA VIRUS DNA TEST (01/17/2007 10:12 EST) Specimen Description Cervix, ThinPrep vial [facility] Result Quantity not sufficient. [facility] Report Status Final [id number] [facility] 01/17/2007 10:1 2 EST 01/25/2007 10:12 EST Ming Berman APRN MICROBIOLOGY - GENERAL ORDERABLES [facility] [address] [place] [address] * CYTOPATHOLOGY (01/17/2007 0:00 EST) Pathology Report: CYTOPATHOLOGY REPORT Reports generated via electronic interface contain original data; however they are lacking the format of the original report. Caution should be taken when reading/interpreti ng unformatted reports. Name: ? JOSE ALBERTO RAMIREZ ? Accession #: ? [id number] : ? 1955 (Age: 51) ??F ?Collect Date: ? 01/17/2007 Location: ? [facility] ? Receive Date: ? 01/21/2007 Provider: ?MING BERMAN ART CLASS MODEL Copy to: ? Specimen/Source: ?ThinPrep Pap Test, Cervix/Endocervix, processed on [employer] ThinPrep Imaging System, with manual evaluation Last Menstrual Period: ? Previous Gynecologic Pathology: ? ASC-US: negative HR HPV 08/13 ASC-US: 09/13 Other: ? Additional clinical information: Pap 12/15 wnl HPVDX - HPV testing requested regardless of diagnosis on current ThinPrep Pap test. ? SPECIMEN ADEQUACY ? Satisfactory for Evaluation - transformation zone component present GENERAL CATEGORIZATION ? Other, see interpretation INTERPRETATION ? Endometrial cells present in a woman equal to or greater than age 40. Negative for Intraepithelial Lesion. EDUCATIONAL NOTES/RECOMMENDATI ONS ? Benign appearing endometrial cells on Pap tests are usually a normal finding in women with regular menstrual cycles, especially if the Pap test was collected during the first half of the menstrual cycle. There is data showing that endometrial cells on Pap tests may be associated with endometrial/uterin e abnormalities in post menopausal women or in perimenopausal women with abnormal bleeding. There is limited data on the significance of benign endometrial cells in post menopausal women on HRT. ??Clinical correlation is recommended. Note: ??The Pap test is not an accurate test for the screening of endometrial lesions and should not be used as a follow up in patients with clinical suspicion of endometrial pathology. ? Document reviewed and electronically signed by: ? CHET Templeton(ASCP) ? Report Date: ??01/24/2007 14:41 End of Report [facility] 01/17/2007 01/21/2007 Ming Berman APRN PATHOLOGY ORDER JAMAL [facility] [address] [place] [address] documented in this encounter Visit Diagnoses Not on filedocumented in this encounter
--- OUTSIDE RECORDS SUMMARY | 2023-09-21 02:14 | XMS_ITS | Encounter Summary ---
Author Organization [facility] Address [address] [place] [address] Care Team Providers Care Hand Wrapper Operator Name Role Phone Unavailable Primary Care Provider Unavailabl e Encounter Details Date Type Department Care Team (Late st Contact Info) Description 09/09/2003 Results Only [facility] - Maple conversion [address] [place] [address] Ming Berman APRN Social History Tobacco Use [...] Comments HPV DETECTION, HIGH RISK TYPES Routine 09/09/2003 15:05 EDT CYTOPATHOLOGY Routine 09/09/2003 0:00 EDT documented in this encounter Results * HUMAN PAPILLOMA VIRUS DNA TEST (09/09/2003 15:05 EDT) Specimen Description Cervix, ThinPrep vial [facility] Result Sample quantity insufficient for testing. Credit Issued [facility] Report Status Final [id number] [facility] 09/09/2003 15:0 5 EDT 09/23/2003 15:05 EDT Ming Berman APRN MICROBIOLOGY - GENERAL ORDERABLES [facility] [address] [place] [address] * CYTOPATHOLOGY (09/09/2003 0:00 EDT) Pathology Report: CYTOPATHOLOGY REPORT Reports generated via electronic interface contain original data; however they are lacking the format of the original report. Caution should be taken when reading/interpreti ng unformatted reports. Name: ? JOSE ALBERTO RAMIREZ ? Accession #: ? [id number] : ? 1955 (Age: 48) ??F ?Collect Date: ? 09/09/2003 Location: ? [facility] ? Receive Date: ? 09/11/2003 Provider: ?MING BERMAN ELECTRICAL FITTER Copy to: ? Specimen/Source: ?ThinPrep Pap Test, Cervix/Endocervix Last Menstrual Period: ? 08/19/03 Other: ? HPVA - HPV testing requested if ASC-US on the current ThinPrep Pap test. ? SPECIMEN ADEQUACY ? Satisfactory for Evaluation - transformation zone component present GENERAL CATEGORIZATION ? Epithelial Cell Abnormality INTERPRETATION ? Squamous Cell Abnormality - Atypical squamous cells, undetermined significance. EDUCATIONAL NOTES/RECOMMENDATI ONS ? [facility] recommends following the 2001 Consensus Guidelines for the Management of Women with Cervical Cytological Abnormalities (SEBASTIAN,2002;287:212 0-9). Management algorithms have been distributed by [facility] and are available online at www.ASCCP.org. ? Document reviewed and electronically signed by: ? LAURA EAGLE MD [facility] ? Report Date: ??09/23/2003 12:56 End of Report [facility] 09/09/2003 09/11/2003 Ming Berman APRN PATHOLOGY ORDER JAMAL [facility] [address] [place] [address] documented in this encounter Visit Diagnoses Not on filedocumented in this encounter
--- OUTSIDE RECORDS SUMMARY | 2023-09-21 02:14 | XMS_ITS | Encounter Summary ---
Author Organization [facility] Address [address] [place] [address] Care Team Providers Care Welder Experimental Name Role Phone Unavailable Primary Care Provider Unavailabl e Encounter Details Date Type Department Care Team (Late st Contact Info) Description 06/16/1999 Results Only [facility] - Map conversion [address] [place] [address] Samantha Abreu CNM Social History Tobacco Use Types Packs/Day Years Used Date Smoking Tobacco: Never Assessed Sex and Gender Information Value Date Recorded Sex Assigned at Not on file Gender Identity Not on file Sexual Orientation Not on file documented as of this encounter Plan of Treatment Not on file documented as of this encounter Procedures Procedure Name Priority Date/Time Associated Diagnosis Comments CYTOPATHOLOGY Routine 06/16/1999 13:33 EDT documented in this encounter Results * CYTOPATHOLOGY (06/16/1999 13:33 EDT) Pathology Report: CYTOPATHOLOGY REPORT Reports generated via electronic interface contain original data; however they are lacking the format of the original report. Caution should be taken when reading/interpreti ng unformatted reports. Name: ? JOSE ALBERTO RAMIREZ ? Accession #: ? [id number] : ? 1955 (Age: 44) ??F ?Collect Date: ? 06/16/1999 Location: ?Receive Date: ? 06/16/1999 Provider: ?SAMANTHA ABREU CNM Copy to: ?SAMANTHA DULUDE CNM ? Specimen/Source: ?Pap Smear (One Slide) Last Menstrual Period: ? GYNECOLOGIC ??CYTOPATHOLOGY ??REPORT Name: JOSE ALBERTO RAMIREZ ? [facility] : 1955 ?? 44Y F ?Client ID: [id number] SS#: ? Clinician: DULUDE CNM, SAMANTHA ?? Location: [facility] ??Copy to: ?? Specimen: ?Pap Smear (One Slide) ? Source: Cervix/Endocervix ?Collected: 06/14/99 ? Received: 06/16/1999 ?LMP: 05/30/99 ? Hormone Therapy: No ? : No ? Radiation Therapy: No ?? Post : No ?Chemotherapy: No ?IUD: No ? Prev Abnormal Pap: No ?? Clinical Hx: ?(Blank ruiz indicate information not provided on requisition) SPECIMEN ADEQUACY: ? Satisfactory For Evaluation ?? GENERAL CATEGORIZATION: ? BENIGN CELLULAR CHANGES ?? DESCRIPTIVE DIAGNOSIS: ? Predominance Of Coccobacilli Present Consistent With A Shift In ? Vaginal Natali ? Reviewed And Electronically Signed By: ? Leonarda Leach, CT(ASCP) ? Report Date: ?? 06/22/1999 [employer] Archived Tests - Final Diagnosis Text Field: Clinical History : ? Document reviewed and electronically signed by: ? Conversion ? Report Date: ??06/22/1999 00:00 End of Report [facility] 06/16/1999 13:3 3 EDT 06/16/1999 13:34 EDT Samantha Dulude CNM PATHOLOGY ORDERABLES Performing Organization Address City/State/[facility] Co de Phone Number [facility] [address] [place] [address] documented in this encounter Visit Diagnoses Not on filedocumented in this encounter
--- OUTSIDE RECORDS SUMMARY | 2023-09-21 02:14 | XMS_ITS | Encounter Summary ---
Author Organization [facility] Address [address] [place] [address] Care Team Providers Care It Quality Assurance Analyst Name Role Phone Ramona Melgar Primary Care Provider [phone] Encounter Details Date Type Department Care Team (Late st Contact Info) Description 07/23/2020 Lab [facility] Pathology & Laboratory Medicine - [address] [address] Lalita Molina PA [address] [place] [address] [place] [address] Encounter for other general examination Social History Tobacco Use Types Packs/Day Years [...] Procedure Name Priority Date/Time Associated Diagnosis Comments PAP TEST Today 07/23/2020 14:11 EDT HPV DNA DETECTION WITH GENOTYPING, PCR Today 07/23/2020 14:11 EDT documented in this encounter Results * HUMAN PAPILLOMAVIRUS (HPV) DETECTION-HIGH RISK TYPES (07/23/2020 14:11 EDT) HPV other High Risk types, PCR Negative Negative 07/30/2020 14:40 EDT [facility] Comment:No E6 or E7 mRNA is detected from HPV types 16,18,31,33,35,39,45,51,52,56,58,59,66, and 68 by swing ride operator mediated amplification. Papanicolaou smear specimen (specimen) CERVIX UTERI STRUCTURE / Unknown 07/23/2020 14:11 EDT 07/29/2020 12:54 EDT Lalita GOODE MICROBIOLOGY - G ENERAL ORDERABLES [facility] [address] [place] [address] * PAP TEST (07/23/2020 14:11 EDT) Specimens A. Cervix and/or Endocervix , ThinPrep Imaging System with Manual Evaluation 07/30/2020 14:40 T [facility] Specimen Adequacy Satisfactory for Evaluation - assessment of transformation zone component not applicable ( e.g. atrophy, vaginal sample, hysterectomy) Scant squamous epithelial component 07/30/2020 14:40 T [facility] General Categorization Negative for intraepithelial lesion or malignancy 07/30/2020 14:40 [facility] Attestation . 07/30/2020 14:40 [facility] at 1440 Clinical History Clinical History, Signs, Symptoms, Chief Complaint, Pertaining to This Order: See below Last Menstral Period: 03.12.2000 07/30/2020 14:40 EDT [facility] HPV The result for the Human Papillomavirus (HPV) Detection-High Risk Types is Negative. No E6 or E7 mRNA is detected from HPV types 16,18,31,33,35,39 ,45,51,52,56,58,5 9,66, and 68 by swing ride operator mediated amplification.Dariana ting was performed on specimen [id number] and was resulted on 07/30/2020 1435 EDT by AMBER, LAB INSTRUMENT RESULTS IN 07/30/2020 14:40 EDT [facility] Performing Lab [facility] 07/30/2020 14:40 EDT [facility] Scanned Images 07/30/2020 14:40 EDT [facility] Papanicolaou smear specimen (specimen) CERVIX UTERI STRUCTURE / Unknown 07/23/2020 14:11 EDT 07/26/2020 13:22 EDT Lalita GOODE PATHOLOGY ORDERA BLES [facility] [address] [place] [address] documented in this encounter Visit Diagnoses Diagnosis Encounter for other general examination documented in this encounter Care Teams It Quality Assurance Analyst Relationship Specialty Start Date End Date Ramona Melgar [address] [place] [address] [place] [phone] PCP - General 09/16/18 documented as of this encounter
--- OUTSIDE RECORDS SUMMARY | 2023-09-21 02:14 | XMS_ITS | Encounter Summary ---
Author Organization [facility] Address [address] [place] [address] Care Team Providers Care Automotive Parts Salesperson Name Role Phone Ramona Melgar Primary Care Provider [phone] Reason for Visit * Reason Comments Eye Problem Return in about 6 mo nths OCT Macular for BMVO, RE right eye. Vision seems better right eye, same left. Denies pain, flashes, no floaters. Encounter Details Date Type Department Care Team (Late st Contact Info) Description 09/18/2018 12:45 EDT Office Visit [facility] Ophthalmology - [address] [address] Nils Owen MD [address] [facility], [address] [place] [address] Social History Tobacco Use Types [...] Progress Notes * Nils Owen MD - 09/18/2018 1245 EDT Chief Complaint Patient presents with ??? Eye Problem Return in about 6 months OCT Macular for BMVO, RE right eye. Vision seems better right eye, same left. Denies pain, flashes, no floaters. HPI Location: Right eye Pain: 0 - No pain Quality: Blurry Severity: Mild Duration: Months Timing: Constant Lasts: Continuous Context: Return in about 6 months OCT Macular for BMVO, RE right eye. Modifying factors: Doesn't currently take any drops Associated Signs & Symptoms: Vision seems better right eye, same left. Denies pain, flashes, nofloaters. Visual Fluctuations: None Attestation: BRVO Vision blur both eyes, mild improved with glasses months constant no pain no new F.F Base Eye Exam Visual Acuity (Snellen - Linear) Right Left Dist cc 20/20 -2 20/20 Correction: Glasses Tonometry (Applanation, 12:44) Right Left Pressure 18 18 Pupils Dark Light Right 3 2 Left 3 2 Visual Carmichael Right Left Full Full Extraocular Movement Right Left Full Full, slight LHT Neuro/Psych Oriented x3: Yes Mood/Affect: Normal Dilation Both eyes: 2.5% Phenylephrine, 0.5% Mydriacyl @ 12:44 Slit Lamp and Fundus Exam External Exam Right Left External Normal Normal Slit Lamp Exam Right Left Lids/Lashes Normal Normal Conjunctiva/Sclera White and quiet White and quiet Cornea Clear Clear Anterior Chamber Deep and quiet Deep and quiet Iris Round and reactive Round and reactive Lens Nuclear sclerosis, 1+ Posterior subcapsular cataract Posterior chamber intraocular lens, 1+ Posterior capsular opacification Vitreous Normal Normal Fundus Exam Right Left Disc Normal Normal C/D Ratio 0.3 0.3 [address] MA's ST no RE Normal Vessels AV nicking attenuation Periphery Normal Normal Imaging: OCT REPORT Indications: RE Findings: Right Eye Left Eye Normal Normal Original test to be found in patients shadow chart Impression: 1. Nuclear senile cataract of right eye 2. Pseudophakia of left eye 3. 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 Hypertension, unspecified type Plan: BRVO right eye No edema Compensated with residual microvascular changes Observe HTN Controlled with minimal HTN retinopathy Stressed good BP control Observe PCIOL left eye Pt has well placed IOL(s) and natural lens of eye has been removed. There is no anterior segment inflammation. Positioning of selvin(s) is good. Patient reassured. Increased risk RD post lensectomy /IOL Spoke with Jose Alberto Ramirez and cautioned them to notice any [...] side vision occurring in the affected eye. NSC right eye Jose Alberto Ramirez was instructed that she has a cataract, but the cataract is not severe enough to require surgery at this time. Recommend avoiding CE with IOL due to hx of vascular occlusion. Comment Stable BRVO right eye Return as needed or if symptoms worsen or fail to improve See Dr Zeng as scheduled I, Dr. Owen, have performed my own HPI and reviewed the tech's ROS. I have also reviewed the patient's past medical, family, social and surgical history, as well as the patient's medications, allergies, and problem list. I am scribing for Dr. Nils Owen MD while he is personally performing the service. Lizz ANDRES (Scribe) * Nils Owen MD - 09/18/2018 0000 EDT [facility] OPHTHALMOLOGY September 18, 2018 Britta Zeng [facility] [address] [place] [address] RE: JOSE ALBERTO RAMIREZ : 1955 Dear Britta: Jose Alberto Ramirez was seen today. As you know, she is a hypertensive lady that is on blood pressure medicines at this point with good control. She has had a branch macular vein occlusion previously with macular edema, which improved under the influence of her hypertension control. The pertinents today include: 1. Microvasculopathy superotemporal to fovea in right eye without macular edema, consistent with a compensated vein occlusion. 2. The patient does have some arteriolar narrowing and AV nicking, consistent with mild hypertensive retinopathy. I have encouraged the patient to continue best efforts at blood pressure control withher family doctor. 3. She has a nicely placed PC implant, left. 4. She has a nuclear sclerotic and PSC cataract the right eye (seeing 20/20 with your new refraction). I have encouraged her to avoid cataract surgery given #1 her good acuity, and #2 the fact that the vein occlusion might be exacerbated by a cataract surgery. I would not be surprised if eventuallyat some point in her life she needs cataract surgery, but I do not think the time is right at this j uncture. I have suggested the patient see me again in a year and follow up with you as per your office's recommendations. Britta, The patient and I have decided that she is stable enough that we are going to get her back to you for ongoing care with the understanding that you will send her down to me if you feel like she is getting worse in any way. 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 Alternate therapy 09/18/2018 budesonide-formoterol HFA (SYMBICORT) 160-4.5 mcg/actuation HFA aerosol inhaler inhaler Inhale 1 Puff as directed 2 times daily. Alternate therapy 09/18/2018 ALBUTEROL SULFATE (PROAIR HFA INHALATION) Inhale 1 Puff as directed. Alternate therapy 09/18/2018 documented as of this encounter Eye Exam Visual Acuity (Snellen - Linear) Right eye Left eye Dist cc 20/20 -2 20/20 Correction: Glasses Tonometry (Applanation, 12:44) Right eye Left eye Pressure 18 18 Pupils Dark Light Right eye 3 2 Left eye 3 2 Visual Carmichael Right eye Left eye Full Full Extraocular Movement Right eye Left eye Full Full, slight LHT Neuro/Psych Oriented x3: Yes Mood/Affect: Normal Dilation Both eyes: 2.5% Phenylephrin e, 0.5% Mydriacyl @ 12:44 External Exam Right eye Left eye External Normal Normal Slit Lamp Exam Right eye Left eye Lids/Lashes Normal Normal Conjunctiva/Sclera White and quiet White and sahil et Cornea Clear Clear Anterior Chamber Deep and quiet Deep and quiet Iris Round and reactive Round and tiffany ctive Lens Nuclear sclerosis, 1 + Posterior subcapsular cataract Posterior chamber intraocular lens, 1+ Posterior capsular opacification Vitreous Normal Normal Fundus Exam Right eye Left eye Disc Normal Normal C/D Ratio 0.3 0.3 Macula Few MA's ST no RE Normal Vessels AV nicking attenuation Periphery Normal Normal Care Teams Automotive Parts Salesperson Relationship Specialty Start Date End Date Ramona Melgar [address] [place] [address] [place] [phone] PCP - General 09/16/18 documented as of this encounter
--- OUTSIDE RECORDS SUMMARY | 2023-09-21 02:14 | XMS_ITS | Encounter Summary ---
Author Organization [facility] Address [address] [place] [address] Care Team Providers Care Post Hole Digger Name Role Phone Linda Khan PLANT PATHOLOGIST Primary Care Provider [phone] Reason for Referral * (Routine) - New Request Specialty Diagnoses / Procedures Referred By Zackery daniels Referred To Contact Diagnoses BRVO (branch retinal vein occlusion) Retinal edema Procedures OCT (OPHTHALMIC DIGITAL IMAGING, POSTERIOR SEGMENT) Nils Owen MD [address] [place] [id number] Referral ID Status Reason Start Date Expiration Date V isits Requested Visits Authorized [id number] New Request 05/09/2017 1 1 Reason for Visit * Reason Comments Eye Problem NPV- BRVO with ME ri ght eye Encounter Details Date Type Department Care Team (Late st Contact Info) Description 05/08/2017 12:45 EST Office Visit [facility] Ophthalmology [id number] [place] [address] Nils Owen MD [address] [place] [phone] Social History Tobacco Use Types Packs/Day Years Used Date Smoking Tobacco: Light Smoker Cigarettes Smokeless Tobacco: Never Sex and Gender Information Value Date Recorded Sex Assigned at Not on file Gender Identity Not on file Sexual Orientation Not on file documented as of this encounter Last Filed Vital Signs Vital Sign Reading Time Taken Comments Blood Pressure 162/94 05/08/2017 1259 EST Pulse - - Temperature - - Respiratory Rate - - Oxygen Saturation - - Inhaled Oxygen Concentration - - Weight - - Height - - Body Mass Index - - documented in this encounter Patient Instructions * Patient Instructions* Raudel Thomason - 05/08/2017 12:[address] Hardy May 22, 2017 @ 1pm documented in this encounter Progress Notes * Nils Owen MD - 05/08/2017 1245 EST Chief Complaint Patient presents with ??? Eye Problem NPV- BRVO with ME right eye HPI Location: Right eye Pain: 0 - No pain Quality: Blurry Severity: Mild Duration: Months Timing: Constant Lasts: Continuous Context: NPV-BRVO with ME right eye Modifying factors: no drops Associated Signs & Symptoms: Vision blur right eye for the past few months and stable left eye.No pain No F/F Visual Fluctuations: Attestation: NPV. Blurry VA right eye/moderate. For months. Constant. No F and F. No pain. Hx of Cataract Sx left eye. Base Eye Exam Visual Acuity (Snellen - Linear) Right Left Dist cc 20/50 20/20 Dist ph cc 20/30 Correction: Glasses Tonometry (Applanation, 13:18) Right Left Pressure 17 17 Pupils Pupils Right PERRL Left PERRL Visual Carmichael Right Left Result Full Full Checked by Dr Owen. Extraocular Movement Right Left Result Full Full Neuro/Psych Oriented x3: Yes Mood/Affect: Normal Dilation Both eyes: 1.0% Mydriacyl, 2.5% Phenylephrine @ 13:18 Slit Lamp and Fundus Exam Slit Lamp Exam Right Left Lids/Lashes Normal Normal Conjunctiva/Sclera White and quiet White and quiet Cornea Clear Clear Anterior Chamber Deep and quiet Deep and quiet Iris Round and reactive Round and reactive Lens 2+ Nuclear sclerosis Posterior chamber intraocular lens; PCO Fundus Exam Right Left C/D Ratio 0.35 Macula Couple of Heme above fovea. looks good Vessels Normal Periphery S/T d+ b heme/BRVO; CWS Normal OCT REPORT Indications: Retinal Edema./ BRVO Findings: Right Eye Left Eye Retinal Thickening increased. Cyst. Normal Original test to be found in patients shadow chart Impression: 1. BRVO (branch retinal vein occlusion) 2. Retinal edema 3. Secondary hypertension 4. Nuclear senile cataract of right eye 5. Pseudophakia of left eye 6. Aphakia of eye, left Assess/Plan: BRVO with mild edema, right eye S/T d + b heme Couple of CWS,right eye Jose Alberto Ramirez was informed that a mild branch retinal vein occlusion is present. The alteration in vision is not severe enough that I consider her a candidate for intervention. I told her that one of three things may happen: vision may get better, it may get worse, or it may stay the same. Jose Alberto understands that follow-up is necessary to monitor the course of the problem and that without follow-up, the vision may deteriorate and cause permanent loss of vision that might otherwise be prevented. HTN Recommended to set up appt with PCP to follow NS Cataract,right eye Jose Alberto Ramirez was instructed that she has a cataract, but the cataract is not severe enough to require surgery at this time. Pseudophakia/Aphakia left eye Pt has well placed IOL(s) and natural lens of eye has been removed. There is no anterior segment inflammation. Positioning of selvin(s) is good. Patient reassured. Observe F/U next month for IVFA/Photos Acute Phase right eye first. This office note has been dictated. Letter to Dr Zeng and Linda Hardy I, Dr. Owen, have performed my own HPI and reviewed the tech's ROS. I have also reviewed the patient's past medical, family, social and surgical history, as well as the patient's medications, allergies, and problem list. I am scribing for Dr. Nils Owen MD while he is personally performing the service. KRYSTAL Flores (Scribe) * Nils Owen MD - 05/08/2017 0000 EST [facility] OPHTHALMOLOGY May 08, 2017 Britta Zeng [facility] [address] [place] [address] RE: JOSE ALBERTO RAMIREZ : 1955 Dear Britta: Jose Alberto Ramirez was seen today at your request, Britta. She has a history of hypertension. She feels this is under fairly good control. On a recent examination by you, Britta, you noted evidence of a branch macular vein occlusion in the superonasal macula. The patient really was not aware of any particular problems with her vision. She has been noted to have a cataract extraction in the left eye, but not really had not thought that her vision was getting worse in the right eye. She is not having anypain or new flashes or floaters. Her blood pressure today was 162/94. Visual acuities pinhole to 20/30 right and saw 20/20 left. Intraocular pressures were 17 in both. I have evaluated the following things in both eyes, confrontations visual carmichael to count fingers, extraocular movements and eyes in primary position and these are all normal. (Normal confrontation visual carmichael means visual carmichael are full to count fingers in all six carmichael. Extraocular movements normal means movements were full and concomitant. Eyes normal in primary position means eyes are stra ight in primary position.) I have examined the following ophthalmic exam components for this patient, inspection of bulbar andpalpebral conjunctivae, ocular adnexa, which includes the lids, lacrimal glands, lacrimal drainage,orbits and preauricular lymph nodes, examination of pupils including shape, reaction and size, morphology not done due to mydriasis, irises were examined, presence or absence of rubeosis, corneal exam including epithelium, stroma, endothelium and tear film, anterior chambers including depth, cells and flare, lens exam including clarity, anterior and posterior capsule, cortex and nucleus. The above are all normal both eyes except nuclear sclerosis right and PC implant left. Extended ophthalmoscopy, left, with 90 diopter lens and indirect ophthalmoscopy reveals indication=BRVO evidence of a branch macular vein occlusion with some mild edema in the superior juxta central area. A single cotton-wool spot is noted, and a few intraretinal hemorrhages are present. The fellow eyehad an unremarkable disc, macula, vessels and periphery. Assessment: 1. Branch retinal vein occlusion with minimal macular edema. 2. Hypertension. Linda, I am asking you to reassess Ms Ramirez given her high blood pressure reading today. Hypertension is a major driving factor in venous occlusive disease in the retina. Please try to optimize her blood pressure. I will plan to see her back in a month or so, at which time we will reassess and do fluorescein angiography. The patient may be a candidate for intravitreal anti-VEGF drugs. I will plan to see her again as noted above. Thanks so much for letting me take part in her care. With best personal regards, Nils Owen MD 03 20 PM - Nils Owen MD en Dictation ID: [id number] cc: Linda MELENDREZP, [address] [place] [address] Britta Baumandenise OD, [address], [place] [address] documented in this encounter Plan of Treatment Scheduled Orders Name Type Priority Associated Diagnoses Orde r Schedule OCT (OPHTHALMIC DIGITAL IMAGING, POSTERIOR SEGMENT) Ophthalmology Routine Brvo (Branch Retinal Vein Occlusion) Retinal edema Ordered: 05/09/2017 documented as of this encounter Visit Diagnoses Diagnosis BRVO (branch retinal vein occlusion)- Primary Retinal edema Secondary hypertension Other secondary hypertension, unspecified Nuclear senile cataract of right eye Pseudophakia of left eye Lens replaced by other means Aphakia of eye, left documented in this encounter Eye Exam Visual Acuity (Snellen - Linear) Right eye Left eye Dist cc 20/50 20/20 Dist ph cc 20/30 Correction: Glasses Tonometry (Applanation, 13:18) Right eye Left eye Pressure 17 17 Pupils Pupils Right eye PERRL Left eye PERRL Visual Carmichael Right eye Left eye Full Full Checked by Dr Owen. Extraocular Movement Right eye Left eye Full Full Neuro/Psych Oriented x3: Yes Mood/Affect: Normal Dilation Both eyes: 1.0% Mydriacyl, 2 .5% Phenylephrine @ 13:18 Slit Lamp Exam Right eye Left eye Lids/Lashes Normal Normal Conjunctiva/Sclera White and quiet White and sahil et Cornea Clear Clear Anterior Chamber Deep and quiet Deep and quiet Iris Round and reactive Round and tiffany ctive Lens 2+ Nuclear sclerosis Posterior c hamber intraocular lens; PCO Fundus Exam Right eye Left eye C/D Ratio 0.35 Macula Couple of Heme above fovea. look s good Vessels Normal Periphery S/T d+ b heme/BRVO; CWS Normal Care Teams Post Hole Digger Relationship Specialty Start Date End Date Linda Khan, HERMES PCP - General 04/19/17 02/12/18 documented as of this encounter
--- OUTSIDE RECORDS SUMMARY | 2023-09-21 02:14 | XMS_ITS | Encounter Summary ---
Author Organization [facility] Address [address] [place] [address] Care Team Providers Care Academic Affairs Director Name Role Phone Unavailable Primary Care Provider Unavailabl e Encounter Details Date Type Department Care Team (Late st Contact Info) Description 08/29/2001 Results Only [facility] [place] [facility] [place] conversion [address] [place] [address] Samantha Abreu CNM Social History Tobacco Use [...] Priority Date/Time Associated Diagnosis Comments CYTOPATHOLOGY Routine 08/29/2001 0:00 EDT documented in this encounter Results * CYTOPATHOLOGY (08/29/2001 0:00 EDT) Pathology Report: CYTOPATHOLOGY REPORT Reports generated via electronic interface contain original data; however they are lacking the format of the original report. Caution should be taken when reading/interpreti ng unformatted reports. Name: ? JOSE ALBERTO RAMIREZ ? Accession #: ? [id number] : ? 1955 (Age: 46) ??F ?Collect Date: ? 08/29/2001 Location: ? [facility] ? Receive Date: ? 09/02/2001 Provider: ?SAMANTHA ABREU CNM Copy to: ? Specimen/Source: ?ThinPrep Pap Test, Cervix/Endocervix Last Menstrual Period: ? 08/20/01 Other: ? HPVA - HPV testing requested if ASC-US on the current ThinPrep Pap test. ? SPECIMEN ADEQUACY ? Satisfactory for Evaluation - transformation zone component present GENERAL CATEGORIZATION ? Negative for Intraepithelial Lesion or Malignancy ? Document reviewed and electronically signed by: ? CHET Tatum(ASCP) ? Report Date: ??09/04/2001 12:16 End of Report [facility] 08/29/2001 09/02/2001 Samantha Abreu CNM PATHOLOGY ORDERABLES [facility] [address] [place] [address] documented in this encounter Visit Diagnoses Not on filedocumented in this encounter
--- OUTSIDE RECORDS SUMMARY | 2023-09-21 02:14 | XMS_ITS | Encounter Summary ---
Author Organization [facility] Address [address] [place] [address] Care Team Providers Care Chemical Test Engineer Name Role Phone Unavailable Primary Care Provider Unavailabl e Encounter Details Date Type Department Care Team (Late st Contact Info) Description 09/04/2002 Results Only [facility] [place] conversion [address] [place] [address] Ming Berman, SLATE HANDLER Social History Tobacco Use Types Packs/Day Years Used Date Smoking Tobacco: Never Assessed Sex and Gender Information Value Date Recorded Sex Assigned at Not on file Gender Identity Not on file Sexual Orientation Not on file documented as of this encounter Plan of Treatment Not on file documented as of this encounter Procedures Procedure Name Priority Date/Time Associated Diagnosis Comments CYTOPATHOLOGY Routine 09/04/2002 0:00 EDT documented in this encounter Results * CYTOPATHOLOGY (09/04/2002 0:00 EDT) Pathology Report: CYTOPATHOLOGY REPORT Reports generated via electronic interface contain original data; however they are lacking the format of the original report. Caution should be taken when reading/interpreti ng unformatted reports. Name: ? JOSE ALBERTO RAMIREZ ? Accession #: ? [id number] : ? 1955 (Age: 47) ??F ?Collect Date: ? 09/04/2002 Location: ? [facility] ? Receive Date: ? 09/08/2002 Provider: ?MING BERMAN APRN Copy to: ? Specimen/Source: ?ThinPrep Pap Test, Cervix/Endocervix Last Menstrual Period: ? 08/18/02 Other: ? HPVA - HPV testing requested if ASC-US on the current ThinPrep Pap test. ? SPECIMEN ADEQUACY ? Satisfactory for Evaluation - transformation zone component present GENERAL CATEGORIZATION ? Negative for Intraepithelial Lesion or Malignancy ? Document reviewed and electronically signed by: ? Taurus Murcia, [place](ASCP) ? Report Date: ??09/11/2002 12:39 End of Report [facility] 09/04/2002 09/08/2002 Ming Berman SLATE HANDLER PATHOLOGY ORDER JAMAL [facility] [address] [place] [address] documented in this encounter Visit Diagnoses Not on filedocumented in this encounter
--- OUTSIDE RECORDS SUMMARY | 2023-09-21 02:14 | XMS_ITS | Encounter Summary ---
Author Organization [facility] Address [address] [place] [address] Care Team Providers Care Alumina Plant Supervisor Name Role Phone Unavailable Primary Care Provider Unavailabl e Encounter Details Date Type Department Care Team (Latest Contact Info) Description 01/04/2006 19:16 EDT Hospital Encounter [facility] - Other [address] [place] [address] Katarina Reyes, OPERATIONS AND MAINTENANCE TECHNICAN Discharge Disposition: Home or Self Care Social History Tobacco Use Types Packs/Day Years Used Date Smoking Tobacco: Never Assessed Sex and Gender Information Value Date Recorded Sex Assigned at Not on file Gender Identity Not on file Sexual Orientation Not on file documented as of this encounter Discharge Disposition Disposition Code Departure Means Destination Home or Self Care documented in this encounter Plan of Treatment Pending Results Name Type Priority Associated Diagnoses Date /Time CYTOPATHOLOGY Pathology Routine 03/29/2009 0:00 EST CYTOPATHOLOGY Pathology Routine 03/29/2009 0:00 EST Scheduled Orders Name Type Priority Associated Diagnoses Orde r Schedule CYTOPATHOLOGY Pathology Routine For medicat ions that can be administered at any time during the hospitalization for visit such as immunizations. for 1 Occurrences starting 03/31/2009 CYTOPATHOLOGY Pathology Routine For medicat ions that can be administered at any time during the hospitalization for visit such as immunizations. for 1 Occurrences starting 03/31/2009 documented as of this encounter Procedures Procedure Name Priority Date/Time Associated Diagnosis Comments CYTOPATHOLOGY Routine 03/29/2009 0:00 EST HPV DETECTION, HIGH RISK TYPES Routine 01/04/2006 22:51 EDT documented in this encounter Results * CYTOPATHOLOGY (03/29/2009 0:00 EST) Pathology Report: CYTOPATHOLOGY REPORT ? Reports generated via electronic interface contain original data; ? however they are lacking the format of the original report. ? Caution should be taken when reading/interpreti ng unformatted reports. ? Name: ? JOSE ALBERTO RAMIREZ ? Accession #: ? [id number] ? : ? 1955 (Age: 54) ??F ?Collect Date: ? 03/29/2009 ? Location: ? [facility] ? Receive Date: ? 03/31/2009 ? Provider: ?FLAVIA SNOW OPERATIONS AND MAINTENANCE TECHNICAN ? Copy to: ? Specimen/Source: ?Pap Test, Cervix, ThinPrep Imaging System with manual ?? evaluation ? Last Menstrual Period: ? Other: ? Additional clinical information: , ? SPECIMEN ADEQUACY ? Satisfactory for Evaluation ? - transformation zone component present ? GENERAL CATEGORIZATION ? Negative for Intraepithelial Lesion or Malignancy ? INTERPRETATION ? Reactive cellular changes associated with inflammation present (includes ?? repair). ? Document reviewed and electronically signed by: ? JAVED MOUNT MD ? Report Date: ??04/05/2009 13:11 ? End of Report ? [facility] 03/29/2009 03/31/2009 Flavia Brooks APRN PATHOLOGY ORDERABLES [facility] [address] [place] [address] * HUMAN PAPILLOMA VIRUS DNA TEST (01/04/2006 22:51 EDT) Specimen Description Cervix, ThinPrep vial [facility] Result Quantity not sufficient. [facility] Report Status Final [id number] [facility] 01/04/2006 22:5 1 EDT 01/09/2006 22:51 EST Katarina Reyes APRN MICROBIOLOGY - GENERAL ORDERABLES Performing Organization Address City/State/[facility] Co de Phone Number [facility] [address] [place] [address] documented in this encounter Visit Diagnoses Not on filedocumented in this encounter
--- OUTSIDE RECORDS SUMMARY | 2023-09-21 02:14 | XMS_ITS | Encounter Summary ---
Author Organization [facility] Address [address] [place] [address] Care Team Providers Care Plating Engineer Name Role Phone Ramona Melgar Primary Care Provider [phone] Encounter Details Date Type Department Care Team (Late st Contact Info) Description 08/14/2019 Lab Requisition [facility] Pathology & Laboratory Medicine - [address] [address] Outr Resulting Lab, Provider Social History Tobacco [...] Procedure Name Priority Date/Time Associated Diagnosis Comments ANTI NUCLEAR AB (GIL), IFA Routine 08/14/2019 8:39 EDT documented in this encounter Results * (ABNORMAL) ANTI NUCLEAR AB (GIL), IFA (08/14/2019 8:39 EDT) GIL Interpretation Positive(A) Negative 08/18/2019 15:00 EDT [facility] Comment: For titers greater than or equal to 1:160 (except the centromere and nucleolar patterns) it is recommended that specific follow-up autoantibody testing ??(such as for dsDNA and Extractable Nuclear Antigens) be performed on all diffuse and/or speckled patterns NOTE: For add-on testing dsDNA is stable for 7 days refrigerated while Extractable Nuclear Antigens are only stable for 48 hours refrigerated. GIL Titer and Pattern 1 1:320 Homogeneous 08/18/2019 15:00 EDT [facility] GIL Titer and Pattern 2 1:640 Nuclear Dots 08/18/2019 15:00 EDT [facility] Blood VENOUS BLOOD / Unknown 08/14/2019 8:39 EDT 08/14/2019 22:09 EDT Narrative [facility] - 08/18/2019 15:00 EDT Results were obtained with the INOVA NOVA Lite HEp-2 GIL Kit by indirect immunofluorescence. Provider Outr Resulting Lab IMMUNOLOGY A ND SEROLOGY ORDERABLES [facility] [address] [place] [address] documented in this encounter Visit Diagnoses Not on filedocumented in this encounter Care Teams Plating Engineer Relationship Specialty Start Date End Date Ramona Melgar [address] [place] [address] [place] [address] PCP - General 09/16/18 documented as of this encounter
--- OUTSIDE RECORDS SUMMARY | 2023-09-21 02:14 | XMS_ITS | Encounter Summary ---
Author Organization [facility] Address [address] [place] [address] Care Team Providers Care Analog Circuit Designer Name Role Phone Ramona Melgar Primary Care Provider Encounter Details Date Type Department Care Team (Late st Contact Info) Description 01/25/2019 Lab Requisition [facility] Pathology & Laboratory Medicine - [address] [address] Unknown, Provider, Social History Tobacco Use Types Packs/Day Years [...] Procedure Name Priority Date/Time Associated Diagnosis Comments FECAL BACTERIAL PATHOGENS BY PCR Routine 01/25/2019 9:25 EST OVA/PARASITE EXAM Routine 01/25/2019 9:25 EST documented in this encounter Results * OVA/PARASITE EXAM (01/25/2019 9:25 EST) Parasite No ova and parasites seen. 01/27/2019 13:40 EST [facility] Feces FECES / Unknown 01/25/2019 9 :25 EST 01/26/2019 16:35 EST Narrative [facility] - 01/27/2019 13:40 EST (If Cryptosporidium, Cyclospora, or Microsporidium are suspected, specific tests must be requested.) Single negative specimen does not rule out the possibility of a parasitic infection. Provider Unknown MICROBIOLOGY Ghada HOOD AL ORDERABLES Performing Organization Address [facility] Co de Phone Number [facility] [address] [place] [address] * FECAL BACTERIAL PATHOGENS BY PCR (01/25/2019 9:25 EST) Salmonella PCR Negative Negative 01/27/2019 11:22 EST [facility] Shigella/Enteroin vasive E. coli Negative Negative 01/27/2019 11:22 EST [facility] CAMPYLOBACTER PCR Negative Negative 01/27/2019 11:22 EST [facility] Shiga Toxin PCR Negative Negative 9 11:22 EST [facility] Feces FECES / Unknown 01/25/2019 9 :25 EST 01/26/2019 16:35 EST Provider Unknown MICROBIOLOGY Ghada PHILLIP ORDERABLES Performing Organization Address [facility] de Phone Number [facility] [address] [place] [address] documented in this encounter Visit Diagnoses Not on filedocumented in this encounter Care Teams Analog Circuit Designer Relationship Specialty Start Date End Date Ramona Melgar [address] [place] [address] [place] [id number] PCP - General 09/16/18 documented as of this encounter
--- OUTSIDE RECORDS SUMMARY | 2023-09-21 02:14 | XMS_ITS | Encounter Summary ---
Author Organization [facility] Address [address] [place] [address] Care Team Providers Care Quick Print Operator Name Role Phone Linda Khan SURFACE MOUNT TECHNOLOGY OPERATOR Primary Care Provider [phone] Reason for Visit * Reason Onset Date Comments Other 06/12/2017 Encounter Details Date Type Department Care Team (Late st Contact Info) Description 06/12/2017 Telephone [facility] [place] [id number] [place], [place] [phone] Nils Owen MD [address] [facility] [address] [place] [address] Other Social History Tobacco Use Types Packs/Day Years Used Date Smoking Tobacco: Light Smoker Cigarettes Smokeless Tobacco: Never Alcohol Use Standard Drinks/Week Comments Yes 0 (1 standard drink = 0.6 oz pur e alcohol) occasional Sex and Gender Information Value Date Recorded Sex Assigned at Not on file Gender Identity Not on file Sexual Orientation Not on file documented as of this encounter Miscellaneous Notes * Telephone Encounter - Raudel Thomason - 06/12/2017 1235 EDT After speaking to Dr. Owen we are just going to continue to monitor patient. She needs to keep her 07/10/17 appointment and we will re-evaluate at that appointment. I called and spoke to Leah yovani johnathon be her on 07/10/17. * Telephone Encounter - Ulisses Muñiz RN - 06/12/[address] Owen's note on 05/26/17: Branch macular vein occlusion right eye with mild edema Discussed BP control Discussed observation vs intravit injection-will discuss with BK * Telephone Encounter - Deirdre Guevara - 06/12/2017 1153 EDT Patient called stating she was to call today if she hadn't heard from Dr. Owen. She hasn't heard from Dr. Owen, so she is calling. Dr. Owen was supposed to speak with Dr. Soriano and call the patient with an update. She is requesting a return call. Her next visit is currently scheduled for 07/10/[address] Owen. documented in this encounter Plan of Treatment Not on file documented as of this encounter Visit Diagnoses Not on filedocumented in this encounter Care Teams Quick Print Operator Relationship Specialty Start Date End Date Linda Khan NP PCP - General 04/19/17 02/12/18 documented as of this encounter
--- OUTSIDE RECORDS SUMMARY | 2023-09-21 02:14 | XMS_ITS | Encounter Summary ---
Author Organization [facility] Address [address] [place] [address] Care Team Providers Care Care Center Manager Name Role Phone Ramona Melgar Primary Care Provider [phone] Encounter Details Date Type Department Care Team (Late st Contact Info) Description 11/11/2020 Lab Requisition [facility] Pathology & Laboratory Medicine - [address] [address] Outr Resulting Lab, Provider Social History Tobacco [...] Procedure Name Priority Date/Time Associated Diagnosis Comments ZZCOVID-19 TEST [facility] PCR Today 11/11/2020 14:31 EDT COVID-19 TESTING Routine 11/11/2020 14:3 1 EDT documented in this encounter Results * COVID-19 TEST [facility] PCR (11/11/2020 14:31 EDT) Swab ENTIRE NASOPHARYNX / Unknown 11/11/2020 14:31 EDT 11/11/2020 21:05 EDT Provider Outr Resulting Lab MICROBIOLOGY - GENERAL ORDERABLES [facility] [address] [place] [address] * COVID-19 TESTING (11/11/2020 14:31 EDT) COVID-19 rt-PCR Result Negative Negative 11/12/2020 15:[address] [facility] Comment: This test has not been FDA cleared or approved. This test has been authorized by FDA under an EUA for use by authorized laboratories. This test has been authorized only for detection of nucleic acid from 2019-nCoV, not for any other viruses or pathogens. This test is only authorized for the duration of the declaration that circumstances exist justifying the authorization of emergency use of in vitro diagnostic tests for detection and/or diagnosis of 2019-nCoV under section 564(b)(1) of Act, 21 U.S.C ?? 360bbb-3(b) (1), unless the authorization is terminated or revoked sooner. Negative results do not preclude 2019-nCoV infection and should not be used as the sole basis for treatment or other patient management decisions. Negative results must be combined with clinical observations, patient history, and epidemiological information. Testing was performed using the elvin SARS-CoV-2 assay ([employer] on the Elvin 6800 System Performing Lab Elvin 6800 [facility] 11/12/2020 15:[address] [facility] Swab 11/11/2020 14:3 1 EDT 11/11/2020 21:05 EDT Provider Outr Resulting Lab MICROBIOLOGY - GENERAL ORDERABLES [facility] [address] [place] [address] documented in this encounter Visit Diagnoses Not on filedocumented in this encounter Care Teams Care Center Manager Relationship Specialty Start Date End Date Ramona Melgar [address] [place] [address] [place] [phone] PCP - General 09/16/18 documented as of this encounter
--- OUTSIDE RECORDS SUMMARY | 2023-09-21 02:14 | XMS_ITS | Encounter Summary ---
Author Organization [facility] Address [address] [place] [address] Care Team Providers Care Manager Coding Name Role Phone Linda Khan MOLDER BENCH Primary Care Provider [phone] Reason for Referral * (Routine) - New Request Specialty Diagnoses / Procedures Referred By Zackery daniels Referred To Contact Diagnoses Branch retinal vein occlusion of right eye with macular edema Procedures OCT (OPHTHALMIC DIGITAL IMAGING, POSTERIOR SEGMENT) Nils Owen MD [address] [place] [phone] Referral ID Status Reason Start Date Expiration Date V isits Requested Visits Authorized [id number] New Request 07/11/2017 1 1 Reason for Visit * Reason Comments Eye Problem F/u BMVO w/ retinal edema right eye, NS cataract right eye, PC IOL left eye, va both eyes still not better due to not focusing together, no flashes, no floaters, no pain in eyes but PEREYRA last couple days across forehead and back of head, Encounter Details Date Type Department Care Team (Late st Contact Info) Description 07/10/2017 12:30 EDT Office Visit [facility] Ophthalmology - [address] [place] [address] Nils Owen MD [address] [place] [phone] Social History Tobacco Use Types Packs/Day [...] Progress Notes * Nils Owen MD - 07/10/2017 1230 EDT Chief Complaint Patient presents with ??? Eye Problem F/u BMVO w/ retinal edema right eye, NS cataract right eye, PC IOL left eye, va both eyes still notbetter due to not focusing together, no flashes, no floaters, no pain in eyes but PEREYRA last couple days across forehead and back of head, HPI Location: Right eye Pain: 0 - No pain Quality: Blurry Severity: Mild Duration: Months Timing: Constant Lasts: Continuous Context: F/u BMVO w/ retinal edema right eye, NS cataract right eye, PC IOL left eye, Modifying factors: DFE, OCT, Associated Signs & Symptoms: blurry vision Visual Fluctuations: None Attestation: Vision mildly blurry in the right eye, months, constant, continuous. No eye pain, no flashes or floaters. Here for follow up on mac vein occlusion right eye. Pt c/o H/A across forehead. Blood pressure: A1c: Base Eye Exam Visual Acuity (Snellen - Linear) Right Left Dist cc 20/40 -1 20/20 Dist ph cc 20/20 Correction: Glasses Tonometry (Applanation, 12:56) Right Left Pressure 13 14 Pupils Dark Light React APD Right 4 2.5 Brisk None Left 4 2.5 Brisk None Neuro/Psych Oriented x3: Yes Mood/Affect: Normal Dilation Both eyes: 2.5% Phenylephrine, 1.0% Mydriacyl @ 12:56 Slit Lamp and Fundus Exam External Exam Right Left External Normal Normal Slit Lamp Exam Right Left Lids/Lashes Normal Normal Conjunctiva/Sclera White and quiet White and quiet Cornea Clear Clear Anterior Chamber Deep and quiet Deep and quiet Iris Round and reactive Round and reactive Lens 2+ Nuclear sclerosis Posterior chamber intraocular lens Fundus Exam Right Left Disc Normal Normal Macula vasc changes above fovea, thickening Normal Vessels AV nicking Normal Periphery Normal Normal OCT REPORT Indications: branch mac vein occlusion Findings: Right Eye Left Eye decreased edema since last visit Normal Original test to be found in patients shadow chart Impression: 1. 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 Hypertension, unspecified type 3. Nuclear sclerosis of right eye 4. Pseudophakia, left eye Assessment and Plan: Branch macular vein occlusion right eye Retinal edema improving No intervention at this time Likely secondary to hypertension Hypertension Coming under better control Patient's meds have been increased Mod NSC right eye Jose Alberto Ramirez was instructed that she has a cataract, but the cataract is not severe enough to require surgery at this time. PCIOL left eye Pt has well placed IOL(s) and natural lens of eye has been removed. There is no anterior segment inflammation. Positioning of selvin(s) is good. Patient reassured. Observe Comment: BRVO improving right eye, HTN meds increased and under better control. Follow up 2 months [...] personally performing the service. KRYSTAL Ybarra (Scribe) * Nils Owen MD - 07/10/2017 0000 EDT [facility] OPHTHALMOLOGY July 10, 2017 Britta Zeng [facility] [address] [place] [address] RE: JOSE ALBERTO RAMIREZ : 1955 Dear Britta: Our mutual patient, Jose Alberto Ramirez, was seen today. As you know, she has had a vein occlusion and has recently initiated therapy for her hypertension. Her vision is mildly to moderately depressed in the right eye, has been so for months. She is not having any pain. Nothing is making the vision better or worse. I have examined the following ophthalmic exam [...] are all normal both eyes except nuclear sclerosis, right, and PC implant, left. Funduscopic examination is normal in the left eye. In the right eye, the patient has a mild branch macular vein occlusion with some microvascular changes and thickening in the superior juxtacentral area. On OCT, the patient has some very minimal cystic change, which is extrafoveal. Her thickness has improved somewhat since she was originally seen. Assessment: 1. Vein occlusion, trending better on antihypertensive therapy. We will continue to follow her as her problem is minimal. 2. Nuclear sclerosis, presurgical, right. 3. Well done implant, left. Comment: Vein occlusion is mild and trending better. I think the antihypertensive therapy is probably helping. I will see her again in 2 months or p.r.n. worsening. Sincerely, Nils Owen MD 01 21 PM - Nils Owen MD cn Dictation ID: [id number] cc: Brittacherise Zeng , [address], [place] [id number] documented in this encounter Plan of Treatment Scheduled Orders Name Type Priority Associated Diagnoses Orde r Schedule OCT (OPHTHALMIC DIGITAL IMAGING, POSTERIOR SEGMENT) Ophthalmology Routine Branch Retinal Vein Occlusion Of Right Eye With Macular Edema Ordered: 07/11/2017 documented as of this encounter Visit Diagnoses Diagnosis Branch retinal vein occlusion of right eye with macular edema- Primary Hypertension, unspecified type Nuclear sclerosis of right eye Pseudophakia, left eye Lens replaced by other means documented in this encounter Eye Exam Visual Acuity (Snellen - Linear) Right eye Left eye Dist cc 20/40 -1 20/20 Dist ph cc 20/20 Correction: Glasses Tonometry (Applanation, 12:56) Right eye Left eye Pressure 13 14 Pupils Dark Light React APD Right eye 4 2.5 Brisk None Left eye 4 2.5 Brisk None Neuro/Psych Oriented x3: Yes Mood/Affect: Normal Dilation Both eyes: 2.5% Phenylephrin e, 1.0% Mydriacyl @ 12:56 External Exam Right eye Left eye External Normal Normal Slit Lamp Exam Right eye Left eye Lids/Lashes Normal Normal Conjunctiva/Sclera White and quiet White and sahil et Cornea Clear Clear Anterior Chamber Deep and quiet Deep and quiet Iris Round and reactive Round and tiffany ctive Lens 2+ Nuclear sclerosis Posterior c hamber intraocular lens Fundus Exam Right eye Left eye Disc Normal Normal Macula vasc changes above fovea, thicke [place] Normal Vessels AV nicking Normal Periphery Normal Normal Care Teams Manager Coding Relationship Specialty Start Date End Date Linda Khan NP PCP - General 04/19/17 02/12/18 documented as of this encounter
--- OUTSIDE RECORDS SUMMARY | 2023-09-21 02:14 | XMS_ITS | Encounter Summary ---
Author Organization [facility] Address [address] [place] [address] Care Team Providers Care Disc Pad Grinder Name Role Phone Unavailable Primary Care Provider Unavailabl e Encounter Details Date Type Department Care Team (Late st Contact Info) Description 10/23/2003 Results Only [facility] - [facility] [address] [place] [address] Katarina Reyes APRN Social History Tobacco Use Types Packs/Day [...] Comments HPV DETECTION, HIGH RISK TYPES Routine 10/23/2003 8:32 EDT documented in this encounter Results * HUMAN PAPILLOMA VIRUS DNA TEST (10/23/2003 8:32 EDT) Specimen Description Cervix, ThinPrep vial [facility] Result Negative for HPV types 16, 18, 31, 33, 35, 39, 45, 51, 52, 56, 58, 59, and 68. [facility] Report Status Final [id number] [facility] 10/23/2003 8:32 EDT 10/26/2003 8:32 EDT Katarina Reyes APRN MICROBIOLOGY - GENERAL ORDERABLES [facility] [address] [place] [address] documented in this encounter Visit Diagnoses Not on filedocumented in this encounter
--- OUTSIDE RECORDS SUMMARY | 2023-09-21 02:14 | XMS_ITS | Clinical Summary ---
Author Organization [facility] Address [address] [place] [address] Care Team Providers Care Punch Machine Hand Name Role Phone Ramona Melgar Primary Care Provider [phone] Allergies Active Allergy Reactions Criticality Noted Date [...] eye 06/05/2017 Pseudophakia of left eye 06/05/2017 Surgical History Surgery Date Site/Laterality Comments EYE SURGERY SECTION INTRAOCULAR LENS PROSTHESIS INSERTION CATARACT REMOVAL Medical History Medical History Date Comments Cataract Family History Medical History Relation Comments Glaucoma Neg Hx Macular Degeneration Neg Hx Social History Tobacco Use Types Packs/Day Years [...] on file Sexual Orientation Not on file Obstetrics History Last Filed Vital Signs Vital Sign Reading Time Taken Comments Blood Pressure 162/94 05/08/2017 1259 EST Pulse - - Temperature - - Respiratory Rate - - Oxygen Saturation - - Inhaled Oxygen Concentration - - Weight - - Height - - Body Mass Index - - Plan of Treatment Health Maintenance Due Date Last Done Comments Hepatitis C Screen 1955 RSV Immunization ( o r 60+ Years) (1 - 1-dose 60+ series) 2017 Fall Risk Screening 2022 COVID-19 Vaccine (2022-24 season) 2022 Care Teams Punch Machine Hand Relationship Specialty Start Date End Date Ramona Melgar [address] [place] [address] [place] [phone] PCP - General 09/16/18
[2023-09-21] MEDS: Levalbuterol HFA 15 GM INH 4 PUFF IH (09:11)
[2023-09-21] MEDS: Inhaler, Assist Device 1 EACH MC (09:11)
--- NOTE | 2023-09-24 12:45 | W.PFT ---
Date of service: 09/21/23 Time of Service: 07:59 Pulmonary Function Test Result Requesting Provider Ivone Jensen Indications: COPD Interpretation Spirometry: Normal Impression Normal spirometry with no reversibility after albuterol. Normal flow-volume loop Clinical Correlation therefore is recommended.
== END 2023-09-21 02:12 | disposition home or self-care (01) ==
LOC: RT 02:13
PROVIDERS: PCP Nurse Practitioner Family; Visit Provider Internal Medicine Critical Care Medicine
DX: J44.9 Chronic obstructive pulmonary disease, unspecified (principal)
CPT/HCPCS: 00123; 94060

== ENCOUNTER → 2023-10-11 01:41 | Outpatient (CLI) | payer MEDICARE, MEDICAID, SELFPAY ==
--- OUTSIDE RECORDS SUMMARY | 2023-10-11 01:44 | XMS_ITS | Clinical Summary ---
Author Organization [facility] Address [address] [place] [address] Care Team Providers Care Iron Plastic Bullet Maker Name Role Phone Ramona Melgar Primary Care Provider [phone] Allergies Active Allergy Reactions Criticality Noted Date [...] COVID-19 Vaccine (2022-24 season) 2022 Care Teams Iron Plastic Bullet Maker Relationship Specialty Start Date End Date Ramona Melgar [address] [place] [address] [place] [phone] PCP - General 09/16/18
--- OUTSIDE RECORDS SUMMARY | 2023-10-11 01:44 | XMS_ITS | Encounter Summary ---
Author Organization [facility] Address [address] [place] [address] Care Team Providers Care Development Technical Lead Name Role Phone Linda Khan CUFF RUNNER Primary Care Provider [phone] Reason for Visit * Reason Onset Date Comments Other 06/12/2017 Encounter Details Date Type Department Care Team (Late st Contact Info) Description 06/12/2017 Telephone [facility] [place] [id number] [place], [place] [phone] Nils Owen MD 111 [facility] [address] [place] [address] Other Social History Tobacco Use [...] appointment. I called and spoke to Leah yovnai johnathon be her on 07/10/17. * Telephone [...] on filedocumented in this encounter Care Teams Development Technical Lead Relationship Specialty Start Date End Date Linda Khan NP PCP - General 04/19/17 02/12/18 documented as of this encounter
--- OUTSIDE RECORDS SUMMARY | 2023-10-11 01:44 | XMS_ITS | Encounter Summary ---
Author Organization [facility] Address [address] [place] [address] Care Team Providers Care Stone Decorator Name Role Phone Ramona Melgar Primary Care Provider [phone] Encounter Details Date Type Department Care Team (Late st Contact Info) Description 11/11/[address] [facility] Pathology & Laboratory Medicine - [address] [address] Outr Resulting Lab, Provider Social History Tobacco [...] Outr Resulting Lab MICROBIOLOGY - GENERAL ORDERABLES [facility] [address] [place] [address] * COVID-19 TESTING (11/11/2020 14:31 EDT) COVID-19 rt-PCR Result Negative Negative 11/12/2020 15:18 EDT [facility] Comment: This test has [...] performed using the elvin SARS-CoV-2 assay ([employer] on the Elvin 6800 System Performing Lab Elvin 6800 [facility] 11/12/2020 15:18 EDT [facility] Swab 11/11/2020 14:3 1 EDT 11/11/2020 21:05 EDT Provider Outr Resulting Lab MICROBIOLOGY - GENERAL ORDERABLES [facility] [address] [place] [address] documented in this encounter Visit Diagnoses Not on filedocumented in this encounter Care Teams Stone Decorator Relationship Specialty Start Date End Date Ramona Melgar [address] [place] [address] [place] [phone] PCP - General 09/16/18 documented as of this encounter
--- OUTSIDE RECORDS SUMMARY | 2023-10-11 01:44 | XMS_ITS | Encounter Summary ---
Author Organization [facility] Address [address] [place] [address] Care Team Providers Care Fire Prevention Research Engineer Name Role Phone Ramona Melgar Primary Care Provider Reason for Visit * Reason Comments Eye Problem Return in about 6 mo nths OCT Macular for BMVO, RE right eye. Vision seems better right eye, same left. Denies pain, flashes, no floaters. Encounter Details Date Type Department Care Team (Late st Contact Info) Description 09/18/2018 12:45 EDT Office Visit [facility] Ophthalmology - [address] [address] Nils Owen MD 111 [facility], [address] [place] [address] Social History Tobacco Use Types [...] Owen MD - 09/18/2018 0000 EDT [facility] OPH[facility] September 18, 2018 Britta Zeng [facility] [address] [place] [address] RE: JOSE ALBERTO RAMIREZ : 1955 Dear [...] - Nils Owen MD mn Dictation ID: [id number] cc: Britta Zeng OD, [address] [place] [address] documented in this encounter Plan of Treatment [...] nicking attenuation Periphery Normal Normal Care Teams Fire Prevention Research Engineer Relationship Specialty Start Date End Date Ramona Melgar [address] [place] [address] [place] [phone] PCP - General 09/16/18 documented as of this encounter
--- OUTSIDE RECORDS SUMMARY | 2023-10-11 01:44 | XMS_ITS | Encounter Summary ---
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 Procedures OCT (OPHTHALMIC DIGITAL IMAGING, POSTERIOR SEGMENT) Nils Owen MD [address] [place] [phone] Referral ID Status Reason Start Date Expiration Date V isits Requested Visits Authorized [id number] New Request 07/11/2017 1 1 Reason for [...] Info) Description 07/10/2017 12:30 EDT Office Visit [facility] Ophthalmology - [address] [place] [address] Nils Owen MD [address] [place] [phone] Social History Tobacco Use Types Packs/Day [...] have been increased Mod NSC right eye oJse Alberto Ramirez was instructed that she has [...] Owen MD - 07/10/2017 0000 EDT [facility] OPHTHAL[facility] July 10, 2017 Britta Zeng [facility] [address] [place] [address] RE: JOSE ALBERTO RAMIREZ : 1955 Dear [...] - Nils Owen MD cn Dictation ID: [id number] cc: Brittacherise Zeng , [address], [place] [phone] documented in this encounter Plan of Treatment [...] nicking Normal Periphery Normal Normal Care Teams Fraternity Adviser Relationship Specialty Start Date End Date Linda Khan NP PCP - General 04/19/17 02/12/18 documented as of this encounter
--- OUTSIDE RECORDS SUMMARY | 2023-10-11 01:44 | XMS_ITS | Encounter Summary ---
Author Organization [facility] Address [address] [place] [address] Care Team Providers Care Automotive Project Engineer Name Role Phone Linda Khan SOFTWARE VALIDATION ENGINEER Primary Care Provider [phone] Reason for Referral * (Routine) - New Request Specialty Diagnoses / Procedures Referred By Zackery daniels Referred To Contact Diagnoses Branch retinal vein occlusion of right eye with macular edema Procedures OCT (OPHTHALMIC DIGITAL IMAGING, POSTERIOR SEGMENT) Nils Owen MD [address] [place] [phone] Referral ID Status Reason Start Date Expiration Date V isits Requested Visits Authorized [id number] New Request 11/20/2017 1 1 Reason for Visit * Reason Comments Eye Problem Vision is the same b oth eyes, no pain, flashes or floaters HX of BMVO Encounter Details Date Type Department Care Team (Late st Contact Info) Description 11/20/2017 12:45 EDT Office Visit [facility] Ophthalmology [facility] [address] [place] [address] Nils Owen MD [address] [place] [phone] Social History Tobacco Use Types Packs/Day [...] AV nicking Periphery Normal Normal Care Teams Automotive Project Engineer Relationship Specialty Start Date End Date Linda Khan NP PCP - General 04/19/17 02/12/18 documented as of this encounter
--- OUTSIDE RECORDS SUMMARY | 2023-10-11 01:44 | XMS_ITS | Encounter Summary ---
Author Organization [facility] Address [address] [place] [address] Care Team Providers Care Turning And Beading Machine Operator Name Role Phone Ramona Melgar Primary Care Provider [phone] Encounter Details Date Type Department Care Team (Late st Contact Info) Description 07/23/2020 Lab Requisition [facility] Pathology & Laboratory Medicine - [address] [address] Outr Resulting Lab, Provider Social History Tobacco [...] gonorrhoeae Result Negative Negative 07/26/2020 15:27 EDT [facility] Chlamydia trachomatis Result Negative Negative 07/26/2020 15:27 EDT [facility] Papanicolaou smear specimen (specimen) CERVIX UTERI STRUCTURE / Unknown 07/23/2020 14:11 EDT 07/26/2020 8:07 EDT Provider Outr Resulting Lab MICROBIOLOGY - GENERAL ORDERABLES [facility] [address] [place] [address] documented in this encounter Visit Diagnoses Not on filedocumented in this encounter Care Teams Turning And Beading Machine Operator Relationship Specialty Start Date End Date Ramona Melgar [address] [place] [address] [place] [phone] PCP - General 09/16/18 documented as of this encounter
--- OUTSIDE RECORDS SUMMARY | 2023-10-11 01:44 | XMS_ITS | Encounter Summary ---
Author Organization [facility] Address [address] [place] [address] Care Team Providers Care Semiconductor Wafers Saw Operator Name Role Phone Ramona Melgar Primary Care Provider [phone] Encounter Details Date Type Department Care Team (Late st Contact Info) Description 07/23/2020 Lab Requisition [facility] Pathology & Laboratory Medicine - [address] [address] Lalita Molina PA [address] [place] [address] [place] [address] Encounter for other general examination [...] types, PCR Negative Negative 07/30/2020 14:40 EDT [facility] Comment:No E6 or E7 mRNA is detected from HPV types 16,18,31,33,35,39,45,51,52,56,58,59,66, and 68 by printing shop supervisor mediated amplification. Papanicolaou smear specimen (specimen) CERVIX UTERI STRUCTURE / Unknown 07/23/2020 14:11 EDT 07/29/2020 12:54 EDT Lalita GOODE MICROBIOLOGY - G ENERAL ORDERABLES [facility] [address] [place] [address] * PAP TEST (07/23/2020 14:11 EDT) Specimens A. Cervix and/or Endocervix , ThinPrep Imaging System with Manual Evaluation 07/30/2020 14:40 T [facility] Specimen Adequacy Satisfactory for Evaluation - assessment of transformation zone component not applicable ( e.g. atrophy, vaginal sample, hysterectomy) Scant squamous epithelial component 07/30/2020 14:40 T [facility] General Categorization Negative for intraepithelial lesion or malignancy 07/30/2020 14:40 [facility] Attestation . 07/30/2020 14:40 [facility] at 1440 Clinical History Clinical History, Signs, Symptoms, Chief Complaint, Pertaining to This Order: See below Last Menstral Period: 03.12.2000 07/30/2020 14:40 EDT [facility] HPV The result for the Human Papillomavirus (HPV) Detection-High Risk Types is Negative. No E6 or E7 mRNA is detected from HPV types 16,18,31,33,35,39 ,45,51,52,56,58,5 9,66, and 68 by printing shop supervisor mediated amplification.Dariana ting was performed on specimen [id number] and was resulted on 07/30/2020 1435 EDT by AMBER, LAB INSTRUMENT RESULTS IN 07/30/2020 14:40 EDT [facility] Performing Lab [facility] 07/30/2020 14:40 EDT [facility] Scanned Images 07/30/2020 14:40 EDT [facility] Papanicolaou smear specimen (specimen) CERVIX UTERI STRUCTURE / Unknown 07/23/2020 14:11 EDT 07/26/2020 13:22 EDT Lalita GOODE PATHOLOGY ORDERA BLES [facility] [address] [place] [address] documented in this encounter Visit Diagnoses Diagnosis Encounter for other general examination documented in this encounter Care Teams Semiconductor Wafers Saw Operator Relationship Specialty Start Date End Date Ramona Melgar [address] [place] [address] [place] [phone] PCP - General 09/16/18 documented as of this encounter
--- OUTSIDE RECORDS SUMMARY | 2023-10-11 01:44 | XMS_ITS | Encounter Summary ---
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 Edema right eye Encounter Details Date Type Department Care Team (Late st Contact Info) Description 09/18/2017 12:30 EDT Office Visit [facility] Ophthalmology [address] [address] Nils Owen MD [address] [place] [phone] Social History Tobacco Use Types Packs/Day [...] BMVO Normal Periphery Normal Normal Care Teams Flame Annealing Machine Setter Relationship Specialty Start Date End Date Linda Khan NP PCP - General 04/19/17 02/12/18 documented as of this encounter
--- OUTSIDE RECORDS SUMMARY | 2023-10-11 01:44 | XMS_ITS | Encounter Summary ---
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 No vision changes but her eyes get tired when she reads now. No new floaters or flashes. No pain. Encounter Details Date Type Department Care Team (Late st Contact Info) Description 03/25/2018 12:45 EST Office Visit [facility] Ophthalmology - [address] [address] Nils Owen MD [address] [place] [phone] Social History Tobacco Use Types Packs/Day [...] AV nicking Periphery Normal Normal Care Teams Credit Review Officer Relationship Specialty Start Date End Date Unknown, Provider, PCP - General 02/13/18 09/15/18 documented as of this encounter
--- OUTSIDE RECORDS SUMMARY | 2023-10-11 01:44 | XMS_ITS | Encounter Summary ---
Author Organization [facility] Address [address] [place] [address] Care Team Providers Care Environmental Services Manager Name Role Phone Ramona Melgar Primary Care Provider [phone] Encounter Details Date Type Department Care Team (Late st Contact Info) Description 08/17/2021 Lab Requisition [facility] Pathology & Laboratory Medicine - [address] [address] Polo Parker MD [address] [place] [address] [address] [place], [place] [id number] Encounter for screening for malignant neoplasm of [...] explore management options, if applicable. 08/19/2021 16:17 [facility] Final Diagnosis A. COLON, TRANSVERSE, POLYP, BIOPSY: - Tubular adenoma. B. COLON, SIGMOID, POLYPS, BIOPSY: - Hyperplastic polyps. 08/19/2021 16:17 [facility] Attestation By the signature below, the attending physician certifies that they have 1) personally conducted a gross and/or microscopic examination of the described specimen(s), and/or personally interpreted the results of laboratory testing of the described specimen(s), and 2) personally rendered or confirmed the above diagnosis. 08/19/2021 16:17 [facility] at 1617 Clinical History Colon cancer screening 08/19/2021 16:17 [facility] Gross Description A. [...] B1. RUSSEL LANDIN(ASCP) 08/18/2021 7:56 08/19/2021 16:17 [facility] Performing Lab [facility] 08/19/2021 16:17 [facility] Scanned Images 08/19/2021 16:17 [facility] Tissue ENTIRE SIGMOID COLON / Unknown 08/17/2021 14:06 EDT 08/17/2021 23:26 EDT Tissue specimen (specimen) SIGMOID COLON STRUCTURE / Unknown 08/17/2021 14:06 EDT 08/17/2021 23:26 EDT Polo Parker MD PATHOLOGY ORDERA BLEMarychuy [facility] [address] [place] [address] documented in this encounter Visit Diagnoses Diagnosis Encounter for screening for malignant neoplasm of colon Special screening for malignant neoplasms, colon documented in this encounter Care Teams Environmental Services Manager Relationship Specialty Start Date End Date Ramona Melgar [address] [place] [address] [place] [phone] PCP - General 09/16/18 documented as of this encounter
--- OUTSIDE RECORDS SUMMARY | 2023-10-11 01:44 | XMS_ITS | Encounter Summary ---
Author Organization [facility] Address [address] [place] [address] Care Team Providers Care Senior Vice President & General Counsel Name Role Phone Ramona Melgar Primary Care Provider [phone] Encounter Details Date Type Department Care Team (Late st Contact Info) Description 08/14/2019 Lab Requisition [facility] Pathology & Laboratory Medicine - [address] [address] Outr Resulting Lab, Provider Social History Tobacco [...] GIL Interpretation Positive(A) Negative 08/18/2019 15:00 EDT [facility] Comment: For titers greater than [...] Pattern 1 1:320 Homogeneous 08/18/2019 15:00 EDT [facility] GIL Titer and Pattern 2 1:640 Nuclear Dots 08/18/2019 15:00 EDT [facility] Blood VENOUS BLOOD / Unknown 08/14/2019 8:39 EDT 08/14/2019 22:09 EDT Narrative [facility] - 08/18/2019 15:00 EDT Results were obtained with the INOVA NOVA Lite HEp-2 GIL Kit by indirect immunofluorescence. Provider Outr Resulting Lab IMMUNOLOGY A ND SEROLOGY ORDERABLES [facility] [address] [place] [address] documented in this encounter Visit Diagnoses Not on filedocumented in this encounter Care Teams Senior Vice President & General Counsel Relationship Specialty Start Date End Date Ramona Melgar [address] [place] [address] [place] [phone] PCP - General 09/16/18 documented as of this encounter
--- OUTSIDE RECORDS SUMMARY | 2023-10-11 01:44 | XMS_ITS | Encounter Summary ---
Author Organization [facility] Address [address] [place] [address] Care Team Providers Care Holistic Pulser Name Role Phone Ramona Melgar Primary Care Provider [phone] Encounter Details Date Type Department Care Team (Late st Contact Info) Description 01/25/2019 Lab Requisition [facility] Pathology & Laboratory Medicine - [address] [address] Unknown, Provider, Social History Tobacco Use Types [...] ova and parasites seen. 01/27/2019 13:40 EST [facility] Feces FECES / Unknown 01/25/2019 9 :25 EST 01/26/2019 16:35 EST Narrative [facility] - 01/27/2019 13:40 EST (If Cryptosporidium, Cyclospora, or Microsporidium are suspected, specific tests must be requested.) Single negative specimen does not rule out the possibility of a parasitic infection. Provider Unknown MICROBIOLOGY Ghada HOOD AL ORDERABLES Performing Organization Address [facility] Co de Phone Number [facility] [address] [place] [address] * FECAL BACTERIAL PATHOGENS BY PCR (01/25/2019 9:25 EST) Salmonella PCR Negative Negative 01/27/2019 11:22 EST [facility] Shigella/Enteroin vasive E. coli Negative Negative 01/27/2019 11:22 EST [facility] HN LAB CAMPYLOBACTER PCR Negative Negative 01/27/2019 11:22 EST [facility] Shiga Toxin PCR Negative Negative 9 11:22 EST [facility] Feces FECES / Unknown 01/25/2019 9 :25 EST 01/26/2019 16:35 EST Provider Unknown MICROBIOLOGY Ghada PHILLIP ORDERABLES Performing Organization Address [facility] de Phone Number [facility] [address] [place] [address] documented in this encounter Visit Diagnoses Not on filedocumented in this encounter Care Teams Holistic Pulser Relationship Specialty Start Date End Date Ramona Melgar [address] [place] [address] [place] [phone] PCP - General 09/16/18 documented as of this encounter
--- OUTSIDE RECORDS SUMMARY | 2023-10-11 01:44 | XMS_ITS | Referral Summary ---
Author Organization [facility] Address [address] [place] [address] Care Team Providers Care Public Safety Dispatcher Name Role Phone Ramona Melgar Primary Care Provider [phone] Allergies Active Allergy Reactions Criticality Noted Date [...] of Treatment Not on file Care Teams Public Safety Dispatcher Relationship Specialty Start Date End Date Ramona Melgar [address] [place] [address] [place] [phone] PCP - General 09/16/18
--- OUTSIDE RECORDS SUMMARY | 2023-10-11 01:45 | XMS_ITS | Encounter Summary ---
Author Organization [facility] Address [address] [place] [address] Care Team Providers Care Lehr Tender Name Role Phone Unavailable Primary Care Provider Unavailabl e Encounter Details Date Type Department Care Team (Late st Contact Info) Description 10/23/2003 Results Only [facility] - [place] conversion [address] [place] [address] Katarina Reyes APRN Social History Tobacco Use [...] 68. [facility] Report Status Final [id number] [facility] 10/23/2003 8:32 EDT 10/26/2003 8:32 EDT Katarina Reyes APRN MICROBIOLOGY - GENERAL ORDERABLES [facility] [address] [place] [address] documented in this encounter Visit Diagnoses Not on filedocumented in this encounter
--- OUTSIDE RECORDS SUMMARY | 2023-10-11 01:45 | XMS_ITS | Encounter Summary ---
Author Organization [facility] Address [address] [place] [address] Care Team Providers Care Architectural Model Maker Name Role Phone Unavailable Primary Care Provider Unavailabl e Encounter Details Date Type Department Care Team (Late st Contact Info) Description 08/29/2001 Results Only [facility] [place] conversion [address] [place] [address] Samantha Abreu CNM Social History Tobacco Use [...] JOSE ALBERTO RAMIREZ ? Accession #: ? [id number] : ? 1955 (Age: 46) ??F ?Collect [...] Abreu CNM PATHOLOGY ORDERABLES [facility] [address] [place] [address] documented in this encounter Visit Diagnoses Not on filedocumented in this encounter
--- OUTSIDE RECORDS SUMMARY | 2023-10-11 01:45 | XMS_ITS | Encounter Summary ---
Author Organization [facility] Address [address] [place] [address] Care Team Providers Care Shoe Patternmaker Name Role Phone Unavailable Primary Care Provider Unavailabl e Encounter Details Date Type Department Care Team (Late st Contact Info) Description 07/12/[address] [facility] conversion [address] [place] [address] Ming Berman, LEMON PICKER Social History Tobacco Use Types Packs/Day Years [...] JOSE ALBERTO RAMIREZ ? Accession #: ? [id number] : ? 1955 (Age: 50) ??F ?Collect Date: ? 07/12/2005 Location: ? [facility] ? Receive Date: ? 07/14/2005 Provider: ?MING BERMAN APRN Copy to: ? Specimen/Source: ?ThinPrep Pap Test, Cervix/Endocervix, processed on [employer] ThinPrep Imaging System, with manual evaluation Last [...] of Report [facility] 07/12/2005 07/14/2005 Ming Bermna APRN PATHOLOGY ORDER JAMAL [facility] [address] [place] [address] documented in this encounter Visit Diagnoses Not on filedocumented in this encounter
--- OUTSIDE RECORDS SUMMARY | 2023-10-11 01:45 | XMS_ITS | Encounter Summary ---
Author Organization [facility] Address [address] [place] [address] Care Team Providers Care Internal Grinder Tender Name Role Phone Unavailable Primary Care Provider Unavailabl e Encounter Details Date Type Department Care Team (Late st Contact Info) Description 06/14/2000 Results Only [facility] - Map conversion [address] [place] [address] Samantha Cortez CNM Social History Tobacco Use [...] JOSE ALBERTO RAMIREZ ? Accession #: ? [id number] : ? 1955 (Age: 45) ??F ?Collect [...] CNM PATHOLOGY ORDERABLES [facility] [address] [place] [address] documented in this encounter Visit Diagnoses Not on filedocumented in this encounter
--- OUTSIDE RECORDS SUMMARY | 2023-10-11 01:45 | XMS_ITS | Encounter Summary ---
Author Organization [facility] Address [address] [place] [address] Care Team Providers Care Automat Watcher Name Role Phone Unavailable Primary Care Provider Unavailabl e Encounter Details Date Type Department Care Team (Late st Contact Info) Description 09/04/2002 Results Only [facility] [place] conversion [address] [place] [address] Ming Berman, SYNTHETIC CLOTH BINDING CUTTER Social History Tobacco Use Types Packs/Day Years [...] JOSE ALBERTO RAMIREZ ? Accession #: ? [id number] : ? 1955 (Age: 47) ??F ?Collect [...] Report [facility] 09/04/2002 09/08/2002 Ming Berman SYNTHETIC CLOTH BINDING CUTTER PATHOLOGY ORDER JAMAL [facility] [address] [place] [address] documented in this encounter Visit Diagnoses Not on filedocumented in this encounter
--- OUTSIDE RECORDS SUMMARY | 2023-10-11 01:45 | XMS_ITS | Encounter Summary ---
Author Organization [facility] Address [address] [place] [address] Care Team Providers Care Executive Casino Host Name Role Phone Unavailable Primary Care Provider Unavailabl e Encounter Details Date Type Department Care Team (Late st Contact Info) Description 01/17/2007 Results Only [facility] - [place] conversion [address] [place] [address] Ming Berman APRN Social History Tobacco Use [...] sufficient. [facility] Report Status Final [id number] [facility] 01/17/2007 10:1 2 EST 01/25/2007 10:12 EST Ming Berman APRN MICROBIOLOGY - GENERAL ORDERABLES [facility] [address] [place] [address] * CYTOPATHOLOGY (01/17/2007 0:00 EST) Pathology Report: CYTOPATHOLOGY REPORT Reports generated via electronic interface contain original data; however they are lacking the format of the original report. Caution should be taken when reading/interpreti ng unformatted reports. Name: ? JOSE ALBERTO RAMIREZ ? Accession #: ? [id number] : ? 1955 (Age: 51) ??F ?Collect Date: ? 01/17/2007 Location: ? [facility] ? Receive Date: ? 01/21/2007 Provider: ?MING BERMAN GOLF SHOE SPIKE ASSEMBLER Copy to: ? Specimen/Source: ?ThinPrep Pap Test, Cervix/Endocervix, processed on [email or web address] ThinPrep Imaging System, with manual evaluation Last [...] APRN PATHOLOGY ORDER JAMAL [facility] [address] [place] [address] documented in this encounter Visit Diagnoses Not on filedocumented in this encounter
--- OUTSIDE RECORDS SUMMARY | 2023-10-11 01:45 | XMS_ITS | Encounter Summary ---
Author Organization [facility] Address [address] [place] [address] Care Team Providers Care Sand Mill Operator Name Role Phone Linda Khan MARKETING STRATEGY ANALYST Primary Care Provider [phone] Reason for Referral * (Routine) - New Request Specialty Diagnoses / Procedures Referred By Zackery daniels Referred To Contact Diagnoses BRVO (branch retinal vein occlusion) Retinal edema Procedures OCT (OPHTHALMIC DIGITAL IMAGING, POSTERIOR SEGMENT) Nils Owen MD [address] [place] [phone] Referral ID Status Reason Start Date Expiration Date V isits Requested Visits Authorized [id number] New Request 05/09/2017 1 1 Reason for Visit * Reason Comments Eye Problem NPV- BRVO with ME ri ght eye Encounter Details Date Type Department Care Team (Late st Contact Info) Description 05/08/2017 12:45 EST Office Visit [facility] Ophthalmology [place] [address] [place] [address] Nils Owen MD [address] [place] [phone] Social History Tobacco Use Types Packs/Day [...] problem list. I am scribing for Dr. Nisl Owen MD while he is personally performing the service. KRYSTAL Flores (Scribe) * Nils Owen MD - 05/08/2017 0000 EST [facility] OPHTH[facility]OLOG[facility] May 08, 2017 Britta Zeng [facility] [address] [place] [address] RE: JOSE ALBERTO RAMIREZ : 1955 Dear [...] - Nils Owen MD en Dictation ID: [id number] cc: Linda MELENDREZP, [address] [place] [address] Britta Baumandenise OD, [address], [place] [address] documented in this encounter Plan of Treatment [...] d+ b heme/BRVO; CWS Normal Care Teams Sand Mill Operator Relationship Specialty Start Date End Date Linda Khan, HERMES PCP - General 04/19/17 02/12/18 documented as of this encounter
--- OUTSIDE RECORDS SUMMARY | 2023-10-11 01:45 | XMS_ITS | Encounter Summary ---
Author Organization [facility] Address [address] [place] [address] Care Team Providers Care Morgue Attendant Name Role Phone Unavailable Primary Care Provider Unavailabl e Encounter Details Date Type Department Care Team (Late st Contact Info) Description 09/09/2003 Results Only [facility] - [place] conversion [address] [place] [address] Ming Berman APRN Social History Tobacco Use [...] Issued [facility] Report Status Final [id number] [facility] 09/09/2003 15:0 5 EDT 09/23/2003 15:05 EDT Ming Berman APRN MICROBIOLOGY - GENERAL ORDERABLES [facility] [address] [place] [address] * CYTOPATHOLOGY (09/09/2003 0:00 EDT) Pathology Report: CYTOPATHOLOGY REPORT Reports generated via electronic interface contain original data; however they are lacking the format of the original report. Caution should be taken when reading/interpreti ng unformatted reports. Name: ? JOSE ALBERTO RAMIREZ ? Accession #: ? [id number] : ? 1955 (Age: 48) ??F ?Collect Date: ? 09/09/2003 Location: ? [facility] ? Receive Date: ? 09/11/2003 Provider: ?MING BERMAN MANAGING COGNITIVE ENGINEER Copy to: ? Specimen/Source: ?ThinPrep Pap Test, Cervix/Endocervix Last Menstrual Period: ? 08/19/03 Other: ? HPVA - HPV testing requested if ASC-US on the current ThinPrep Pap test. ? SPECIMEN ADEQUACY ? Satisfactory for Evaluation - transformation zone component present GENERAL CATEGORIZATION ? Epithelial Cell Abnormality INTERPRETATION ? Squamous Cell Abnormality - Atypical squamous cells, undetermined significance. EDUCATIONAL NOTES/RECOMMENDATI ONS ? [facility] recommends following the 2001 Consensus Guidelines for the Management of Women with Cervical Cytological Abnormalities (SEBASTIAN,2002;287:212 0-9). Management algorithms have been distributed by [facility] and are available online at www.ASCCP.org. ? Document reviewed and electronically signed by: ? LAURA EAGLE MD [facility] ? Report Date: ??09/23/2003 12:56 End of Report [facility] 09/09/2003 09/11/2003 Ming Berman APRN PATHOLOGY ORDER JAMAL LOMBARDO [facility] [address] [place] [address] documented in this encounter Visit Diagnoses Not on filedocumented in this encounter
--- OUTSIDE RECORDS SUMMARY | 2023-10-11 01:45 | XMS_ITS | Encounter Summary ---
Author Organization [facility] Address [address] [place] [address] Care Team Providers Care Bookkeeper Receptionist Name Role Phone Unavailable Primary Care Provider Unavailabl e Encounter Details Date Type Department Care Team (Late st Contact Info) Description 01/04/2006 Results Only [facility] [place] conversion [address] [place] [address] Mnig Berman, AIR TWISTER WINDER Social History Tobacco Use Types Packs/Day Years [...] JOSE ALBERTO RAMIREZ ? Accession #: ? [id number] : ? 1955 (Age: 50) ??F ?Collect Date: ? 01/04/2006 Location: ? [facility] ? Receive Date: ? 01/05/2006 Provider: ?MING BERMAN AIR TWISTER WINDER Copy to: ? Specimen/Source: ?ThinPrep Pap Test, Cervix/Endocervix, processed on [employer] ThinPrep Imaging System, with manual evaluation Last [...] Report MUNIRA OLIVEROS 01/04/2006 01/05/2006 Ming Berman AIR TWISTER WINDER PATHOLOGY ORDER JAMAL MUNIRA OLIVEROS [address] [place] [address] documented in this encounter Visit Diagnoses Not on filedocumented in this encounter
--- OUTSIDE RECORDS SUMMARY | 2023-10-11 01:45 | XMS_ITS | Encounter Summary ---
Author Organization [facility] Address [address] [place] [address] Care Team Providers Care Historic Clothing And Costume Maker Name Role Phone Unavailable Primary Care Provider Unavailabl e Encounter Details Date Type Department Care Team (Latest Contact Info) Description 01/04/2006 19:16 EDT Hospital Encounter [facility] - Other [address] [place] [address] Katarina Reyes, SILVER SPRAY WORKER Discharge Disposition: Home or Self Care Social [...] JOSE ALBERTO RAMIREZ ? Accession #: ? [id number] ? : ? 1955 (Age: 54) ??F ?Collect Date: ? 03/29/2009 ? Location: ? [facility] ? Receive Date: ? 03/31/2009 ? Provider: ?FLAVIA SNOW SILVER SPRAY WORKER ? Copy to: ? Specimen/Source: ?Pap Test, [...] APRN PATHOLOGY ORDERABLES [facility] [address] [place] [address] * HUMAN PAPILLOMA VIRUS DNA TEST (01/04/2006 22:51 EDT) Specimen Description Cervix, ThinPrep vial [facility] Result Quantity not sufficient. [facility] Report Status Final [id number] [facility] 01/04/2006 22:5 1 EDT 01/09/2006 22:51 EST Katarina Reyes APRN MICROBIOLOGY - GENERAL ORDERABLES Performing Organization Address City/State/[facility] Co de Phone Number [facility] [address] [place] [address] documented in this encounter Visit Diagnoses Not on filedocumented in this encounter
--- OUTSIDE RECORDS SUMMARY | 2023-10-11 01:45 | XMS_ITS | Encounter Summary ---
Author Organization [facility] Address [address] [place] [address] Care Team Providers Care Fiber Design Engineer Name Role Phone Unavailable Primary Care Provider Unavailabl e Encounter Details Date Type Department Care Team (Late st Contact Info) Description 09/27/2004 Results Only [facility] [place] conversion [address] [place] [address] Ming Berman, CERTIFIED COURT/MEDICAL INTERPRETER Social History Tobacco Use Types Packs/Day Years [...] JOSE ALBERTO RAMIREZ ? Accession #: ? [id number] : ? 1955 (Age: 49) ??F ?Collect Date: ? 09/27/2004 Location: ? [facility] ? Receive Date: ? 09/29/2004 Provider: ?MING BERMAN APRN Copy to: ? Specimen/Source: ?ThinPrep Pap Test, Cervix/Endocervix, processed on [employer] ThinPrep Imaging System, with manual evaluation Last [...] cells, undetermined significance. EDUCATIONAL NOTES/RECOMMENDATI ONS ? [facility] recommends following the 2001 Consensus Guidelines for the Management of Women with Cervical Cytological Abnormalities (SEBASTIAN,2002;287:212 0-9). Management algorithms have been distributed by [facility] and are available online at www.ASCCP.org. ? Document reviewed and electronically signed by: ? SAMIR HERRERA MD ? Report Date: ??10/07/2004 17:41 End of Report MUNIRA OLIVEROS 09/27/2004 09/29/2004 Ming Berman APRN PATHOLOGY ORDER JAMAL MUNIRA OLIVEROS [address] [place] [address] documented in this encounter Visit Diagnoses Not on filedocumented in this encounter
--- OUTSIDE RECORDS SUMMARY | 2023-10-11 01:45 | XMS_ITS | Encounter Summary ---
Author Organization [facility] Address [address] [place] [address] Care Team Providers Care Ethnographic Materials Conservator Name Role Phone Unavailable Primary Care Provider Unavailabl e Encounter Details Date Type Department Care Team (Late st Contact Info) Description 06/16/1999 Results Only [facility] [place] conversion [address] [place] [address] Samantha Abreu CNM Social History Tobacco Use [...] JOSE ALBERTO RAMIREZ ? Accession #: ? [id number] : ? 1955 (Age: 44) ??F ?Collect Date: ? 06/16/1999 Location: ?Receive Date: ? 06/16/1999 Provider: ?SAMANTHA ABREU CNM Copy to: ?SAMANTHA DULUDE CNM ? Specimen/Source: ?Pap Smear (One Slide) Last Menstrual Period: ? GYNECOLOGIC ??CYTOPATHOLOGY ??REPORT Name: JOSE ALBERTO RAMIREZ ? [facility] : 1955 ?? 44Y F ?Client ID: [id number] SS#: ? Clinician: DULUDE CNM, SAMANTHA ?? Location: [facility] ??Copy to: ?? Specimen: ?Pap [...] Dulude CNM PATHOLOGY ORDERABLES Performing Organization Address City/State/[facility] Co de Phone Number MUNIRA OLIVEROS [address] [place] [address] documented in this encounter Visit Diagnoses Not on filedocumented in this encounter
--- OUTSIDE RECORDS SUMMARY | 2023-10-11 01:45 | XMS_ITS | Encounter Summary ---
Author Organization [facility] Address [address] [place] [address] Care Team Providers Care Quality Assurance Supervisor Name Role Phone Linda Khan EXHAUST WORKER Primary Care Provider [phone] Reason for Referral * (Routine) - New Request Specialty Diagnoses / Procedures Referred By Zackery daniels Referred To Contact Diagnoses BRVO (branch retinal vein occlusion) Retinal edema Procedures FLUORESCEIN ANGIOGRAPHY Nils Owen MD [address] [place] [phone] Referral ID Status Reason Start Date Expiration Date V isits Requested Visits Authorized [id number] New Request 06/05/2017 1 1 * (Routine) - New Request Specialty Diagnoses / Procedures Referred By Zackery daniels Referred To Contact Diagnoses BRVO (branch retinal vein occlusion) Retinal edema Procedures EYE PHOTOGRAPHY (FUNDUS) Nils Owen MD [address] [phone] Referral ID Status Reason Start Date Expiration Date V isits Requested Visits Authorized [id number] New Request 06/05/2017 1 1 * (Routine) - New Request Specialty Diagnoses / Procedures Referred By Contjuanjo daniels Referred To Contact Diagnoses BRVO (branch retinal vein occlusion) Retinal edema Procedures OCT (OPHTHALMIC DIGITAL IMAGING, POSTERIOR SEGMENT) Nils Owen MD [address] [phone] Referral ID Status Reason Start Date Expiration Date V isits Requested Visits Authorized [id number] New Request 06/05/2017 1 1 Reason for [...] Info) Description 06/05/2017 12:30 EDT Office Visit [facility] Ophthalmology - [place] [address] [place] [address] Nils Owen MD [address] [place] [address] [address] [place] [address] Social History Tobacco Use Types [...] Owen MD - 06/05/2017 0000 EDT [facility] OPH[facility]OLOG[facility] June 05, 2017 RE: JOSE [...] Nils Owen MD 02 29 PM - Nils Owen MD jn Dictation ID: [id number] Britta Israel copy IVFA/PHOTOS documented in this [...] Normal Normal Periphery Normal Normal Care Teams Quality Assurance Supervisor Relationship Specialty Start Date End Date Linda Khan NP PCP - General 04/19/17 02/12/18 documented as of this encounter
--- NOTE | 2023-10-11 09:10 | DI.CTLCSR_ITS ---
Exam(s) CT CHEST LUNG CANCER SCREEN EXAM: CT CHEST LUNG CANCER SCREEN CLINICAL HISTORY: Screening for lung cancer, FORMER SMOKER, Z87.891 TECHNIQUE: Imaging Protocol: Axial computed tomography images with coronal and sagittal reformatted images were created and reviewed. Low dose screening protocol. COMPARISON: CT CT CHEST WO from 02/11/[address] CHEST LUNG CANCER SCREEN from 09/05/2022 FINDINGS: Tracheobronchial tree: No bronchiectasis or mucus plugging. Mediastinum and Lynn: No dominant adenopathy or fluid collection. Pulmonary parenchyma: No consolidation or dominant measurable mass. Mild emphysematous changes. Lung Nodules: Scattered tiny granulomata. Pleura: No effusion. No pneumothorax. Heart: The heart is not dilated. Mild coronary artery calcifications are seen. Mild pericardial thi ckening, stable. Aorta: Thoracic aorta non-dilated. Mild atherosclerotic changes. Upper abdomen: Unremarkable. Bones: Unremarkable for age. Soft Tissues: Unremarkable. IMPRESSION: No suspicious pulmonary nodules. Lung RADS Cat 1 - Negative: No nodules and definitely benign nodules Lung-RADS 1.0 CATEGORIES: Category 0 - Prior chest CT exam(s) being located for comparison. Category 1 - Annual screening in 12 months. No nodules or definitely benign nodules. Category 2 - Annual screening in 12 months. Benign appearance. Nodules with low likelihood of becomin g active cancer. Category 3 - 6-month follow-up. Probably benign. Short-term follow-up suggested. Nodules with low lik elihood of becoming active cancer. Category 4A - 3-month follow-up and CT/PET if >8 mm in size. Suspicious finding. Findings which requi re additional testing. Category 4B - Findings which require additional testing and tissue sampling. Category 4X - Category 3 or 4 nodules with additional features or imaging findings that increases the suspicion of malignancy. Modifier S- Potentially clinically significant findings (non lung cancer) RADIATION DOSE DELIVERED: Total DLP DATA REPOSITORY: All CT scans at this facility are submitted to the National Radiology Data Registry (NRDR) Dose Index Registry (DIR) with the [employer] (ACR). RADIATION OPTIMIZATION: All CT scans at this facility use at least one of these dose optimization te chniques: automated exposure control; mA and/or kV adjustment per patient size (includes targeted exa ms where dose is matched to clinical indication); or iterative reconstruction.
== END ==
PROVIDERS: PCP Nurse Practitioner Family; Visit Provider Internal Medicine Critical Care Medicine
DX: Z87.891 Personal history of nicotine dependence (principal)
CPT/HCPCS: 71271

== ENCOUNTER 2024-03-20 15:07 | Outpatient (REF) | payer MEDICARE, MEDICAID, SELFPAY ==
--- OUTSIDE RECORDS SUMMARY | 2024-03-20 15:31 | XMS_ITS | Encounter Summary ---
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 Procedures OCT (OPHTHALMIC DIGITAL IMAGING, POSTERIOR SEGMENT) Nils Owen MD Phone: tel: fax: Referral ID Status Reason Start Date Expiration Date V isits Requested Visits Authorized [id number] New Request 11/20/2017 1 1 Reason for Visit * Reason Comments Eye Problem Vision is the same b oth eyes, no pain, flashes or floaters HX of BMVO Encounter Details Date Type Department Care Team (Late st Contact Info) Description 11/20/2017 12:45 EDT Office Visit [facility] Ophthalmology [facility] [address] [place] [address] Nils Owen MD [address] [facility], [address] [place] [address] Social History Tobacco Use Types Packs/Day Years Used Date Smoking Tobacco: Light Smoker Cigarettes Smokeless Tobacco: Never Alcohol Use Standard Drinks/Week Comments Yes 0 (1 standard drink = 0.6 oz pur e alcohol) occasional Comments Unknown Sex and Gender Information Value Date Recorded Sex Assigned at Not on file Legal Sex Female 18:15 EST Gender Identity Not on file Sexual Orientation [...] AV nicking Periphery Normal Normal Care Teams Telephone Operator Receptionist Relationship Specialty Start Date End Date Linda Khan, SECURITY SERVICES MANAGER PCP - General 04/19/17 02/12/18 documented as of this encounter
--- OUTSIDE RECORDS SUMMARY | 2024-03-20 15:31 | XMS_ITS | Encounter Summary ---
Author Organization [facility] Address [address] [place] [address] Care Team Providers Care Steel Engraver Name Role Phone Unavailable Primary Care Provider Unavailabl e Encounter Details Date Type Department Care Team (Late st Contact Info) Description 09/27/2004 Results Only [facility] [place] conversion [address] [place] [address] Ming Berman, CAMPAIGN MANAGEMENT SENIOR MANAGER Social History Tobacco Use Types Packs/Day Years Used Date Smoking Tobacco: Never Assessed Comments Unknown Sex and Gender Information Value [...] JOSE ALBERTO RAMIREZ ? Accession #: ? [id number] : ? 1955 (Age: 49) ??F ?Collect Date: ? 09/27/2004 Location: ? [facility] ? Receive Date: ? 09/29/2004 Provider: ?MING BERMAN CAMPAIGN MANAGEMENT SENIOR MANAGER Copy to: ? Specimen/Source: ?ThinPrep Pap Test, Cervix/Endocervix, processed on [employer] ThinPrep Imaging System, with manual evaluation Last [...] cells, undetermined significance. EDUCATIONAL NOTES/RECOMMENDATI ONS ? [facility] recommends following the 2001 Consensus Guidelines for the Management of Women with Cervical Cytological Abnormalities (SEBASTIAN,2002;287:212 0-9). Management algorithms have been distributed by [facility] and are available online at www.ASCCP.org. ? Document reviewed and electronically signed by: ? SAMIR HERRERA MD ? Report Date: ??10/07/2004 17:41 End of Report MUNIRA OLIVEROS 09/27/2004 09/29/2004 us Ming Berman CAMPAIGN MANAGEMENT SENIOR MANAGER PATHOLOGY ORDERABLES Fi nal Result [facility] [address] [place] [address] documented in this encounter Visit Diagnoses Not on filedocumented in this encounter
--- OUTSIDE RECORDS SUMMARY | 2024-03-20 15:31 | XMS_ITS | Encounter Summary ---
Author Organization [facility] Address [address] [place] [address] Care Team Providers Care Credit Risk Associate Name Role Phone Unavailable Primary Care Provider Unavailabl e Encounter Details Date Type Department Care Team (Late st Contact Info) Description 07/12/2005 Results Only [facility] [place] conversion [address] [place] [address] Ming Berman, COMMERCIAL TRAILER TRUCK DRIVER Social History Tobacco Use Types Packs/Day Years [...] JOSE ALBERTO RAMIREZ ? Accession #: ? [id number] : ? 1955 (Age: 50) ??F ?Collect Date: ? 07/12/2005 Location: ? [facility] ? Receive Date: ? 07/14/2005 Provider: ?MING BERMAN COMMERCIAL TRAILER TRUCK DRIVER Copy to: ? Specimen/Source: ?ThinPrep Pap Test, Cervix/Endocervix, processed on [employer] ThinPrep Imaging System, with manual evaluation Last [...] End of Report MUNIRA OLIVEROS 07/12/2005 07/14/2005 us Ming Berman COMMERCIAL TRAILER TRUCK DRIVER PATHOLOGY ORDERABLES Fi nal Result MUNIRA OLIVEROS [address] [place] [address] documented in this encounter Visit Diagnoses Not on filedocumented in this encounter
--- OUTSIDE RECORDS SUMMARY | 2024-03-20 15:31 | XMS_ITS | Encounter Summary ---
Author Organization [facility] Address [address] [place] [address] Care Team Providers Care Commissioner Of Relocation Services Name Role Phone Ramona Melgar Primary Care Provider [phone] Encounter Details Date Type Department Care Team (Late st Contact Info) Description 07/23/2020 Lab Requisition [facility] Pathology & Laboratory Medicine - [address] [address] Lalita Molina PA [address] [place] [address] [place] [address] Encounter for other general examination Social History Tobacco Use Types Packs/Day Years Used Date Smoking Tobacco: Light Smoker Cigarettes Smokeless Tobacco: Never Alcohol Use Standard Drinks/Week Comments Yes 0 (1 standard drink = 0.6 oz pur e alcohol) occasional Interpersonal Safety Answer Date Record ed Physically Hurt Never 10/12/2019 Verbally Threaten Not on file 10/12/2019 Comments Unknown Sex and Gender Information Value [...] types, PCR Negative Negative 07/30/2020 14:40 EDT [facility] Comment:No E6 or E7 mRNA is detected from HPV types 16,18,31,33,35,39,45,51,52,56,58,59,66, and 68 by gun perforator mediated amplification. Papanicolaou smear specimen (specimen) CERVIX UTERI STRUCTURE / Unknown 07/23/2020 14:11 EDT 07/29/2020 12:54 EDT Lalita GOODE MICROBIOLOGY - GENERAL O RDERABLES Final Result [facility] [address] [place] [address] * PAP TEST (07/23/2020 14:11 EDT) Specimens A. Cervix and/or Endocervix , ThinPrep Imaging System with Manual Evaluation 07/30/2020 14:40 EDT [facility] Specimen Adequacy Satisfactory for Evaluation - assessment of transformation zone component not applicable ( e.g. atrophy, vaginal sample, hysterectomy) Scant squamous epithelial component 07/30/2020 14:40 T [facility] General Categorization Negative for intraepithelial lesion or malignancy 07/30/2020 14:40 T [facility] Attestation . 07/30/2020 14:40 [facility] at 1440 Clinical History Clinical History, Signs, Symptoms, Chief Complaint, Pertaining to This Order: See below Last Menstral Period: 03.12.2000 07/30/2020 14:40 EDT [facility] HPV The result for the Human Papillomavirus (HPV) Detection-High Risk Types is Negative. No E6 or E7 mRNA is detected from HPV types 16,18,31,33,35,39 ,45,51,52,56,58,5 9,66, and 68 by gun perforator mediated amplification.Dariana ting was performed on specimen [id number] and was resulted on 07/30/2020 1435 EDT by AMBER, LAB INSTRUMENT RESULTS IN 07/30/2020 14:40 EDT [facility] Performing Lab [facility] 07/30/2020 14:40 EDT [facility] Scanned Images 07/30/2020 14:40 EDT [facility] Papanicolaou smear specimen (specimen) CERVIX UTERI STRUCTURE / Unknown 07/23/2020 14:11 EDT 07/26/2020 13:22 EDT Lalita GOOED PATHOLOGY ORDERABLES Fin al Result [facility] [address] [place] [address] documented in this encounter Visit Diagnoses Diagnosis Encounter for other general examination documented in this encounter Care Teams Commissioner Of Relocation Services Relationship Specialty Start Date End Date Ramona Melgar PCP - General 09/16/18 documented as of this encounter
--- OUTSIDE RECORDS SUMMARY | 2024-03-20 15:31 | XMS_ITS | Encounter Summary ---
Author Organization [facility] Address [address] [place] [address] Care Team Providers Care Mgmt Consultant Name Role Phone Ramona Melgar Primary Care Provider [phone] Encounter Details Date Type Department Care Team (Late st Contact Info) Description 08/14/2019 Lab Requisition [facility] Pathology & Laboratory Medicine - [address] [address] Outr Resulting Lab, Provider Social History Tobacco [...] GIL Interpretation Positive(A) Negative 08/18/2019 15:00 EDT [facility] Comment: For titers greater than [...] Pattern 1 1:320 Homogeneous 08/18/2019 15:00 EDT [facility] GIL Titer and Pattern 2 1:640 Nuclear Dots 08/18/2019 15:00 EDT [facility] Blood VENOUS BLOOD / Unknown 08/14/2019 8:39 EDT 08/14/2019 22:09 EDT Narrative [facility] - 08/18/2019 15:00 EDT Results were obtained with the INOVA NOVA Lite HEp-2 GIL Kit by indirect immunofluorescence. us Provider Outr Resulting Lab IMMUNOLOGY AND SEROL OGY ORDERABLES Final Result Performing Organization Address City/State/[facility] Co de Phone Number [facility] [address] [place] [address] documented in this encounter Visit Diagnoses Not on filedocumented in this encounter Care Teams Mgmt Consultant Relationship Specialty Start Date End Date Ramona Melgar PCP - General 09/16/18 documented as of this encounter
--- OUTSIDE RECORDS SUMMARY | 2024-03-20 15:31 | XMS_ITS | Referral Summary ---
Author Organization [facility] Address [address] [place] [address] Care Team Providers Care Doughmaker Name Role Phone Ramona Melgar Primary Care Provider [phone] Allergies Active Allergy Reactions Criticality Noted Date Comments Conj Estrog-Medroxyprogest Chris Anaphylaxis High 04/13 Medications omeprazole (PRILOSEC) 20 mg capsule Take 20 mg by mouth daily. Active diazePAM (VALIUM) 10 mg tablet Take 10 mg by mouth 3 times daily. Active ibuprofen (MOTRIN) 600 mg tablet Take 600 mg by mouth 3 times daily. Active hydroCHLOROthia zide (HYDRODIURIL) 25 mg tablet Take 25 mg by mouth daily. Active fluticasone (FLONASE) 50 mcg/actuation nasal spray Instill 100 mcg into both nostrils daily. Active fluticasone/ume clidin/vilanter (TRELEGY ELLIPTA INHALATION) Inhale as directed. Active [...] - Plan of Treatment Not on file Insurance MEDICAID [place] Care Teams Doughmaker Relationship Specialty Start Date End Date Ramona Melgar PCP - General 09/16/18
--- OUTSIDE RECORDS SUMMARY | 2024-03-20 15:31 | XMS_ITS | Encounter Summary ---
Author Organization [facility] Address [address] [place] [address] Care Team Providers Care Rod Buster Helper Name Role Phone Linda Khan BOTTLE LABEL INSPECTOR Primary Care Provider [phone] Reason for Visit * Reason Onset Date Comments Other 06/12/2017 Encounter Details Date Type Department Care Team (Late st Contact Info) Description 06/12/2017 Telephone [facility] Ophthalmology - [place] [place], [place] [id number] Nils Owen MD [address] [facility], [facility] [address] [place] [address] Other Social History Tobacco Use [...] that appointment. I called and spoke to Ibeth be her on 07/10/17. * Telephone Encounter - Ulisses Muñiz RN - 06/12/[address] Owen's note on 05/26/17: Branch macular vein occlusion right eye with mild edema Discussed BP control Discussed observation vs intravit injection-will discuss with BK * Telephone Encounter - Deirdre Guevara - 06/12/2017 2470 EDT Patient called stating she was to call today if she hadn't heard from Dr. Owen. She hasn't heard from Dr. Owne, so she is calling. Dr. Owen was supposed to speak with Dr. Soriano and call the patient with an update. She is requesting a return call. Her next visit is currently scheduled for 07/10/[address] Owen. documented in this encounter Plan of Treatment Not on file documented as of this encounter Visit Diagnoses Not on filedocumented in this encounter Care Teams Rod Buster Helper Relationship Specialty Start Date End Date Linda Khan NP PCP - General 04/19/17 02/12/18 documented as of this encounter
--- OUTSIDE RECORDS SUMMARY | 2024-03-20 15:31 | XMS_ITS | Encounter Summary ---
Author Organization [facility] Address [address] [place] [address] Care Team Providers Care Plastic Outfitter Name Role Phone Unavailable Primary Care Provider Unavailabl e Encounter Details Date Type Department Care Team (Late st Contact Info) Description 06/16/1999 Results Only [facility] conversion [address] [place] [address] Samantha Cortez, MARIZA Social History Tobacco Use Types Packs/Day Years [...] JOSE ALBERTO RAMIREZ ? Accession #: ? [id number] : ? 1955 (Age: 44) ??F ?Collect Date: ? 06/16/1999 Location: ?Receive Date: ? 06/16/1999 Provider: ?SAMANTHA DULROXIE CNM Copy to: ?SAMANTHA DULUDE CNM ? Specimen/Source: ?Pap Smear (One Slide) Last Menstrual Period: ? GYNECOLOGIC ??CYTOPATHOLOGY ??REPORT Name: JOSE ALBERTO RAMIREZ ? FA[facility] : 1955 ?? 44Y F ?Client ID: [id number] SS#: ? Clinician: DULUDE CNM, SAMANTHA ?? Location: [facility] ??Copy to: ?? [...] Leach, CT(ASCP) ? Report Date: ?? 06/22/1999 Roundrate Archived Tests - Final Diagnosis Text Field: Clinical History : ? Document reviewed and electronically signed by: ? Conversion ? Report Date: ??06/22/1999 00:00 End of Report [facility] 06/16/1999 13:3 3 EDT 06/16/1999 13:34 EDT us Samantha Cortez CNM PATHOLOGY ORDERABLES Final Resu lt [facility] [address] [place] [address] documented in this encounter Visit Diagnoses Not on filedocumented in this encounter
--- OUTSIDE RECORDS SUMMARY | 2024-03-20 15:31 | XMS_ITS | Encounter Summary ---
Author Organization [facility] Address [address] [place] [address] Care Team Providers Care Head Setter Name Role Phone Unavailable Primary Care Provider Unavailabl e Encounter Details Date Type Department Care Team (Late st Contact Info) Description 06/14/2000 Results Only [facility] conversion [address] [place] [address] Samantha Cortez CNM Social History Tobacco Use [...] JOSE ALBERTO RAMIREZ ? Accession #: ? [id number] : ? 1955 (Age: 45) ??F ?Collect Date: ? 06/14/2000 Location: ? [facility] ? Receive Date: ? 06/18/2000 Provider: ?SAMANTHA DIEGO CNM Copy to: ? Specimen/Source: ?ThinPrep Pap Test, Cervix/Endocervix Last Menstrual Period: ? 05/26/00 ? SPECIMEN ADEQUACY ? Satisfactory for evaluation. GENERAL CATEGORIZATION ? Benign Cellular Changes DESCRIPTIVE DIAGNOSIS ? Predominance of coccobacilli present consistent with shift in vaginal jeny. ? Document reviewed and electronically signed by: ? CHET Tatum(ASCP) ? Report Date: ??06/19/2000 13:12 End of Report [facility] 06/14/2000 06/18/2000 us Samantha Diego DAWKINS PATHOLOGY ORDERABLES Final Resu lt [facility] [address] [place] [address] documented in this encounter Visit Diagnoses Not on filedocumented in this encounter
--- OUTSIDE RECORDS SUMMARY | 2024-03-20 15:31 | XMS_ITS | Encounter Summary ---
Author Organization [facility] Address [address] [place] [address] Care Team Providers Care Returns Supervisor Name Role Phone Ramona Melgar Primary Care Provider [phone] Encounter Details Date Type Department Care Team (Late st Contact Info) Description 07/23/2020 Lab Requisition [facility] Pathology & Laboratory Medicine - [address] [address] Outr Resulting Lab, Provider Social History Tobacco [...] gonorrhoeae Result Negative Negative 07/26/2020 15:27 EDT [facility] Chlamydia trachomatis Result Negative Negative 07/26/2020 15:27 EDT [facility] Papanicolaou smear specimen (specimen) CERVIX UTERI STRUCTURE / Unknown 07/23/2020 14:11 EDT 07/26/2020 8:07 EDT us Provider Outr Resulting Lab MICROBIOLOGY - GENER AL ORDERABLES Final Result Performing Organization Address City/State/[facility] Co de Phone Number [facility] [address] [place] [address] documented in this encounter Visit Diagnoses Not on filedocumented in this encounter Care Teams Returns Supervisor Relationship Specialty Start Date End Date Ramona Melgar PCP - General 09/16/18 documented as of this encounter
--- OUTSIDE RECORDS SUMMARY | 2024-03-20 15:31 | XMS_ITS | Encounter Summary ---
Author Organization [facility] Address [address] [place] [address] Care Team Providers Care Balance Wheel Arm Burnisher Name Role Phone Unavailable Primary Care Provider Unavailabl e Encounter Details Date Type Department Care Team (Latest Contact Info) Description 01/04/2006 19:16 EDT Hospital Encounter [facility] - Other [address] [place] [address] Katarina Reyes, CORRESPONDENCE REVIEW CLERK Discharge Disposition: Home or Self Care Social [...] JOSE ALBERTO RAMIREZ ? Accession #: ? [id number] ? : ? 1955 (Age: 54) ??F ?Collect Date: ? 03/29/2009 ? Location: ? [facility] ? Receive Date: ? 03/31/2009 ? Provider: ?FLAVIA SNOW CORRESPONDENCE REVIEW CLERK ? Copy to: ? Specimen/Source: ?Pap Test, [...] Report ? [facility] 03/29/2009 03/31/2009 us Flavia Brooks APRN PATHOLOGY ORDERABLES Final Res ult [facility] [address] [place] [address] * HUMAN PAPILLOMA VIRUS DNA TEST (01/04/2006 22:51 EDT) Specimen Description Cervix, ThinPrep vial [facility] Result Quantity not sufficient. [facility] Report Status Final [id number] [facility] 01/04/2006 22:5 1 EDT 01/09/2006 22:51 EST us Katarina Reyes APRN MICROBIOLOGY - GENERAL ORDERABLES Final Result [facility] [address] [place] [address] documented in this encounter Visit Diagnoses Not on filedocumented in this encounter
--- OUTSIDE RECORDS SUMMARY | 2024-03-20 15:31 | XMS_ITS | Encounter Summary ---
Author Organization [facility] Address [address] [place] [address] Care Team Providers Care Air Conditioning Technician Name Role Phone ErinLinda gonzales LINUX KERNEL ENGINEER Primary Care Provider [phone] Reason for Referral * (Routine) - New Request Specialty Diagnoses / Procedures Referred By Zackery daniels Referred To Contact Diagnoses BRVO (branch retinal vein occlusion) Retinal edema Procedures OCT (OPHTHALMIC DIGITAL IMAGING, POSTERIOR SEGMENT) Nils Owen MD Phone: tel: fax: Referral ID Status Reason Start Date Expiration Date V isits Requested Visits Authorized [id number] New Request 05/09/2017 1 1 Reason for Visit * Reason Comments Eye Problem NPV- BRVO with ME ri ght eye Encounter Details Date Type Department Care Team (Late st Contact Info) Description 05/08/2017 12:45 EST Office Visit [facility] Ophthalmology - [facility] [address] [place] [address] Nils Owen MD [address] [facility], [address] [place] [id number] Social History Tobacco Use Types Packs/Day Years Used Date Smoking Tobacco: Light Smoker Cigarettes Smokeless Tobacco: Never Comments Unknown Sex and Gender Information Value [...] Owen MD - 05/08/2017 0000 EST [facility] OPHTHALMOLOGY May 08, 2017 Britta Zeng OD [facility] [address] [place] [address] RE: JOSE ALBERTO RAMIREZ : 1955 Dear [...] - Nils Owen MD en Dictation ID: [id number] cc: Linda Hardy MALE INFERTILITY SPECIALIST, [address] [place], [place] [address] Britta Zeng OD, [place] [address], [place] [address] documented in this encounter Plan of Treatment [...] d+ b heme/BRVO; CWS Normal Care Teams Air Conditioning Technician Relationship Specialty Start Date End Date Linda Khna, LINUX KERNEL ENGINEER PCP - General 04/19/17 02/12/18 documented as of this encounter
--- OUTSIDE RECORDS SUMMARY | 2024-03-20 15:31 | XMS_ITS | Encounter Summary ---
Author Organization [facility] Address [address] [place] [address] Care Team Providers Care Organic Preparation Analyst Name Role Phone Unavailable Primary Care Provider Unavailabl e Encounter Details Date Type Department Care Team (Late st Contact Info) Description 01/04/2006 Results Only [facility] conversion [address] [place] [address] Ming Berman, SOAKING PITS SUPERVISOR Social History Tobacco Use Types Packs/Day Years [...] JOSE ALBERTO RAMIREZ ? Accession #: ? [id number] : ? 1955 (Age: 50) ??F ?Collect Date: ? 01/04/2006 Location: ? [facility] ? Receive Date: ? 01/05/2006 Provider: ?MING BERMAN SOAKING PITS SUPERVISOR Copy to: ? Specimen/Source: ?ThinPrep Pap Test, Cervix/Endocervix, processed on Jaco Solars[employer] ThinPrep Imaging System, with manual evaluation Last [...] End of Report [facility] 01/04/2006 01/05/2006 us Ming Berman SOAKING PITS SUPERVISOR PATHOLOGY ORDERABLES Fi nal Result [facility] [address] [place] [address] documented in this encounter Visit Diagnoses Not on filedocumented in this encounter
--- OUTSIDE RECORDS SUMMARY | 2024-03-20 15:31 | XMS_ITS | Encounter Summary ---
Author Organization [facility] Address [address] [place] [address] Care Team Providers Care Elementary Assistant Teacher Name Role Phone Unavailable Primary Care Provider Unavailabl e Encounter Details Date Type Department Care Team (Late st Contact Info) Description 09/09/2003 Results Only [facility] [address] [place] [address] Ming Berman, NEAL Social History Tobacco Use Types Packs/Day Years [...] Issued [facility] Report Status Final [id number] [facility] 09/09/2003 15:0 5 EDT 09/23/2003 15:05 EDT us Ming Berman GANG PUSHER MICROBIOLOGY - GENERAL ORDERABLES Final Result [facility] [address] [place] [address] * CYTOPATHOLOGY (09/09/2003 0:00 EDT) Pathology Report: CYTOPATHOLOGY REPORT Reports generated via electronic interface contain original data; however they are lacking the format of the original report. Caution should be taken when reading/interpreti ng unformatted reports. Name: ? JOSE ALBERTO RAMIREZ ? Accession #: ? [id number] : ? 1955 (Age: 48) ??F ?Collect Date: ? 09/09/2003 Location: ? [facility] ? Receive Date: ? 09/11/2003 Provider: ?MING BERMAN GANG PUSHER Copy to: ? Specimen/Source: ?ThinPrep Pap Test, Cervix/Endocervix Last Menstrual Period: ? 08/19/03 Other: ? HPVA - HPV testing requested if ASC-US on the current ThinPrep Pap test. ? SPECIMEN ADEQUACY ? Satisfactory for Evaluation - transformation zone component present GENERAL CATEGORIZATION ? Epithelial Cell Abnormality INTERPRETATION ? Squamous Cell Abnormality - Atypical squamous cells, undetermined significance. EDUCATIONAL NOTES/RECOMMENDATI ONS ? [facility] recommends following the 2001 Consensus Guidelines for the Management of Women with Cervical Cytological Abnormalities (SEBASTIAN,2002;287:212 0-9). Management algorithms have been distributed by [facility] and are available online at www.ASCCP.org. ? Document reviewed and electronically signed by: ? LAURA EAGLE MD [facility] ? Report Date: ??09/23/2003 12:56 End of Report [facility] 09/09/2003 09/11/2003 us Mign Berman APRN PATHOLOGY ORDERABLES Fi nal Result Performing Organization Address City/State/[facility] Co de Phone Number [facility] [address] [place] [address] documented in this encounter Visit Diagnoses Not on filedocumented in this encounter
--- OUTSIDE RECORDS SUMMARY | 2024-03-20 15:31 | XMS_ITS | Encounter Summary ---
Author Organization [facility] Address [address] [place] [address] Care Team Providers Care Draw Machine Operator Name Role Phone Unavailable Primary Care Provider Unavailabl e Encounter Details Date Type Department Care Team (Late st Contact Info) Description 01/17/2007 Results Only [facility] [place] conversion [address] [place] [address] Ming Berman APRN Social History Tobacco Use [...] sufficient. [facility] Report Status Final [id number] [facility] 01/17/2007 10:1 2 EST 01/25/2007 10:12 EST us Ming Berman APRN MICROBIOLOGY - GENERAL ORDERABLES Final Result [facility] [address] [place] [address] * CYTOPATHOLOGY (01/17/2007 0:00 EST) Pathology Report: CYTOPATHOLOGY REPORT Reports generated via electronic interface contain original data; however they are lacking the format of the original report. Caution should be taken when reading/interpreti ng unformatted reports. Name: ? JOSE ALBERTO RAMIREZ ? Accession #: ? [id number] : ? 1955 (Age: 51) ??F ?Collect Date: ? 01/17/2007 Location: ? [facility] ? Receive Date: ? 01/21/2007 Provider: ?MING BERMAN ENGLISH HORN PLAYER Copy to: ? Specimen/Source: ?ThinPrep Pap Test, Cervix/Endocervix, processed on [employer] ThinPrep Imaging System, with manual evaluation Last Menstrual Period: ? Previous Gynecologic Pathology: ? ASC-US: negative HR HPV 08/13 ASC-US: 09/13 Other: ? Additional clinical information: Pap 12/15 wn HPVDX - HPV testing requested regardless of [...] End of Report [facility] 01/17/2007 01/21/2007 us Ming Berman APRN PATHOLOGY ORDERABLES Fi nal Result [facility] [address] [place] [address] documented in this encounter Visit Diagnoses Not on filedocumented in this encounter
--- OUTSIDE RECORDS SUMMARY | 2024-03-20 15:31 | XMS_ITS | Encounter Summary ---
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 Edema right eye Encounter Details Date Type Department Care Team (Late st Contact Info) Description 09/18/2017 12:30 EDT Office Visit [facility] Ophthalmology - [place] [id number] [place] [address] Nils Owen MD [address] [facility], [address] [place] [phone] Social History Tobacco Use Types Packs/Day Years [...] BMVO Normal Periphery Normal Normal Care Teams Dye Lab Technician Relationship Specialty Start Date End Date Linda Khan NP PCP - General 04/19/17 02/12/18 documented as of this encounter
--- OUTSIDE RECORDS SUMMARY | 2024-03-20 15:31 | XMS_ITS | Encounter Summary ---
Author Organization [facility] Address [address] [place] [address] Care Team Providers Care Pharmacy Graduate Intern Name Role Phone Ramona Melgar Primary Care Provider [phone] Encounter Details Date Type Department Care Team (Late st Contact Info) Description 08/17/2021 Lab Requisition [facility] Pathology & Laboratory Medicine - [address] [address] Polo Parker MD [address] [place] [address] [place] [id number] Encounter for screening for malignant neoplasm of [...] explore management options, if applicable. 08/19/2021 16:17 [facility] Final Diagnosis A. COLON, TRANSVERSE, POLYP, BIOPSY: - Tubular adenoma. B. COLON, SIGMOID, POLYPS, BIOPSY: - Hyperplastic polyps. 08/19/2021 16:17 [facility] Attestation By the signature below, the attending physician certifies that they have 1) personally conducted a gross and/or microscopic examination of the described specimen(s), and/or personally interpreted the results of laboratory testing of the described specimen(s), and 2) personally rendered or confirmed the above diagnosis. 08/19/2021 16:17 [facility] at 1617 Clinical History Colon cancer screening 08/19/2021 16:17 [facility] Gross Description A. [...] B1. RUSSEL LANDIN(ASCP) 08/18/2021 7:56 08/19/2021 16:17 [facility] Performing Lab [facility] 08/19/2021 16:17 [facility] Scanned Images 08/19/2021 16:17 [facility] Tissue ENTIRE SIGMOID COLON / Unknown 08/17/2021 14:06 EDT 08/17/2021 23:26 EDT Tissue specimen (specimen) SIGMOID COLON STRUCTURE / Unknown 08/17/2021 14:06 EDT 08/17/2021 23:26 EDT us Polo Parker MD PATHOLOGY ORDERABLES Fin al Result [facility] [address] [place] [address] documented in this encounter Visit Diagnoses Diagnosis Encounter for screening for malignant neoplasm of colon Special screening for malignant neoplasms, colon documented in this encounter Care Teams Pharmacy Graduate Intern Relationship Specialty Start Date End Date Ramona Melgar PCP - General 09/16/18 documented as of this encounter
--- OUTSIDE RECORDS SUMMARY | 2024-03-20 15:31 | XMS_ITS | Encounter Summary ---
Author Organization [facility] Address [address] [place] [address] Care Team Providers Care Career Agent Name Role Phone Ramona Melgar Primary Care Provider [phone] Encounter Details Date Type Department Care Team (Late st Contact Info) Description 01/25/2019 Lab Requisition [facility] Pathology & Laboratory Medicine - [address] [address] Unknown, Provider, Social History Tobacco Use Types [...] ova and parasites seen. 01/27/2019 13:40 EST [facility] Feces FECES / Unknown 01/25/2019 9 :25 EST 01/26/2019 16:35 EST Narrative [facility] - 01/27/2019 13:40 EST (If Cryptosporidium, Cyclospora, or Microsporidium are suspected, specific tests must be requested.) Single negative specimen does not rule out the possibility of a parasitic infection. us Provider Unknown MD MICROBIOLOGY - GENERAL ORDER JAMAL Final Result Performing Organization Address City/[facility] Co de Phone Number [facility] [address] [place] [address] * FECAL BACTERIAL PATHOGENS BY PCR (01/25/2019 9:25 EST) Salmonella PCR Negative Negative 01/27/2019 11:22 EST [facility] Shigella/Enteroin vasive E. coli Negative Negative 01/27/2019 11:22 EST [facility] HN LAB CAMPYLOBACTER PCR Negative Negative 01/27/2019 11:22 EST [facility] Shiga Toxin PCR Negative Negative 9 11:22 EST [facility] Feces FECES / Unknown 01/25/2019 9 :25 EST 01/26/2019 16:35 EST us Provider Unknown MICROBIOLOGY - GENERAL ORDER JAMAL Final Result Performing Organization Address [facility] Co de Phone Number [facility] [address] [place] [address] documented in this encounter Visit Diagnoses Not on filedocumented in this encounter Care Teams Career Agent Relationship Specialty Start Date End Date Ramona Melgar PCP - General 09/16/18 documented as of this encounter
--- OUTSIDE RECORDS SUMMARY | 2024-03-20 15:31 | XMS_ITS | Encounter Summary ---
Author Organization [facility] Address [address] [place] [address] Care Team Providers Care Plodding Operator Name Role Phone ErinLinda gonzales THEATER TEACHER Primary Care Provider [phone] Reason for Referral * (Routine) - New Request Specialty Diagnoses / Procedures Referred By Zackery daniels Referred To Contact Diagnoses BRVO (branch retinal vein occlusion) Retinal edema Procedures FLUORESCEIN ANGIOGRAPHY Nils Owen MD Phone: tel: fax: Referral ID Status Reason Start Date Expiration Date V isits Requested Visits Authorized [id number] New Request 06/05/2017 1 1 * (Routine) - New Request Specialty Diagnoses / Procedures Referred By Zackery daniels Referred To Contact Diagnoses BRVO (branch retinal vein occlusion) Retinal edema Procedures EYE PHOTOGRAPHY (FUNDUS) Nils Owen MD Phone: tel: fax: Referral ID Status Reason Start Date Expiration Date V isits Requested Visits Authorized [id number] New Request 06/05/2017 1 1 * (Routine) - New Request Specialty Diagnoses / Procedures Referred By Zackery daniels Referred To Contact Diagnoses BRVO (branch retinal vein occlusion) Retinal edema Procedures OCT (OPHTHALMIC DIGITAL IMAGING, POSTERIOR SEGMENT) Nils Owen MD Phone: tel: fax: Referral ID Status Reason Start Date Expiration Date V isits Requested Visits Authorized [id number] New Request 06/05/2017 1 1 Reason for [...] Info) Description 06/05/2017 12:30 EDT Office Visit [facility] Ophthalmology - [facility] [address] [place], [place] [id number] Nils Owen MD [address] [facility], [address] [place] [address] Social History Tobacco Use Types [...] note has been dictated. Spoke with Dr Christie re this patient and he felt that since patient was trending better and BP was improving it would be best to follow at this point rather than initiate injections so will recommend careful follow up. This has been conveyed to patient via Raudel Thomason ( stressed importance of keeping f/u appts) I, Dr. Owen, have performed my own HPI and reviewed the tech's ROS. I have also reviewed the patient's past medical, family, social and surgical history, as well as the patient's medications, allergies, and problem list. I am scribing for, Nils Owen MD, while he is personally performing the service. Anjana Narayanan, KRYSTAL (Scribe) * Nils Owen MD - 06/05/2017 0000 EDT [facility] OPHTH[facility] June 05, 2017 RE: JOSE [...] - Nils Owen MD jn Dictation ID: [id number] Britta Israel copy IVFA/PHOTOS documented in this [...] may reflect changes made after this encounter. hydroCHLOROthiaz hayley (HYDRODIURIL) 25 mg tablet Take 25 mg [...] INHALATION) Inhale 1 Puff as directed. 09/18/2018 budesonide-formo terol HFA (SYMBICORT) 160-4.5 mcg/actuation HFA aerosol inhaler [...] Normal Normal Periphery Normal Normal Care Teams Plodding Operator Relationship Specialty Start Date End Date Linda Khan NP PCP - General 04/19/17 02/12/18 documented as of this encounter
--- OUTSIDE RECORDS SUMMARY | 2024-03-20 15:31 | XMS_ITS | Encounter Summary ---
Author Organization [facility] Address [address] [place] [address] Care Team Providers Care Commercial Underwriter Name Role Phone Unavailable Primary Care Provider Unavailabl e Encounter Details Date Type Department Care Team (Late st Contact Info) Description 10/23/2003 Results Only [facility] [place] conversion [address] [place] [address] Katarina Reyes APRN Social History Tobacco Use [...] 68. [facility] Report Status Final [id number] [facility] 10/23/2003 8:32 EDT 10/26/2003 8:32 EDT us Katarina Reyes APRN MICROBIOLOGY - GENERAL ORDERABLES Final Result [facility] [address] [place] [address] documented in this encounter Visit Diagnoses Not on filedocumented in this encounter
--- OUTSIDE RECORDS SUMMARY | 2024-03-20 15:31 | XMS_ITS | Encounter Summary ---
Author Organization [facility] Address [address] [place] [address] Care Team Providers Care Supervisor Wood Room Name Role Phone Ramona Melgar Primary Care Provider [phone] Reason for Visit * Reason Comments Eye Problem Return in about 6 mo nths OCT Macular for BMVO, RE right eye. Vision seems better right eye, same left. Denies pain, flashes, no floaters. Encounter Details Date Type Department Care Team (Late st Contact Info) Description 09/18/2018 12:45 EDT Office Visit [facility] Ophthalmology - [address] [address] Nils Owen MD [address] [facility], [address] [place] [address] Social History Tobacco Use Types [...] HOSPITAL OPHTHALMOLOGY September 18, [address] [facility] [address] [place] [address] RE: JOSE ALBERTO RAMIREZ : 1955 Dear [...] the time is right at this j [facility]. I have suggested the patient see me [...] - Nils Owen MD mn Dictation ID: [id number] cc: Britta Zeng OD, [place] [address], [facility], [place] [address] documented in this encounter Plan of Treatment [...] nicking attenuation Periphery Normal Normal Care Teams Supervisor Wood Room Relationship Specialty Start Date End Date Ramona Melgar PCP - General 09/16/18 documented as of this encounter
--- OUTSIDE RECORDS SUMMARY | 2024-03-20 15:31 | XMS_ITS | Encounter Summary ---
Author Organization [facility] Address [address] [place] [address] Care Team Providers Care New Accounts Representative Name Role Phone Unavailable Primary Care Provider Unavailabl e Encounter Details Date Type Department Care Team (Late st Contact Info) Description 08/29/2001 Results Only [facility] conversion [address] [place] [address] Samantha Cortez CNM Social History Tobacco Use [...] JOSE ALBERTO RAMIREZ ? Accession #: ? [id number] : ? 1955 (Age: 46) ??F ?Collect Date: ? 08/29/2001 Location: ? [facility] ? Receive Date: ? 09/02/2001 Provider: ?SAMANTHA JARVISM Copy to: ? Specimen/Source: [...] End of Report MUNIRA OLIVEROS 08/29/2001 09/02/2001 us Samantha Cortez CNGume PATHOLOGY ORDERABLES Final Resu lt MUNIRA OLIVEROS [address] [place] [address] documented in this encounter Visit Diagnoses Not on filedocumented in this encounter
--- OUTSIDE RECORDS SUMMARY | 2024-03-20 15:31 | XMS_ITS | Clinical Summary ---
Author Organization [facility] Address [address] [place] [address] Care Team Providers Care Substance Abuse Rn Name Role Phone Ramona Melgar Primary Care Provider [phone] Allergies Active Allergy Reactions Criticality Noted Date [...] Last Done Comments Hepatitis C Screen 1955 Fall Risk Screening 2022 COVID-19 Vaccine ( - 2023-25 season) 2023 RSV Immunization ( o r 60+ Years) (1 - 1-dose 75+ series) 2032 Insurance [place]ID [place] Care Teams Substance Abuse Rn Relationship Specialty Start Date End Date Ramona Melgar PCP - General 09/16/18
--- OUTSIDE RECORDS SUMMARY | 2024-03-20 15:31 | XMS_ITS | Encounter Summary ---
Author Organization [facility] Address [address] [place] [address] Care Team Providers Care Tool Coordinator Name Role Phone Unavailable Primary Care Provider Unavailabl e Encounter Details Date Type Department Care Team (Late st Contact Info) Description 09/04/2002 Results Only [facility] conversion [address] [place] [address] Ming Berman, ARCHITECTURAL TECHNICIAN Social History Tobacco Use Types Packs/Day Years [...] JOSE ALBERTO RAMIREZ ? Accession #: ? [id number] : ? 1955 (Age: 47) ??F ?Collect [...] End of Report MUNIRA OLIVEROS 09/04/2002 09/08/2002 us Ming Berman APRN PATHOLOGY ORDERABLES Fi nal Result MUNIRA OLIVEROS [address] [place] [address] documented in this encounter Visit Diagnoses Not on filedocumented in this encounter
--- OUTSIDE RECORDS SUMMARY | 2024-03-20 15:31 | XMS_ITS | Encounter Summary ---
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 Ophthalmology - [facility] [address] [place] [address] Nils Owen MD [address] [facility], [address] [place] [address] Social History Tobacco Use Types [...] Owen MD - 07/10/[address] [facility] OPHTHALMOLOGY July 10, 2017 Britta Zeng [facility] [address] [place] [address] RE: JOSE ALBERTO RAMIREZ : 1955 Dear [...] - Nils Owen MD cn Dictation ID: [id number] cc: Britta Azucena , [address], [place] [address] documented in this encounter Plan of Treatment [...] nicking Normal Periphery Normal Normal Care Teams Cured Meats Supervisor Relationship Specialty Start Date End Date Linda Khan, PLANT NURSERY WORKER PCP - General 04/19/17 02/12/18 documented as of this encounter
--- OUTSIDE RECORDS SUMMARY | 2024-03-20 15:31 | XMS_ITS | Encounter Summary ---
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 No vision changes but her eyes get tired when she reads now. No new floaters or flashes. No pain. Encounter Details Date Type Department Care Team (Late st Contact Info) Description 03/25/2018 12:45 EST Office Visit [facility] Ophthalmology - [address] [id number] Nils Owen MD [address] [facility], [address] [place] [address] Social History Tobacco Use Types [...] the affected eye. NS cataract right eye eLah Ramirez was instructed that she has a [...] may reflect changes made after this encounter. fluticasone/umecl idin/vilanter (TRELEGY ELLIPTA INHALATION) Inhale as directed. fluticasone [...] AV nicking Periphery Normal Normal Care Teams Autobody Technician Relationship Specialty Start Date End Date Unknown, Provider, PCP - General 02/13/18 09/15/18 documented as of this encounter
--- OUTSIDE RECORDS SUMMARY | 2024-03-20 15:31 | XMS_ITS | Encounter Summary ---
Author Organization [facility] Address [address] [place] [address] Care Team Providers Care Fruit Inspector Name Role Phone Ramona Melgar Primary Care Provider [phone] Encounter Details Date Type Department Care Team (Late st Contact Info) Description 11/11/2020 Lab Requisition [facility] Pathology & Laboratory Medicine - [address] [address] Outr Resulting Lab, Provider Social History Tobacco [...] Unknown 11/11/2020 14:31 EDT 11/11/2020 21:05 EDT us Provider Outr Resulting Lab MICROBIOLOGY - GENER AL ORDERABLES Final Result Performing Organization Address City/[facility] Co de Phone Number [facility] [address] [place] [address] * COVID-19 TESTING (11/11/2020 14:31 EDT) COVID-19 rt-PCR Result Negative Negative 11/12/2020 15:18 EDT [facility] Comment: This test has not [...] performed using the elvin SARS-CoV-2 assay ([employer] on the Elvin 6800 System Performing Lab Elvin [address] [facility] Lab 11/12/2020 15:18 EDT [facility] Swab 11/11/2020 14:3 1 EDT 11/11/2020 21:05 EDT us Provider Outr Resulting Lab MICROBIOLOGY - GENER AL ORDERABLES Final Result Performing Organization Address [facility]/ZIP Co de Phone Number [facility] [address] [place] [address] documented in this encounter Visit Diagnoses Not on filedocumented in this encounter Care Teams Fruit Inspector Relationship Specialty Start Date End Date Ramona Melgar PCP - General 09/16/18 documented as of this encounter
[2024-03-20 16:24] LABS: Abs Immature Grans 0.04 10^3/uL (0.0-0.06); Absolute Basophil Count 0.05 10^3/uL (0.0-0.2); Absolute Eosinophil Count 0.04 10^3/uL (0.0-0.7); Absolute Lymphocyte Count 1.14 10^3/uL (1.2-3.4); Absolute Monocyte Count 0.48 10^3/uL (0.1-0.8); Absolute Neutrophil Count 4.92 10^3/uL (1.2-6.7); Basophils % 0.7 %; Eosinophils % 0.6 %; HCT 40.5 % (36.0-46.0); HGB 13.4 g/dL (11.2-15.7); Immature Grans % 0.6 %; Lymphocytes % 17.1 %; MCH 31.8 pg (27.0-33.0); MCHC 33.1 % (32.0-36.0); MCV 96 fL (80-95); MPV 10.2 fL (8.0-11.0); Monocytes % 7.2 %; Neutrophils % 73.8 %; Platelet Count 311 10^3/uL (130-400); RBC 4.21 10^6/uL (3.93-5.22); RDW 12.6 % (11.7-14.6); RDW-SD 44.5 fL; WBC 6.67 10^3/uL (4.4-10.8)
[2024-03-20 16:44] LABS: ALT 28 U/L (14-59); AST 32 U/L (15-37); Albumin 3.7 g/dL (3.4-5.0); Alkaline Phosphatase 107 U/L (46-116); Anion Gap 10.2 mmol/L (3-11); BUN 14 mg/dL (7-18); CO2 26.8 mmol/L (21.0-32.0); CREATININE 1.1 mg/dL (0.55-1.02); Calculated LDL 204 mg/dL (<100); Chloride 103 mmol/L (98-107); Cholesterol 314 mg/dL (<200); Estimated GFR 55.07 (mL/min/1.73m2); Glucose 103 mg/dL (74-106); HDL Cholesterol 77 mg/dL (40-60); Potassium 4.1 mmol/L (3.5-5.1); Sodium 140 mmol/L (136-145); TSH (W/Ref FT4) 0.59 uIU/mL (0.36-3.74); Total Protein 7.7 g/dL (6.4-8.2); Triglyceride 165 mg/dL (<150)
[2024-03-21 09:19] LABS: Hepatitis C Ab w Rflx HCV PCR Negative (Negative)
== END 2024-03-20 15:08 | disposition home or self-care (01) ==
LOC: NCHCN 15:07
PROVIDERS: PCP Nurse Practitioner Family; Visit Provider Nurse Practitioner Family
DX: F41.9 Anxiety disorder, unspecified (principal); I10 Essential (primary) hypertension; Z11.59 Encounter for screening for other viral diseases; E78.5 Hyperlipidemia, unspecified
CPT/HCPCS: 80053; 80061; 86803; 84443; 85025

== ENCOUNTER → 2024-03-25 09:32 | Outpatient (BNVA) | payer MEDICARE, MEDICAID, SELFPAY | PROVIDERS: PCP Nurse Practitioner Family; Referring Provider Nurse Practitioner Family; Visit Provider Physician Assistant Surgical | DX: J44.9 Chronic obstructive pulmonary disease, unspecified (principal); J98.4 Other disorders of lung; Z87.891 Personal history of nicotine dependence | CPT/HCPCS: 99214 ==

== ENCOUNTER 2024-05-15 01:40 | Outpatient (CLI) | payer MEDICARE, MEDICAID, SELFPAY ==
--- NOTE | 2024-05-15 | DI.DEXA_ITS ---
Exam(s) XR DEXA BONE DENSITY W/WO LAZARO EXAM: XR DEXA BONE DENSITY W/WO LAZARO CLINICAL HISTORY: Z78.0 Asymptomatic menopausal state TECHNIQUE: Hologic Horizon C densitometer analysis of left hip, lumbar spine and left forearm. Lat eral survey image of the thoracic and lumbar spine. COMPARISON: CR XR DEXA BONE DENSITY W/WO LAZARO from 09/07/2020 FINDINGS: Lateral view of the thoracic and lumbar spine shows no evidence of compression fractures. Bone mineral density measurements of the lumbar spine correspond to a total T-score of -1.5, in the osteopenic range, not significantly changed from prior. Bone mineral density measurements of the left hip correspond to a total T-score of -2.3, unchanged f rom prior. The femoral neck T-score is -3.0, in the osteoporotic range.. Theleft forearm bone mineral density measurements correspond to a T-score of the distal 3rd of -0.7, in the normal range, not significantly changed from prior. IMPRESSION: Osteopenia of the spine and hip. Normal bone density of the forearm.
--- NOTE | 2024-05-15 12:02 | DI.MAMMO_ITS ---
Exam(s) MAMMO SCREENING EXAM: MAMMO SCREENING CLINICAL HISTORY: Z12.31 screening. TECHNIQUE: Bilateral full field digital CC and MLO mammographic images were obtained with 3D tomosyn thesis and utilizing computer aided detection (CAD). COMPARISON: Prior mammograms were reviewed. FINDINGS: There has been no significant change in the appearance and distribution of the fibroglandular tissue. No CAD designations. There are no new spiculated masses nor malignant appearing microcalcification groups. Posteromedial located mole on the right breast is unchanged. There is no significant architectural distortion nor skin thickening-retraction. IMPRESSION: No radiographic evidence of malignancy. BI-RADS Category 1 - Negative Breast Density - Category B - Scattered areas of fibroglandular density Breast density Category C or D implies that the patient has dense breast tissue. Dense breast tissue can make it harder to find cancer on a mammogram. Dense breast tissue is also associated with an incr eased risk of breast cancer. This information about the result of the mammogram report was provided to the patient to raise their awareness. Use this report when you speak with the patient about their risks for breast cancer, which includes their family history. At that time, you may recommend additional screening tests (Ultrasoun d or MRI) as these tests may add significant information. A negative radiographic report should not delay biopsy if a dominant or clinically suspicious mass is present. Up to ten percent of cancers are not identified on mammography. A negative report may reinforce clinical impression. Adenosis and dense breasts may obscure an underlying neoplasm. False positive reports average 6 to 10%. Patient will receive a letter notifying them of these results.
== END 2024-05-15 02:00 ==
PROVIDERS: PCP Nurse Practitioner Family; Visit Provider Nurse Practitioner Family
DX: Z12.31 Encounter for screening mammogram for malignant neoplasm of breast (principal); M85.89 Other specified disorders of bone density and structure, multiple sites; Z78.0 Asymptomatic menopausal state
CPT/HCPCS: 77063; 77067; 77080

== ENCOUNTER → 2024-09-23 10:31 | Outpatient (BNVA) | payer MEDICARE, MEDICAID, SELFPAY | PROVIDERS: PCP Physician Assistant; Referring Provider Nurse Practitioner Family; Visit Provider Physician Assistant Surgical | DX: J44.9 Chronic obstructive pulmonary disease, unspecified (principal); J98.4 Other disorders of lung; Z87.891 Personal history of nicotine dependence | CPT/HCPCS: 99214 ==

== ENCOUNTER 2024-09-29 02:11 | Outpatient (CLI) | payer MEDICARE, MEDICAID, SELFPAY ==
[2024-09-29] MEDS: Inhaler, Assist Device 1 EACH MC (09:20)
[2024-09-29] MEDS: Levalbuterol HFA 15 GM INH 4 PUFF IH (09:21)
--- NOTE | 2024-09-29 10:43 | W.PFT ---
Date of service: 09/29/24 Time of Service: 08:00 Pulmonary Function Test Result Indications: COPD Impression Interpretation: 1. Good patient effort was noted. Reproducibility standards were met. 2. Spirometry showed mild obstructive lung disease with an FEV1 of 92% (1.96 L) 3. TLC and RV were elevated, consistent with mild air-trapping. No evidence of restrictive lung disease 4. DLCO was reduced at 76%, consistent with a mild defect in alveolar gas exchange Clinical Correlation therefore is recommended.
== END 2024-09-29 02:12 | disposition home or self-care (01) ==
LOC: RT 02:11
PROVIDERS: PCP Physician Assistant; Visit Provider Internal Medicine Pulmonary Disease
DX: J44.9 Chronic obstructive pulmonary disease, unspecified (principal); R06.00 Dyspnea, unspecified
CPT/HCPCS: 94060; 94726; 94729

== ENCOUNTER 2024-10-14 03:28 | Outpatient (CLI) | payer MEDICARE, MEDICAID, SELFPAY ==
--- NOTE | 2024-10-14 06:15 | DI.CTLCSR_ITS ---
Exam(s) CT CHEST LUNG CANCER SCREEN EXAM: CT CHEST LUNG CANCER SCREEN CLINICAL HISTORY: Screening for lung cancer,former cigarette smoker, z87.891 TECHNIQUE: Imaging Protocol: Axial computed tomography images with coronal and sagittal reformatted images were created and reviewed. Lung Computer Aided Detection (CAD) was utilized. COMPARISON: MR [facility] ABDOMEN WO/W from 02/23/[address] CHEST LUNG CANCER SCREEN from 09/05/[address] CHEST LUNG CANCER SCREEN from 10/11/2023 FINDINGS: Tracheobronchial tree: Patent where visualized. No bronchiectasis. Pulmonary parenchyma: Moderate centrilobular emphysematous changes are present. There are few calcified granuloma present. No focal consolidating infiltrates are present. Lung Nodules: There are stable nodules in the lungs. The largest on the right measures 4 mm (series 8, image 61). The largest on the left measures 3 mm (series 8, image 57). There are no new pulmonary nodules. Mediastinum and Lynn: No dominant adenopathy or fluid collection. The esophagus is unremarkable. Thyroid gland: Unremarkable. Lymph nodes: Unremarkable. Pleura: No effusion or pneumothorax. Heart: The heart is not dilated. Mild single-vessel coronary artery calcification is present. No pericardial effusion. Aorta: Thoracic aorta non-dilated.Atherosclerotic calcification is present. Upper abdomen: There is a stable area of decreased attenuation seen in the lateral aspect of the right lobe of the liver. Previous examinations have shown this to be a hemangioma. Soft Tissues: There is a stable lipoma in the left axilla. Bones: Within normal limits. IMPRESSION: Stable pulmonary nodules. No new pulmonary nodules. Lung RADS Cat 2 - Benign Appearance / Behavior: Nodules with a very low likelihood of becoming a clinically active cancer due to size or lack of growth Lung-RADS 1.0 CATEGORIES: Category 0 - Prior chest CT exam(s) being located for comparison. Category 1 - Annual screening in 12 months. No nodules or definitely benign nodules. Category 2 - Annual screening in 12 months. Benign appearance. Nodules with low likelihood of becoming active cancer. Category 3 - 6-month follow-up. Probably benign. Short-term follow-up suggested. Nodules with low likelihood of becoming active cancer. Category 4A - 3-month follow-up and CT/PET if >8 mm in size. Suspicious finding. Findings which require additional testing. Category 4B - Findings which require additional testing and tissue sampling. Suspicious finding. Category 4X - Category 3 or 4 nodules with additional features or imaging findings that increases the suspicion of malignancy. Modifier S- Potentially clinically significant finding. (Non lung cancer) RADIATION DOSE DELIVERED: 25.13mGy.cm Total DLP 25.13mGy.cmTotal DLP DATA REPOSITORY: All CT scans at this facility are submitted to the National Radiology Data Registry (NRDR) Dose Index Registry (DIR) with the [employer] (A[employer]). RADIATION OPTIMIZATION: All CT scans at this facility use at least one of these dose optimization techniques: automated exposure control; mA and/or kV adjustment per patient size (includes targeted exams where dose is matched to clinical indication); or iterative reconstruction.
== END 2024-10-14 03:48 ==
PROVIDERS: PCP Physician Assistant; Visit Provider Physician Assistant Surgical
DX: Z12.2 Encounter for screening for malignant neoplasm of respiratory organs (principal); Z87.891 Personal history of nicotine dependence; R91.1 Solitary pulmonary nodule
CPT/HCPCS: 71271

== ENCOUNTER 2024-11-22 10:36 | Outpatient (REF) | payer MEDICARE, MEDICAID, SELFPAY ==
--- NOTE | 2024-11-22 | DI.RAD_ITS ---
Exam(s) XR HAND RT COMPLETE EXAM: XR HAND RT COMPLETE CLINICAL HISTORY: right hand pain ICD-19: M79.641. TECHNIQUE: 2D digital imaging was performed. COMPARISON: No exams were available for comparison FINDINGS: 3 views No evidence of acute fracture nor dislocation nor radiopaque foreign body. There is significant degenerative change at the proximal interphalangeal joint 2nd-index finger. There is a small osteophytic density evident off the medial aspect of this articulation which appears corticated. There is also a mild deformity at the level of the medial aspect of the head of the proximal phalanx which may be a nonacute fracture site. The DIP joint of the same finger and MCP joint are unremarkable. 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 Possible nonacute fracture at this level. DATA REPOSITORY: RADIATION DOSE DELIVERED:
--- NOTE | 2024-11-22 12:24 | DI.VRAD_ITS ---
PROCEDURE INFORMATION: Exam: XR Right Hand Exam date and time: 11/22/2024 11:07 AM Age: 69 years old Clinical indication: Pain; Hand; Right; Attention to 5th digit TECHNIQUE: Imaging protocol: Radiologic exam of the right hand. Views: 3 or more views. COMPARISON: No relevant prior studies available. FINDINGS: Limitations: Overlapping of digits on the lateral projection. Bones/joints: No acute or suspicious osseous abnormalities. Marked bony productive changes of the 2nd proximal interphalangeal joint with associated moderate ulnar deviation of the 2nd middle phalanx. Otherwise unremarkable. Soft tissues: Soft tissue swelling of the hand. IMPRESSION: 1. No acute fracture. 2. 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 Dictated and Authenticated by: Zuri Tsai MD. Orderin Saw Salgado MD
== END 2024-11-22 10:56 ==
LOC: DI 10:36
PROVIDERS: PCP Physician Assistant; Visit Provider Physician Assistant Medical
DX: M19.041 Primary osteoarthritis, right hand (principal)
CPT/HCPCS: 73130